=== PATIENT | female | born 1930 | race Caucasian/White ===

== ENCOUNTER 2017-06-07 08:22 | Inpatient (IN) ==
--- NOTE | 2017-06-07 09:09 | XRay Report ---
CLINICAL INFORMATION: Right hip injury TECHNIQUE: AP pelvis. AP and lateral right hip COMPARISON: None. FINDINGS: Comminuted right intertrochanteric hip fracture with foreshortening and varus angulation deformity. Pelvis is negative. No fracture. No lytic lesion. Sacrum is negative. IMPRESSION: Right intertrochanteric hip fracture as above Interpreted and Authenticated by: Hugo Alejandre 06/07/17
--- NOTE | 2017-06-07 09:10 | XRay Report ---
INDICATION: Preoperative evaluation. Hip fracture. TECHNIQUE: AP chest x-ray,supine portable COMPARISON: None FINDINGS:Lungs are negative. No parenchymal infiltrate or mass. Heart size and vascularity are normal. No pulmonary edema. No pulmonary congestion. Flaquita and mediastinum are negative. IMPRESSION: Negative AP portable chest x-ray Interpreted and Authenticated by: Hugo Alejandre 06/07/17
--- NOTE | 2017-06-07 09:16 | Emergency Department Note ---
Fall HPI - General Chief Complaint: Fall Stated Complaint: Fall, hip pain Time Seen by Provider: 06/07/17 09:15 Source: EMS Mode of arrival: EMS - History of Present Illness HPI Narrative: Patient presents, third fall in the last week. Moved to long-term care facility within the last year, previously under the care of Dr. Clay Dimas in [place]. Advancing dementia, generally in good health. Recent falls included closed head injury, lip laceration, and chest contusion. Unobserved fall today , brought in by ambulance due to pain, treated in route due to suspected hip fracture. Patient poor historian. Daughter and POA at the bedside. Discussion of goals of care, has confirmed with family for surgery, DNR status otherwise. - Related Data Allergies Allergy/AdvReac Type Severity Reaction Status Date / Time penicillin V Allergy Intermediate RASH Unverified 10/30/14 23:45 Sulfa (Sulfonamide Allergy Unknown Verified 06/07/17 08:33 Antibiotics) Review of Systems Limitations: ROS unobtainable due to patients medical condition Fall PMH - Past Medical History Attestation: Yes: The following information was validated with the patient. PMFSH Narrative: History Per POA Medical history: Reports: dementia. Denies: COPD, coronary artery disease Surgical history ED: Reports: other (Ankle fusion) Family history: Reports: non-contributory - Social History smoking status: Unknown if ever smoked Physical Exam Limitations: altered mental status General appearance: alert, in distress Head: other (Crusted blood, dry on the occiput) Eye: Present: normal appearance, PERRL ENT: normal exam, mucous membranes dry Neck: Present: tenderness (With range of motion, unable to localize) Chest: Present: normal inspection Respiratory: Present: normal lung sounds bilaterally. Absent: respiratory distress Cardiovascular: Present: regular rate, normal rhythm. Absent: systolic murmur Abdominal: Present: soft. Absent: tenderness Extremities: Present: other (Shortened right leg; intact cap refill bilateral) Neurological: Present: alert. Absent: oriented X3 Skin: Present: warm, dry Course - Reevaluation(s) Reevaluation #1: Dr Korey elias, hospitalist to consult Time: 11:19 Vital Signs Temperature 97.7 F 06/07/17 08:24 Pulse Rate 86 06/07/17 08:24 Respiratory Rate 18 01/10/18 08:24 Blood Pressure 157/73 01/10/18 08:24 Pulse Oximetry (%) 97 06/07/17 08:24 Temperature 97.7 F 06/07/17 08:24 Pulse Rate 89 06/07/17 10:12 Respiratory Rate 18 06/07/17 08:24 Blood Pressure 162/74 06/07/17 10:12 Pulse Oximetry (%) 100 06/07/17 10:12 Fall - Lab Data Lab results reviewed: Yes I reviewed the patient's lab results. Result diagrams: 06/07/17 09:10 06/07/17 09:10 Lab Results 06/07/17 06/07/17 06/07/17 Range/Units 09:10 09:10 09:10 WBC 9.3 (4.5-11.0) K/mcL RBC 3.92 L (4.00-5.20) M/mcL Hgb 12.7 (12.0-15.0) g/dL Hct 37.5 (36.0-48.0) % MCV 95.7 (80.0-100.0) fL MCH 32.4 (26.0-34.0) pg MCHC 33.9 (31.0-36.0) g/dL RDW 12.7 (11.5-14.5) % Plt Count 212 (140-440) K/mcL MPV 6.8 L (7.4-10.4) fL Gran % 85.3 H (38.0-78.0) % Lymph % (Auto) 9.2 L (15.5-49.0) % Darke % (Auto) 4.6 (1.0-12.0) % Eos % (Auto) 0.7 (0.0-7.0) % Baso % (Auto) 0.2 (0.0-2.0) % Gran # 8.0 (1.8-8.0) K/mcL Lymph # (Auto) 0.9 L (1.5-4.8) K/mcL Darke # (Auto) 0.4 (0.1-0.9) K/mcL Eos # (Auto) 0.1 (0.0-0.7) K/mcL Baso # (Auto) 0 (0.0-0.3) K/mcL PT 13.8 (11.9-14.5) sec INR 1.0 (0.9-1.1) Sodium 140 (133-145) mmol/L Potassium 3.9 (3.3-5.1) mmol/L Chloride 104 (96-108) mmol/L Carbon Dioxide 22 (22-30) mmol/L Anion Gap 14.0 (8-16) BUN 20 (8-23) mg/dl Creatinine 0.9 (0.6-1.1) mg/dl GFR Calculation 57 Glucose 130 H (70-105) mg/dL Calcium 8.3 L (8.6-10.4) mg/dl Total Bilirubin 1.0 (0.0-1.0) mg/dL AST 18 (0-37) U/l ALT 12 (0-40) U/l Alkaline Phosphatase 68 (39-117) U/L Total Protein 6.2 (5.9-8.4) gm/dL Albumin 3.5 (3.2-5.2) gm/dL Globulin 2.7 (2.2-3.7) gm/dL Albumin/Globulin Ratio 1.3 (1.0-2.3) - Radiology Data Radiology results reviewed: Yes I reviewed the patient's radiology results. Right intertrochanteric fracture Chest x-ray No acute findings on head and neck CT Disposition Pt seen by [facility]DER/PA only: No Clinical Impression: Dementia Intertrochanteric fracture of right hip Qualifiers: Encounter type: initial encounter Fracture type: closed Fracture alignment: displaced Qualified Code(s): S72.141A - Displaced intertrochanteric fracture of right femur, initial encounter for closed fracture Summary: Discussed with family, previously ambulatory, family wanting to pursue surgery Disposition: Xfer As Inpt ([facility]) Condition: Fair Referrals: Vic Dimas MD [Primary Care Provider] -
[2017-06-07] MEDS ORDERED: HYDROmorphone 2 MG/ML SYRINGE IV PRN ×3 (09:42→18:25)
[2017-06-07 09:46] LABS: Basophils # (Auto) 0 K/mcL (0.0-0.3); Basophils % (Auto) 0.2 % (0.0-2.0); Eosinophils # (Auto) 0.1 K/mcL (0.0-0.7); Eosinophils % (Auto) 0.7 % (0.0-7.0); Granulocytes % (Auto) 85.3 % (38.0-78.0); Lymphocytes # (Auto) 0.9 K/mcL (1.5-4.8); Lymphocytes % (Auto) 9.2 % (15.5-49.0); Mean Cell Volume 95.7 fL (80.0-100.0); Mean Corpuscular HGB Conc 33.9 g/dL (31.0-36.0); Mean Corpuscular Hemoglobin 32.4 pg (26.0-34.0); Monocytes # (Auto) 0.4 K/mcL (0.1-0.9); Monocytes % (Auto) 4.6 % (1.0-12.0); Platelet Count 212 K/mcL (140-440); RBC 3.92 M/mcL (4.00-5.20); Red Cell Distribution Width 12.7 % (11.5-14.5)
[2017-06-07 10:09] LABS: ALT/SGPT 12 U/l (0-40); Albumin 3.5 gm/dL (3.2-5.2); Albumin/Globulin Ratio 1.3 (1.0-2.3); Alkaline Phosphatase 68 U/L (39-117); Blood Urea Nitrogen 20 mg/dl (8-23)
--- NOTE | 2017-06-07 10:16 | Cat Scan Report ---
CLINICAL INFORMATION: Fall. Head injury. COMPARISON: None. TECHNIQUE: Axial noncontrast-enhanced images through the brain. FINDINGS: No acute intracranial hemorrhage. No subdural hematoma. No subarachnoid hemorrhage. No intra-axial hematoma. No focal attenuation abnormality or localized mass effect. No midline shift. Cerebral atrophy with enlarged ventricles and prominent superficial subarachnoid spaces. There is white matter abnormality with low density in a predominantly periventricular distribution. Brainstem and cerebellum are negative. Basilar cisterns are negative. No calvarial fracture. Temporal bones are negative. IMPRESSION: 1. No posttraumatic abnormality 2. No acute intracranial hemorrhage. 3. Cerebral atrophy and white matter abnormality Interpreted and Authenticated by: Hugo Alejandre 06/07/17
--- NOTE | 2017-06-07 10:19 | Cat Scan Report ---
CLINICAL INFORMATION: Fall TECHNIQUE: Thin section axial images through the cervical spine. Sagittally and coronally reformatted images COMPARISON: None. FINDINGS: No cervical spine fracture. Cervical vertebral bodies and spinous processes are negative. Facet joints are normally aligned. No perched or locked facet. Odontoid process is negative. No lateral axial subluxation. C1 and necks of both condyles are negative. Multilevel degenerative disc disease and facet arthropathy. Severe degenerative disc disease C4-C5, C5-C6, C6-C7. No prevertebral soft tissue swelling. Lung apices are negative. No pneumothorax. IMPRESSION: 1. Multilevel degenerative disc disease and facet arthropathy 2. No cervical spine fracture. Interpreted and Authenticated by: Hugo Alejandre 06/07/17
[2017-06-07] MEDS ORDERED: HALOPERIDOL LACTATE 5 MG/ML VIAL IV ONE (13:36)
[2017-06-07] MEDS ORDERED: oxyCODONE/APAP 5/325MG TABLET PO PRN (13:50)
[2017-06-07 14:34] LABS: Appearance,Urine CLEAR; Bacteria,Urine 0 /hpf (0); Bilirubin,Urine NEG (NEG); Color,Urine YELLOW; Glucose,Urine (UA) NEGATIVE (NEG); Leukocyte Esterase,Urine NEG /uL (NEG); Mucus,Urine FEW /hpf (0); Nitrate,Urine NEG (NEG); Protein,Urine NEG (NEG); Specific Gravity,Urine 1.013 (1.000-1.035); Urine Blood 0.03 mg/dL (<0.03); Urine RBC < 1 /hpf (0-1); Urine Squamous Epithelial Cell 0 /hpf (0-4); Urine WBC < 1 /hpf (0-4); Urobilinogen,Urine NEG (NEG)
[2017-06-07] MEDS: 0.9 % SODIUM CHLORIDE 10 ML SYRINGE IV SCH ×2 (15:35→21:53)
[2017-06-07] MEDS ORDERED: ceFAZolin 1 GM VIAL IV ONE (16:37)
[2017-06-07] MEDS ORDERED: DEXAMETHASONE 10 MG/ML VIAL IV ONE (17:10)
[2017-06-07] MEDS ORDERED: PROPOFOL 200 MG/20 ML VIAL IV ONE (17:10)
[2017-06-07] MEDS ORDERED: ONDANSETRON 4 MG/2 ML VIAL IV ONE (17:10)
[2017-06-07] MEDS ORDERED: LIDOCAINE HCL/PF 100 MG/5 ML SYRINGE IV ONE (17:10)
[2017-06-07] MEDS ORDERED: ATROPINE SULFATE 0.4 MG/ML VIAL IV PRN (18:14)
[2017-06-07] MEDS ORDERED: fentaNYL 100 MCG/2 ML VIAL IV PRN (18:14)
[2017-06-07] MEDS ORDERED: diphenhydrAMINE 50 MG/ML VIAL IV PRN (18:14)
[2017-06-07] MEDS ORDERED: FLUMAZENIL 0.1 MG/ML ML IV PRN (18:14)
[2017-06-07] MEDS ORDERED: ePHEDrine 50 MG/ML AMPUL IV PRN (18:14)
[2017-06-07] MEDS ORDERED: ONDANSETRON 4 MG/2 ML VIAL IV PRN (18:14)
[2017-06-07] MEDS ORDERED: PROMETHAZINE 25 MG/ML VIAL IV PRN (18:14)
[2017-06-07] MEDS ORDERED: NALOXONE HCL 0.4 MG/ML VIAL IV PRN (18:14)
[2017-06-07] MEDS ORDERED: IPRATROPIUM/ALBUTEROL 3 ML AMPUL.NEB NEB PRN (18:14)
[2017-06-07] MEDS ORDERED: BENZOCAINE/MENTHOL 1 LOZENGE PO PRN ×2 (18:14→18:25)
[2017-06-07] MEDS ORDERED: MEPERIDINE 25 MG/ML SYRINGE IV PRN (18:14)
[2017-06-07] MEDS ORDERED: LACTATED RINGERS 1,000 ML IV SCH (18:15)
[2017-06-07] MEDS ORDERED: MAGNESIUM HYDROXIDE 30 ML ORAL.SUSP PO PRN (18:25)
[2017-06-07] MEDS ORDERED: TEMAZEPAM 15 MG CAPSULE PO PRN (18:25)
[2017-06-07] MEDS ORDERED: TRANEXAMIC ACID 1,000 MG/10 ML VIAL IV ONE (18:25)
[2017-06-07] MEDS ORDERED: KETOROLAC 15 MG/ML VIAL IV PRN (18:25)
[2017-06-07] MEDS ORDERED: ACETAMINOPHEN 325 MG TABLET PO PRN (18:25)
[2017-06-07] MEDS ORDERED: POLYETHYLENE GLYCOL 3350 17 GM PACKET PO PRN (18:25)
[2017-06-07] MEDS ORDERED: BISACODYL 10 MG SUPP.RECT PR PRN (18:25)
[2017-06-07] MEDS ORDERED: FLEETS ADULT ENEMA PR PRN (18:25)
--- NOTE | 2017-06-07 18:25 | Brief Operative Note ---
Date of procedure: 06/07/17 Pre-op diagnosis: right hip intertroch hip fx Post-op diagnosis: same Procedure: right intertroch hip fx orif with gamma nail Grafts/Implants: Yes Anesthesia: GETA Complications: none Complications Description: 06/07/17 18:25 none Surgeon: Keith Clinton Electrical Controls Assembler: Rafa Garcia Estimated blood loss (cc): 100 Specimens Removed/Pathology: none sent Condition: stable Disposition: PACU
[2017-06-07] MEDS ORDERED: LORazepam 1 MG TABLET PO PRN (18:30)
--- NOTE | 2017-06-07 19:01 | XRay Report ---
CLINICAL INFORMATION: Postsurgical follow-up TECHNIQUE: Portable AP and crosstable lateral right hip COMPARISON: Preoperative evaluation dated 06/07/2019 FINDINGS: Status post open reduction and internal fixation of a comminuted right intertrochanteric hip fracture. Gamma nail configuration. There is a long length intramedullary now within the femoral diaphysis. Alignment is essentially anatomic. There is displacement of the left lesser trochanter. IMPRESSION: Status post open reduction and internal fixation of a comminuted right intertrochanteric hip fracture Interpreted and Authenticated by: Hugo Alejandre 06/07/17
--- NOTE | 2017-06-07 19:07 | History and Physical Report ---
DATE OF ADMISSION: 06/07/2017 HISTORY OF PRESENT ILLNESS: Juanis is a consultation for an intertrochanteric hip fracture of the right side, was seen in the emergency room and appropriately diagnosed. She had a same level fall, had immediate pain, swelling. She is very confused and has been apparently. She has been in assisted living situation. PAST MEDICAL HISTORY: Fairly healthy. She has no chest pain, shortness of breath. She did not hit her head by account. REVIEW OF SYSTEMS: Unobtainable. The patient does not give a good review of systems. PHYSICAL EXAMINATION: GENERAL: Very pleasant elderly female who is 86 years of age, presents in quite a bit of pain. The right leg is shortened and externally rotated. EXTREMITIES: The foot is pink and warm with a large bruise on the lateral aspect of the hip. No open wounds, lacerations or abrasions. LUNGS: Clear to auscultation. CARDIOVASCULAR: Regular rate and rhythm, no murmurs, rubs, or gallops. LABS: Her labs do show a hematocrit of 37.5. She does have a glucose of 130, but other than that, the labs appear to be fairly in good condition. IMPRESSION: Intertrochanteric fracture, three-part. PLAN: This will need to be reduced open and place an intramedullary ariella. She is a limited ambulator, limited function and confused. The family has expressed the desire for her to be DO NOT RESUSCITATE at all times and they would like the hip fixed, understanding these risks and benefits. They agree to proceed. RBH:db Job ID: [id number] Doc ID: [id number] Keith Clinton MD
[2017-06-07] MEDS: 0.45 % SODIUM CHLORIDE 1,000 ML IV SCH (19:53)
[2017-06-07] MEDS ORDERED: TIMOLOL 0.5% OPHTH DROPS BOTTLE 5ML OU SCH (21:00)
[2017-06-07] MEDS ORDERED: SENNOSIDES 1 TABLET PO SCH (21:00)
--- NOTE | 2017-06-07 21:23 | Internal Med History&Physical ---
Medical - H&P: [facility] Patient information: Note initiated : 06/07/17 at 9:13 pm Service Date, if different from initiated Date: [] Patient: Juanis Berry 86 y/o F admitted on 06/07/17 with R hip fracture after a fall Chief Complaint: [pain R hip after fall] Chief complaint: Pain R hip after fall History of present illness: Ms. Berry is a 86 year old F, resident of an assisted living facility, who presented for evaluation of R hip pain after a fall. Patient has been at the [facility] for one month for progressive dementia. She has been ambulating fairly well , but has had three unwitnessed falls within one week. No fever, cough, SOB noted. Patient is a poor historian, unable to express specific symptoms. As per daughter she had earlier injured her small toe and had been slightly limping, but no other changes were noted before her fall this am. In ED two attempts were made 2 insert a ovalle catheter. Patient appeared uncomfortable and I requested a bladder scan which revealed 780 ml. This may be the cause of patient's fall: bladder retention ROS unobtainable: due to mental status (underlying dementia. was somnolent due to narcotics given for pain) Medical - H&P: Meds Home Medications Medication Instructions Recorded Confirmed Type LORazepam [Ativan] 1 mg PO Q6HP PRN 06/07/17 06/07/17 History Levothyroxine Sodium [Synthroid] 88 mcg PO ACB 06/07/17 06/07/17 History Timolol 0.5% Ophth Drops [Timoptic 1 gtt OU BID 06/07/17 06/07/17 History 0.5% Ophth Drops] Allergies Allergy/AdvReac Type Severity Reaction Status Date / Time penicillin V Allergy Intermediate RASH Verified 06/07/17 14:45 Sulfa (Sulfonamide Allergy Unknown Verified 06/07/17 08:33 Antibiotics) Medical - H&P: Exam - Constitutional Vitals: Temp Pulse Resp BP Pulse Ox 98.2 F 96 H 18 147/69 95 06/07/17 18:50 06/07/17 18:50 06/07/17 18:50 06/07/17 18:50 06/07/17 19:37 General appearance: average body habitus, no acute distress - Head Head exam: Present: normocephalic - Expanded Head Exam Head exam: Present: abrasion, laceration - Expanded ENT Exam Nose & sinuses exam: Present: other (abrasions on nose bridge due to falls) - Neck Neck exam: Present: normal inspection - Respiratory Respiratory exam: Present: normal respiratory exam - Cardiovascular Cardiovascular exam: Present: normal rate and rhythm - GI/Abdominal GI/Abdominal exam: Present: normal bowel sounds, soft - Rectal Rectal exam: Present: deferred - Expanded Exam Bladder Distention Description: Severe - Extremities Exam Extremities exam: Absent: calf tenderness, pedal edema, tenderness - Neurological Exam Additional comments: Somnolent - Expanded Neurological Exam Patient oriented to: Present: person - Skin Skin exam: Present: abrasion Additional comments: Facial abrasions Medical - H&P: Reslt - Labs CBC & Chem 7: 06/07/17 09:10 06/07/17 09:10 Labs: Short CBC 06/07/17 Range/Units 09:10 WBC 9.3 (4.5-11.0) K/mcL Hgb 12.7 (12.0-15.0) g/dL Hct 37.5 (36.0-48.0) % Plt Count 212 (140-440) K/mcL BMP 06/07/17 09:10 Sodium 140 Potassium 3.9 Chloride 104 Carbon Dioxide 22 BUN 20 Creatinine 0.9 Glucose 130 H Calcium 8.3 L Liver Function 06/07/17 Range/Units 09:10 Total Bilirubin 1.0 (0.0-1.0) mg/dL AST 18 (0-37) U/l ALT 12 (0-40) U/l Alkaline Phosphatase 68 (39-117) U/L Albumin 3.5 (3.2-5.2) gm/dL Urine 06/07/17 Range/Units 12:57 Urine Color Yellow Urine Appearance Clear Urine pH 5.0 (5.0-9.0) Ur Specific [place] 1.013 (1.000-1.035) Urine Protein Neg (NEG) mg/dL Urine Glucose (UA) Negative (NEG) mg/dL Medical - H&P: A/P (1) Bladder retention of urine Current visit: Yes Status: Acute (2) Intertrochanteric fracture of right hip Current visit: Yes Status: Acute (3) Dementia Current visit: Yes Status: Acute - Narrative A/P Narrative: 86-year-old female, resident of an [facility], presented 06/07 with: + R HIP FRACTURE AFTER FALL AT HOME xRAY: R intertrochanteric fracture. Surgery done by dr Keith Clinton: ORIF with gamma nail + BLADDER RETENTION 0F > 700 ML + FALLS (UNWITNESSED) May be caused by bladder retention, inability to void. Most likely due to bladder neck obstruction as the nursing staff had difficulty to insert ovalle cath. DVT prophylaxis: SCD. Anticoagulation as per orthopedics Code status: DNR
[2017-06-07] MEDS: ASPIRIN 325 MG ENTERIC COATED TABLET PO SCH (21:53)
[2017-06-07] MEDS: TIMOLOL 0.5% OPHTH DROPS BOTTLE 5ML OU SCH (21:53)
[2017-06-07] MEDS: SENNOSIDES 1 TABLET PO SCH (21:54)
[2017-06-07] MEDS: DOCUSATE SODIUM 100 MG CAPSULE PO SCH (21:54)
[2017-06-08] MEDS: ceFAZolin 1 GM VIAL IV SCH ×2 (01:02→12:18)
[2017-06-08] MEDS: HYDROcodone/APAP 5/325MG TABLET PO PRN (03:33)
[2017-06-08] MEDS: 0.9 % SODIUM CHLORIDE 10 ML SYRINGE IV SCH ×3 (05:09→20:32)
[2017-06-08] MEDS: 0.45 % SODIUM CHLORIDE 1,000 ML IV SCH (05:13)
--- NOTE | 2017-06-08 07:10 | Operative Note ---
DATE OF OPERATION: 06/07/2017 PREOPERATIVE DIAGNOSIS: Right intertrochanteric fracture, three-part. POSTOPERATIVE DIAGNOSIS: Right intertrochanteric fracture, three-part. PROCEDURE: Right, three-part intertrochanteric fracture open reduction and IM nailing with a gamma nail. SURGEON: Keith Clinton MD DIGITAL ASSISTANT: Rafa Garcia PA-C ANESTHESIA: General LMA anesthesia. COMPLICATIONS: None. ESTIMATED BLOOD LOSS: About 100 mL DESCRIPTION OF PROCEDURE: The patient was brought to the operating room and put to sleep with general LMA anesthesia. Once asleep, the patient had the right hip sterilely prepped and draped in the usual sterile fashion. She was placed in the fracture table and the fracture was reduced under image. Once done, we made an incision in line with the superior iliac spine and the posterior greater trochanter. Once done, we dissected through the soft tissue with about a 2 inch incision, identified the greater trochanter, placed a pin centrally and then reamed proximally, placed a guidewire and then reamed up to the size 12. We implanted a 10.5 34 cm nail, then placed an intertrochanteric compression screw and then compressed the fracture once in place, confirming the position to be middle to posterior and inferior position of the head for the maximum quality of bone. The lesser trochanter was off and was irreducible. We obtained a good reduction and irrigated thoroughly and then placed a locking screw. We then placed the distal screw in the dynamic screw hole proximally to bear weight. This was a 37.5 screw. Patient tolerated this well. There was no complication. We irrigated thoroughly, saved images and then closed the wound with 3-0 Monocryl and lola. Sterile bandage was applied. RBH:adam Job ID: [id number] Doc ID: [id number] Keith Clinton MD
[2017-06-08] MEDS ORDERED: LEVOTHYROXINE 88 MCG TABLET PO SCH (07:30)
--- NOTE | 2017-06-08 08:02 | Orthopedic Progress Note ---
Subjective Patient information: Note initiated : 06/08/17 at 8:01 am Service Date, if different from initiated Date: [] Patient: Juanis Berry 86 y/o F admitted on 06/07/17 for Right gamma Nail. Chief Complaint: [post op day one she is alert and talking with out much hip pain and no sob and no cp] Objective Vital signs: Vital Signs Temp Pulse Pulse Resp BP BP Pulse Ox 06/08/17 07:24 97.3 F 20 153/75 95 06/08/17 06:57 96 H 06/08/17 06:00 94 06/08/17 03:40 98.1 F 91 H 20 129/75 94 06/08/17 02:00 96 06/07/17 23:43 97.8 F 83 20 91/56 96 06/07/17 22:00 96 06/07/17 21:50 98.5 F 102 H 18 148/74 97 06/07/17 20:50 93 H 106/62 97 06/07/17 20:20 106 H 134/69 91 06/07/17 19:50 102 H 135/74 96 06/07/17 19:37 95 06/07/17 19:35 105 H 122/54 91 06/07/17 19:20 105 H 104/50 97 06/07/17 19:05 98.8 F 104 H 20 134/81 92 06/07/17 18:50 98.2 F 96 H 18 147/69 98 06/07/17 18:35 98.2 F 101 H 18 145/73 06/07/17 18:26 97 06/07/17 18:20 98.2 F 101 H 18 162/102 100 06/07/17 13:59 20 06/07/17 13:31 110 H 164/95 96 06/07/17 13:01 151/88 06/07/17 12:30 147/95 06/07/17 12:01 93 H 155/70 97 06/07/17 11:30 96 H 164/71 98 06/07/17 11:01 151/96 06/07/17 10:32 169/93 06/07/17 10:12 89 162/74 100 06/07/17 09:46 143/64 06/07/17 09:31 137/62 01/10/18 09:17 119/68 06/07/17 09:01 148/91 06/07/17 08:51 153/69 06/07/17 08:24 97.7 F 86 18 157/73 97 Intake and Output 06/07/17 06/08/17 06/08/17 21:59 05:59 13:59 Intake Total 900 / 900 933 / 933 Output Total 150 / 150 175 / 175 Balance 750 / 750 758 / 758 Intake: IV 933 / 933 Sodium Chloride 0.45% 1,000 ml 933 / 933 @ 100 mls/hr IV .Q10H NICHOLAS Rx#: [id number] IV - Manual Only 900 / 900 Output: Urine Catheter Amount 150 / 150 175 / 175 Other: Weight 139 lb 8 oz Intake & Output: Intake & Output 06/07/17 06/08/17 06/08/17 21:59 05:59 13:59 Intake Total 900 / 900 933 / 933 Output Total 150 / 150 175 / 175 Balance 750 / 750 758 / 758 Weight 139 lb 8 oz Intake: IV 933 / 933 Sodium Chloride 0.45% 1,000 ml 933 / 933 @ 100 mls/hr IV .Q10H NICHOLAS Rx#: [id number] IV - Manual Only 900 / 900 Output: Urine Catheter Amount 150 / 150 175 / 175 Incision: Yes healing Incision clean and dry: Yes Dressing: Yes clean Weight bearing status: full Neurological exam IM: Yes alert, Yes oriented X3, Yes neurovascular intact Extremities exam IM: Yes Foot pink and warm (will dc [facility]), Yes neurovascular intact - Labs CBC & BMP: 06/08/17 03:51 06/07/17 09:10 Labs: Orthopedic Labs 06/07/17 09:10 PT 13.8 INR 1.0 06/08/17 06/07/17 03:51 09:10 Hgb 12.7 Hct 33.6 L 37.5
[2017-06-08] MEDS: ASPIRIN 325 MG ENTERIC COATED TABLET PO SCH ×2 (08:43→20:31)
[2017-06-08] MEDS: DOCUSATE SODIUM 100 MG CAPSULE PO SCH ×2 (08:43→20:31)
[2017-06-08] MEDS: LEVOTHYROXINE 88 MCG TABLET PO SCH (08:53)
[2017-06-08] MEDS ORDERED: ceFAZolin 1 GM VIAL IV ONE (12:15)
[2017-06-08] MEDS: TIMOLOL 0.5% OPHTH DROPS BOTTLE 5ML OU SCH ×2 (12:21→20:32)
[2017-06-08] MEDS: ACETAMINOPHEN 325 MG TABLET PO PRN ×2 (14:38→20:34)
[2017-06-08] MEDS: SENNOSIDES 1 TABLET PO SCH (20:31)
[2017-06-08] MEDS: LORazepam 0.5 MG TABLET PO PRN (20:35)
--- NOTE | 2017-06-08 21:52 | Internal Med Progress Note ---
Medical - PN: Subj Patient information: Note initiated : 06/08/17 at 9:50 pm Service Date, if different from initiated Date: [] Patient: Juanis Berry 86 y/o F admitted on 06/07/17 for Right Gamma Nail/Rt Hip Fracture,Bladder Retention. Interval history: 06/07: + R HIP FRACTURE AFTER FALL AT HOME xRAY: R intertrochanteric fracture. Surgery done by dr Keith Clinton: ORIF with gamma nail + BLADDER RETENTION 0F > 700 ML 06/08: Ambulating well with PT. Confusion more apparent when alone in room. - Constitutional Vitals: Vital Signs Temp Pulse Resp BP Pulse Ox 98.1 F 96 H 18 120/58 94 06/08/17 20:34 06/08/17 06:57 06/08/17 20:00 06/08/17 20:00 06/08/17 20:00 Period Temp Pulse Resp BP Sys/Patrick Pulse Ox Last 24 Hr 97.3 F-98.6 F 83-96 18-20 91-153/56-75 94-96 Intake and Output 06/08/17 06/08/17 06/08/17 05:59 13:59 21:59 Intake Total 933 / 933 200 / 200 240 / 240 Output Total 175 / 175 1000 / 1000 Balance 758 / 758 -800 / -800 240 / 240 Weight 139 lb 8 oz 139 lb 8 oz Patient Weight 06/09/17 05:59 Weight 139 lb 8 oz Intake & Output: Intake & Output 06/08/17 06/08/17 06/08/17 05:59 13:59 21:59 Intake Total 933 / 933 200 / 200 240 / 240 Output Total 175 / 175 1000 / 1000 Balance 758 / 758 -800 / -800 240 / 240 Weight 139 lb 8 oz 139 lb 8 oz Intake: IV 933 / 933 Sodium Chloride 0.45% 1,000 ml 933 / 933 @ 100 mls/hr IV .Q10H NICHOLAS Rx#: [id number] Oral 200 / 200 240 / 240 Output: Urine Catheter Amount 175 / 175 1000 / 1000 Other: Meal Lunch Dinner Percent of Meal Consumed 100% 75% Feeding Ability Independent Assist with Tray Set Up General appearance: no acute distress, thin - Respiratory Respiratory exam: Present: normal respiratory exam - Cardiovascular Cardiovascular exam: Present: normal rate and rhythm - GI/Abdominal GI/Abdominal exam: Present: normal bowel sounds - Extremities Exam Extremities exam: Absent: pedal edema Medical - PN: Obj Da - Labs CBC & Chem 7: 06/08/17 03:51 06/07/17 09:10 Labs: Abnormal Lab Results 06/08/17 06/07/17 06/07/17 03:51 12:57 09:10 RBC Hct 33.6 L MPV Gran % Lymph % (Auto) Lymph # (Auto) Glucose 130 H Calcium 8.3 L Urine Ketones 5/tr A Urine Occult Blood 0.03 A 06/07/17 09:10 RBC 3.92 L Hct MPV 6.8 L Gran % 85.3 H Lymph % (Auto) 9.2 L Lymph # (Auto) 0.9 L Glucose Calcium Urine Ketones Urine Occult Blood Meds: Medications Acetaminophen (Tylenol) 650 mg PO Q6HP PRN PRN Reason: PAIN/FEVER > 101 Last Admin: 06/08/17 20:34 Dose: 650 mg Hydrocodone Bitart/Acetaminophen ([place] 5/325mg) 0 tab PO Q4HP PRN PRN Reason: PAIN LEVEL 3-6 Last Admin: 06/08/17 03:33 Dose: 1 tab Aspirin (Ecotrin) 325 mg PO BID [facility] Last Admin: 06/08/17 20:31 Dose: 325 mg Bisacodyl (Dulcolax) 10 mg UT Q2-3DAYS PRN PRN Reason: Constipation Docusate Sodium (Colace) 100 mg PO BID [facility] Last Admin: 06/08/17 20:31 Dose: 100 mg Hydromorphone HCl (Dilaudid) 0 mg IV Q2HP PRN PRN Reason: PAIN LEVEL > 6 Ketorolac Tromethamine (Toradol) 15 mg IV Q6HP PRN PRN Reason: Pain Stop: 06/09/17 18:26 Last Admin: 06/07/17 21:59 Dose: 15 mg Levothyroxine Sodium (Synthroid) 88 mcg PO QAMAC [facility] Last Admin: 06/08/17 08:53 Dose: 88 mcg Lorazepam (Ativan) 0.5 mg PO Q4HP PRN PRN Reason: ANXIETY/SEDATION Last Admin: 06/08/17 20:35 Dose: 0.5 mg Magnesium Hydroxide (Milk Of Magnesia) 30 ml PO BIDP PRN PRN Reason: Constipation Polyethylene Glycol (Miralax) 17 gm PO DAILYP PRN PRN Reason: Constipation Senna (Senokot) 2 tab PO HS [facility] Last Admin: 06/08/17 20:31 Dose: 2 tab Sodium Biphosphate/Sodium Phosphate (Fleets Adult) 1 dose UT Q3-4DAYS PRN PRN Reason: Constipation Sodium Chloride (Saline Flush) 10 ml IV Q8 [facility] Last Admin: 06/08/17 20:32 Dose: 10 ml Throat Lozenges (Cepacol) 1 lozenge PO PRN PRN PRN Reason: Sore Throat Timolol Maleate (Timoptic 0.5% Ophth Drops) 1 gtt OU BID [facility] Last Admin: 06/08/17 20:32 Dose: Not Given Medical - PN: A/P - Time Spent With Patient Total time spent is greater than 50% in coordination of care (as documented) at patient's floor/unit and/or counseling patient: less than 15 minutes (1) Bladder retention of urine Status: Acute Current Visit: Yes (2) Intertrochanteric fracture of right hip Status: Acute Current Visit: Yes (3) Dementia Status: Acute Current Visit: Yes - Narrative A/P Narrative: 86-year-old female, resident of an [facility], presented 06/07 with: + R HIP FRACTURE AFTER FALL AT HOME xRAY: R intertrochanteric fracture. Surgery done by dr Keith Clinton: ORIF with gamma nail + BLADDER RETENTION 0F > 700 ML Urine c/s: NG + FALLS (UNWITNESSED) May be caused by bladder retention, inability to void. Most likely due to bladder neck obstruction as the nursing staff had difficulty to insert ovalle cath. DVT prophylaxis: per ortho service Dispo: SNF for rehab
[2017-06-09] MEDS: HYDROcodone/APAP 5/325MG TABLET PO PRN ×5 (00:43→20:13)
[2017-06-09] MEDS: 0.9 % SODIUM CHLORIDE 10 ML SYRINGE IV SCH ×3 (06:00→20:15)
[2017-06-09] MEDS: LEVOTHYROXINE 88 MCG TABLET PO SCH (07:43)
[2017-06-09] MEDS: TIMOLOL 0.5% OPHTH DROPS BOTTLE 5ML OU SCH ×2 (08:54→21:18)
[2017-06-09] MEDS: DOCUSATE SODIUM 100 MG CAPSULE PO SCH ×2 (08:55→21:18)
[2017-06-09] MEDS: ASPIRIN 325 MG ENTERIC COATED TABLET PO SCH ×2 (08:55→20:13)
[2017-06-09] MEDS: ACETAMINOPHEN 325 MG TABLET PO PRN (08:55)
--- NOTE | 2017-06-09 18:14 | Internal Med Progress Note ---
Medical - PN: Subj Patient information: Note initiated : 06/09/17 at 5:44 pm Service Date, if different from initiated Date: [] Patient: Juanis Berry 86 y/o F admitted on 06/07/17 for Right Gamma Nail/Rt Hip Fracture,Bladder Retention. Chief Complaint: [] Interval history: 06/07: + R HIP FRACTURE AFTER FALL AT HOME xRAY: R intertrochanteric fracture. Surgery done by dr Keith Clinton: ORIF with gamma nail + BLADDER RETENTION 0F > 700 ML 06/08: Ambulating well with PT. Confusion more apparent when alone in room. 06/09: Doing well. Mildly delirious at night. No fever. pain controlled. - Constitutional Vitals: Vital Signs Temp Pulse Resp BP Pulse Ox 98.2 F 98 H 20 137/72 95 06/09/17 15:57 06/09/17 07:50 06/09/17 15:57 06/09/17 15:57 06/09/17 15:57 Period Temp Pulse Resp BP Sys/Patrick Pulse Ox Last 24 Hr 97.2 F-98.2 F 98 16-20 104-137/58-74 92-97 Intake and Output 06/09/17 06/09/17 06/09/17 05:59 13:59 21:59 Intake Total 500 / 500 480 / 480 900 / 900 Output Total 475 / 475 400 / 400 Balance 25 / 480 / 480 500 / 500 Intake & Output: Intake & Output 06/09/17 06/09/17 06/09/17 05:59 13:59 21:59 Intake Total 500 / 500 480 / 480 900 / 900 Output Total 475 / 475 400 / 400 Balance 25 / 25 480 / 480 500 / 500 Intake: Oral 500 / 500 480 / 480 900 / 900 Output: Urine Catheter Amount 475 / 475 400 / 400 Other: Meal Lunch Percent of Meal Consumed 50% Feeding Ability Assist with Tray Set Up # Bowel Movements 1 0 General appearance: no acute distress - Respiratory Respiratory exam: Present: normal respiratory exam - Cardiovascular Cardiovascular exam: Present: normal rate and rhythm - GI/Abdominal GI/Abdominal exam: Present: normal bowel sounds, soft - Extremities Exam Extremities exam: Absent: calf tenderness Medical - PN: Obj Da - Labs CBC & Chem 7: 06/08/17 03:51 06/07/17 09:10 Labs: Abnormal Lab Results 06/08/17 06/07/17 06/07/17 03:51 12:57 09:10 RBC Hct 33.6 L MPV Gran % Lymph % (Auto) Lymph # (Auto) Glucose 130 H Calcium 8.3 L Urine Ketones 5/tr A Urine Occult Blood 0.03 A 06/07/17 09:10 RBC 3.92 L Hct MPV 6.8 L Gran % 85.3 H Lymph % (Auto) 9.2 L Lymph # (Auto) 0.9 L Glucose Calcium Urine Ketones Urine Occult Blood Meds: Medications Acetaminophen (Tylenol) 650 mg PO Q6HP PRN PRN Reason: PAIN/FEVER > 101 Last Admin: 06/09/17 08:55 Dose: 650 mg Hydrocodone Bitart/Acetaminophen ([place] 5/325mg) 0 tab PO Q4HP PRN PRN Reason: PAIN LEVEL 3-6 Last Admin: 06/09/17 16:56 Dose: 1 tab Aspirin (Ecotrin) 325 mg PO BID [facility] Last Admin: 06/09/17 08:55 Dose: 325 mg Bisacodyl (Dulcolax) 10 mg VA Q2-3DAYS PRN PRN Reason: Constipation Docusate Sodium (Colace) 100 mg PO BID [facility] Last Admin: 06/09/17 08:55 Dose: 100 mg Hydromorphone HCl (Dilaudid) 0 mg IV Q2HP PRN PRN Reason: PAIN LEVEL > 6 Ketorolac Tromethamine (Toradol) 15 mg IV Q6HP PRN PRN Reason: Pain Stop: 06/09/17 18:26 Last Admin: 06/07/17 21:59 Dose: 15 mg Levothyroxine Sodium (Synthroid) 88 mcg PO QAMAC [facility] Last Admin: 06/09/17 07:43 Dose: 88 mcg Lorazepam (Ativan) 0.5 mg PO Q4HP PRN PRN Reason: ANXIETY/SEDATION Last Admin: 06/08/17 20:35 Dose: 0.5 mg Magnesium Hydroxide (Milk Of Magnesia) 30 ml PO BIDP PRN PRN Reason: Constipation Polyethylene Glycol (Miralax) 17 gm PO DAILYP PRN PRN Reason: Constipation Senna (Senokot) 2 tab PO HS [facility] Last Admin: 06/08/17 20:31 Dose: 2 tab Sodium Biphosphate/Sodium Phosphate (Fleets Adult) 1 dose VA Q3-4DAYS PRN PRN Reason: Constipation Sodium Chloride (Saline Flush) 10 ml IV Q8 [facility] Last Admin: 06/09/17 13:03 Dose: 10 ml Throat Lozenges (Cepacol) 1 lozenge PO PRN PRN PRN Reason: Sore Throat Timolol Maleate (Timoptic 0.5% Ophth Drops) 1 gtt OU BID [facility] Last Admin: 06/09/17 08:54 Dose: 1 drop Medical - PN: A/P - Time Spent With Patient Total time spent is greater than 50% in coordination of care (as documented) at patient's floor/unit and/or counseling patient: (1) Bladder retention of urine Status: Acute Current Visit: Yes (2) Intertrochanteric fracture of right hip Status: Acute Current Visit: Yes (3) Dementia Status: Acute Current Visit: Yes - Narrative A/P Narrative: 86-year-old female, resident of an [facility], presented 06/07 with: + R HIP FRACTURE AFTER FALL AT HOME xRAY: R intertrochanteric fracture. Surgery done by dr Keith Clinton: ORIF with gamma nail + BLADDER RETENTION 0F > 700 ML Urine c/s: NG + FALLS (UNWITNESSED) May be caused by bladder retention, inability to void. Most likely due to bladder neck obstruction as the nursing staff had difficulty to insert ovalle cath. DVT prophylaxis: per ortho service Dispo: SNF for rehab
[2017-06-09] MEDS: LORazepam 0.5 MG TABLET PO PRN (20:13)
[2017-06-09] MEDS: SENNOSIDES 1 TABLET PO SCH (21:18)
[2017-06-10] MEDS: HYDROcodone/APAP 5/325MG TABLET PO PRN ×2 (03:08→07:00)
[2017-06-10] MEDS: 0.9 % SODIUM CHLORIDE 10 ML SYRINGE IV SCH (05:57)
[2017-06-10] MEDS: LEVOTHYROXINE 88 MCG TABLET PO SCH (07:00)
[2017-06-10] MEDS: ASPIRIN 325 MG ENTERIC COATED TABLET PO SCH (08:40)
[2017-06-10] MEDS: DOCUSATE SODIUM 100 MG CAPSULE PO SCH (08:40)
[2017-06-10] MEDS: TIMOLOL 0.5% OPHTH DROPS BOTTLE 5ML OU SCH ×2 (08:40→08:47)
--- NOTE | 2017-06-10 09:05 | Discharge Summary ---
Medical - DS: Prov Patient information: Note initiated : 06/10/17 at 8:56 am Service Date, if different from initiated Date: [] Patient: Juanis Berry 86 y/o F admitted on 06/07/17 for Right Gamma Nail/Rt Hip Fracture,Bladder Retention. Chief Complaint: [] Date of admission: 06/07/17 13:59 Discharge date: 06/10/17 Primary care physician: Vic Dimas Consults: 06/07/17 11:15 Consult to Physician [CONS] Stat Comment: Consulting Provider: Bhupinder Pierce Reason For Exam: Physician to Consult 06/07/17 11:16 Consult to Physician [CONS] Stat Comment: Consulting Provider: Keith Clinton Reason For Exam: Physician to Consult Medical - DS: Meds - Discharge Medications Prescriptions: Acetaminophen [Tylenol] 650 mg PO Q6HP PRN #30 tablet PRN Reason: Pain/Fever > 101 Active and Home Medications: Home Medications LORazepam [Ativan] 1 mg PO Q6HP PRN 06/07/17 [History Confirmed 06/07/17 Last Taken 06/06/17 08:42] Levothyroxine Sodium [Synthroid] 88 mcg PO ACB 06/07/17 [History Confirmed 06/07 Last Taken 06/06/17 07:00] Timolol 0.5% Ophth Drops [Timoptic 0.5% Ophth Drops] 1 gtt OU BID 06/07/17 [ History Confirmed 06/07/17 Last Taken 06/06/17 18:00] Medical - DS: Hosp Hospital course: History of present illness: Ms. Berry is a 86 year old F, resident of an assisted living facility, who presented for evaluation of R hip pain after a fall. Patient has been at the [facility] for one month for progressive dementia. She has been ambulating fairly well , but has had three unwitnessed falls within one week. No fever, cough, SOB noted. Patient is a poor historian, unable to express specific symptoms. As per daughter she had earlier injured her small toe and had been slightly limping, but no other changes were noted before her fall this am. In ED two attempts were made 2 insert a ovalle catheter. Patient appeared uncomfortable and I requested a bladder scan which revealed 780 ml. This may be the cause of patient's fall: bladder retention HOSPITAL COURSE Patient was admitted with the following problems: + R HIP FRACTURE AFTER FALL AT HOME xRAY: R intertrochanteric fracture. Surgery done by dr Keith Clinton on 06/07: ORIF with gamma nail Patient tolerated the procedure well and has been ambulating with PT. She has minimal pain and the incisions look fine. + BLADDER RETENTION 0F > 700 ML Insertion of ovalle cath met with resistance and required several attempts. Urine c/s: NG Indwelling ovalle catheter in place. Suggest leaving the ovalle catheter in place till patient is able to ambulate independently and safely. Referral to urology is advised for evaluation of urethral obstruction/narrowing. + FALLS (UNWITNESSED) May be caused by bladder retention, inability to void. Most likely due to bladder neck obstruction as the nursing staff had difficulty to insert ovalle cath. + DEMENTIA Is cooperative and conversant, but has episodes of worsening confusion especially at night. Patient will be discharged to SNF this am for ongoing rehab. Medication reconciliation was done with her daughter. Discharge diagnosis: R hip fracture, urinary retention. Secondary discharge diagnosis: DEMENTIA Reason for admission: R hip fracture after a fall. Pertinent studies/significant findings: 06/07: Right intertrochanteric hip fractur 06/07: Status post open reduction and internal fixation of a comminuted right intertrochanteric hip fracture 06/07: CT-head: IMPRESSION: 1. No posttraumatic abnormality 2. No acute intracranial hemorrhage. 3. Cerebral atrophy and white matter abnormality Complications: NONE - Time Spent with Patient Total time spent providing and/or coordinating discharge services: Less than 30 minutes Medical - DS: Exam - Constitutional Vitals: Vital Signs Temp Pulse Pulse Resp BP Pulse Ox 06/10/17 04:00 98.2 F 92 H 97 H 18 111/68 97 06/09/17 20:00 97.4 F 97 H 18 144/70 95 06/09/17 15:57 98.2 F 20 137/72 95 06/09/17 13:06 97 06/09/17 12:00 97.8 F 16 104/68 97 06/09/17 10:00 96 Intake and Output 06/09/17 06/10/17 06/10/17 21:59 05:59 13:59 Intake Total 950 / 950 500 / 500 Output Total 400 / 400 750 / 750 Balance 550 / 550 -250 / -250 Intake: Oral 950 / 950 500 / 500 Output: Urine Catheter Amount 400 / 400 750 / 750 Other: Meal Dinner Breakfast Percent of Meal Consumed 75% 100% Feeding Ability Assist with Tray Set Up Independent # Bowel Movements 0 1 Weight 138 lb 8 oz Medical - DS: A/P - Patient/Caregiver Discharge Instructions Activity: as per physical therapy Diet: Regular Diet Additional Instructions: Discharge Instructions: Do the exercises that physical therapy gave you throughout the day. Wear comfortable clothing for your physical therapy. Weight bearing as tolerated. You have the Aquacel Ag dressing, leave in place for 7 days then remove. If dressing becomes soiled (turns black), remove and use gauze 4x4 dressing and silvasorb ointment and change daily. Keep incision clean and dry. You may start showering on post op day #2. To avoid constipation while taking any narcotic pain medication, take an over the counter stool softener/laxative. Use ice packs as directed, on for 20 minutes at a time throughout the day. This and elevation will help with pain and swelling. Call your physician for fevers above 100.5 or pain not controlled by medication. Your prescriptions are with your discharge information. Some medications were electronically transmitted to your pharmacy of choice. - Problem Maintenance (1) Bladder retention of urine Status: Acute (2) Intertrochanteric fracture of right hip Status: Acute Qualifiers: Encounter type: initial encounter Fracture type: closed Fracture alignment: displaced Qualified Code(s): S72.141A - Displaced intertrochanteric fracture of right femur, initial encounter for closed fracture (3) Dementia Status: Chronic - Follow up Plan Disposition: Xfer SNF Prognosis: Good Rehab Potential: Good I certify that the patient requires SNF services: Yes Overall status at discharge: patient is progressing back to baseline
== END 2017-06-10 10:19 | DRG 482 ==
LOC: ED 08:22 → ICU 13:57 → MEDSUR 06-09 17:08
PROVIDERS: ADMIT Specialist; ATTEND Specialist

== ENCOUNTER 2017-06-27 14:09 | Inpatient (IN) ==
[~2017-06-27 14:09] MED LIST: DEXAMETHASONE 10 MG/ML VIAL IV ONE; HETASTARCH 6% 500 ML BAG IV ONE; KETAMINE 100 MG/ML ML IV ONE; LIDOCAINE HCL/PF 100 MG/5 ML SYRINGE IV ONE; MIDAZOLAM 2 MG/2 ML VIAL IV ONE; ONDANSETRON 4 MG/2 ML VIAL IV ONE; PHENYLEPHRINE 10 MG/ML VIAL IV ONE; PROPOFOL 200 MG/20 ML VIAL IV ONE; TRANEXAMIC ACID 1,000 MG/10 ML VIAL IV ONE; fentaNYL 100 MCG/2 ML VIAL IV ONE
--- NOTE | 2017-06-27 14:37 | Emergency Department Note ---
Lower Extremity Injury HPI - General Chief Complaint: Extremity Injury, Lower Stated Complaint: r hip pain, fall Time Seen by Provider: 06/27/17 14:22 Source: family, EMS Mode of arrival: EMS Limitations: no limitations - History of Present Illness HPI Narrative: 86-year-old female presents with right hip and right knee pain. Onset about an hour prior to arrival. She lives in an intermediate. She tripped and fell. She is not supposed to get up without help and she got up without calling for help. Did not hit her head. No loss of consciousness. No head, neck, or back pain. She is complaining of significant hip pain radiating down her right leg including the right knee and right tib-fib. She did recently have a ariella placed in her femur after falling and breaking her femur about 3 weeks ago. Patient does have mild confusion which daughter is here and states that her baseline. No nausea, vomiting, or diarrhea. Is acting like her normal self according to daughter other than moaning in pain and complaining of pain in daughter states she is very tough and rarely complains of any pain. - Related Data Home Medications Medication Instructions Recorded Confirmed Levothyroxine Sodium [Synthroid] 88 mcg PO ACB 06/07/17 06/07/17 Timolol 0.5% Ophth Drops [Timoptic 1 gtt OU BID 06/07/17 06/07/17 0.5% Ophth Drops] Previous Rx's Medication Instructions Recorded Acetaminophen [Acetaminophen ER] 650 mg PO Q6HP PRN #60 tab 06/10/17 Acetaminophen [Tylenol] 650 mg PO Q6HP PRN #30 tablet 06/10/17 Aspirin [Ecotrin] 325 mg PO BID tab.ec 06/10/17 Docusate Sodium [Colace] 100 mg PO BID capsule 06/10/17 HYDROcodone/ACETAMINOPHEN 1 each PO Q4HP PRN #20 tab 06/10/17 [Hydrocodon-Acetaminophen 5-325] HYDROcodone/APAP 5/325MG [[place] 1 tab PO Q4HP PRN #30 tablet 06/10/17 5/325Mg] LORazepam [Ativan] 0.5 mg PO Q4HP PRN tablet 06/10/17 LORazepam [Ativan] 0.5 mg PO Q4HP PRN #60 tab 06/10/17 Allergies Allergy/AdvReac Type Severity Reaction Status Date / Time penicillin V Allergy Intermediate RASH Verified 06/07/17 14:45 Sulfa (Sulfonamide Allergy Unknown Verified 06/07/17 08:33 Antibiotics) Review of Systems All systems ED: reviewed and negative except as stated. Past Medical History - Past Medical History Medical history: Reports: dementia. Denies: COPD, coronary artery disease Surgical history ED: Reports: other (Ankle fusion, recent fall and fracture of the right femur with ariella placement May 2017) - Social History smoking status: Never smoker Alcohol use: Reports: None Drug use: Reports: none Physical Exam Limitations: no limitations General appearance: alert, in no apparent distress Head: atraumatic, normocephalic, normal inspection Eye: Present: normal appearance. Absent: conjunctival injection ENT: mucous membranes moist Neck: Present: normal inspection, full ROM, trachea midline. Absent: tenderness , lymphadenopathy Chest: Present: normal inspection, symmetric chest wall rise Respiratory: Present: normal lung sounds bilaterally. Absent: respiratory distress, wheezes, accessory muscle use Cardiovascular: Present: regular rate, normal heart sounds Abdominal: Present: soft, normal bowel sounds. Absent: distention, tenderness, guarding, mass Extremities: Present: normal capillary refill. Absent: normal inspection (The right leg from the hip down to the ankle has significant edema and ecchymosis in various states of healing. Tenderness throughout the entire leg. Hard to assess because she is so tender all over. The skin is intact. There is no obvious deformity.) Back: Present: normal inspection. Absent: tenderness, vertebral tenderness Neurological: Present: alert (She is awake, alert, and responding to questions but does get confused at times. She is a extremely poor historian with short- term memory loss. This is her baseline due to dementia.). Absent: motor sensory deficit Psychiatric: Present: normal affect, normal mood Skin: Present: warm, dry, intact, normal color Course Course Narrative: At 1520, consult wound with Dr. Denney, with orthopedics, and he is here to see the patient. Vital Signs Pulse Rate 98 H 06/27/17 14:13 Respiratory Rate 20 06/27/17 14:13 Blood Pressure 176/71 06/27/17 14:13 Pulse Oximetry (%) 100 06/27/17 14:13 Pulse Rate 102 H 06/27/17 14:16 Respiratory Rate 21 06/27/17 14:31 Blood Pressure 176/71 06/27/17 14:16 Pulse Oximetry (%) 96 06/27/17 14:16 Disposition Pt seen by INTERACTIVE MEDIA MARKETING SPECIALIST/PA only: Yes Clinical Impression: Fracture, femur, distal, Fall Condition: Fair Referrals: Vic Dimas MD [Primary Care Provider] -
[2017-06-27] MEDS ORDERED: fentaNYL 100 MCG/2 ML VIAL IV ONE ×3 (15:01→17:03)
--- NOTE | 2017-06-27 15:21 | XRay Report ---
HISTORY: Reason for Exam:right hip pain FINDINGS: There is a subacute comminuted intertrochanteric fracture of the right proximal femur. There are metal rods in the femoral shaft and extending through the femoral neck into the head. Lesser trochanter remains displaced medially and superiorly. The alignment is unchanged from the postoperative x-ray done on 06/07/17. There is no reabsorption of bone around the hardware. No new fracture has developed. The hip joint space is normal. Callus has not yet formed. IMPRESSION: Stable ununited fracture of the proximal right femur Interpreted and Authenticated by: Joo Ma 06/27/17
--- NOTE | 2017-06-27 15:26 | XRay Report ---
HISTORY: Reason for Exam:right femur pain from fall FINDINGS: Patient has a new comminuted fracture in the distal shaft of the femur. The boundary of the diaphyseal metaphyseal regions. This is at the level where the distal end of the mid intramedullary ariella is located. The distal portion of the femur is displaced posteriorly two centimeter. This Fracture was not present at the time of the surgery done on 06/07/17. The comminuted intertrochanteric fracture in the proximal femur remain stable in alignment. IMPRESSION: New comminuted fracture in the distal shaft of the femur Interpreted and Authenticated by: Joo Ma 06/27/17
--- NOTE | 2017-06-27 15:28 | XRay Report ---
HISTORY: Reason for Exam:right leg pain FINDINGS: Fracture in the distal shaft of the femur is present and was described in full detail of the femur x-ray report.. There is also a well aligned old fracture of the lateral malleolus with a metal plate secured to the lateral border of the distal fibula. There is soft tissue swelling anterior to the ankle. No new fracture has developed in the tibia or fibula. IMPRESSION: No acute fracture in the tibia or fibula Interpreted and Authenticated by: Joo Ma 06/27/17
--- NOTE | 2017-06-27 15:30 | XRay Report ---
HISTORY: Reason for Exam: Fell and preop for repair of fractured femur FINDINGS: The lungs are clear. The heart size and pulmonary vasculature are normal. There are couple old healed left lateral rib fractures. No pleural effusion is present and there is no evidence of adenopathy. There is a moderate old wedge compression fracture at T6. This is remain stable from prior exam. IMPRESSION: Old fractures of the thoracic spine and left lateral ribs Interpreted and Authenticated by: Joo Ma 06/27/17
[2017-06-27 16:03] LABS: Basophils # (Auto) 0 K/mcL (0.0-0.3); Basophils % (Auto) 0.3 % (0.0-2.0); Eosinophils # (Auto) 0.5 K/mcL (0.0-0.7); Eosinophils % (Auto) 4.2 % (0.0-7.0); Lymphocytes # (Auto) 0.7 K/mcL (1.5-4.8); Lymphocytes % (Auto) 6.9 % (15.5-49.0); Mean Cell Volume 97.4 fL (80.0-100.0); Mean Corpuscular HGB Conc 33.3 g/dL (31.0-36.0); Mean Corpuscular Hemoglobin 32.4 pg (26.0-34.0); Monocytes # (Auto) 0.5 K/mcL (0.1-0.9); Monocytes % (Auto) 4.6 % (1.0-12.0); Platelet Count 334 K/mcL (140-440); RBC 3.38 M/mcL (4.00-5.20); Red Cell Distribution Width 15.4 % (11.5-14.5)
[2017-06-27 16:23] LABS: ALT/SGPT 10 U/l (0-40); Albumin 3.5 gm/dL (3.2-5.2); Albumin/Globulin Ratio 1.3 (1.0-2.3); Alkaline Phosphatase 267 U/L (39-117); Blood Urea Nitrogen 12 mg/dl (8-23)
[2017-06-27] MEDS ORDERED: fentaNYL 100 MCG/2 ML VIAL IV PRN (17:40)
[2017-06-27] MEDS ORDERED: fentaNYL 100 MCG/2 ML VIAL IV SCH (17:45)
[2017-06-27] MEDS ORDERED: MAGNESIUM SULFATE 2 GM/50 ML BAG IV PRN (19:07)
[2017-06-27] MEDS ORDERED: ONDANSETRON 4 MG/2 ML VIAL IV PRN (19:07)
[2017-06-27] MEDS ORDERED: ACETAMINOPHEN 325 MG TABLET PO PRN (19:07)
[2017-06-27] MEDS: HYDROmorphone 2 MG/ML VIAL IV PRN (19:51)
[2017-06-27] MEDS: 0.9 % SODIUM CHLORIDE 1,000 ML IV SCH (19:52)
--- NOTE | 2017-06-27 20:00 | History and Physical Report ---
DATE OF ADMISSION: 06/27/2017 IDENTIFICATION: Ms. Berry is an elderly lady in her 80s. CHIEF COMPLAINT: Right supracondylar femur fracture which is adjacent to an intramedullary implant. HISTORY: This elderly lady has quite severe dementia. She sustained a fall 3 weeks ago and had an intertrochanteric hip fracture which was successfully treated with an intramedullary implant by Dr. Clinton. She has been residing at [facility] and apparently has had some severe challenges with her dementia. She is very agitated and anxious in the afternoons, wanting to be up and ambulatory and moving about. She sustained a fall and was transported to the hospital where she has radiographs demonstrating a fracture which is in the supracondylar region of the right femur. It is adjacent to the intramedullary implant. She does have pain, but generally pain is controlled when she is immobile. PAST MEDICAL HISTORY: She is fairly healthy. She has a history of hypothyroidism and macular degeneration. PAST SURGICAL HISTORY: Previous distal radius fracture. She has had this hip fracture treated surgically. She is generally healthy except for her dementia. MEDICATIONS: Thyroid supplement. ALLERGIES: NONE. REVIEW OF SYSTEMS: Again, she has generally been healthy except for her dementia which has been quite severe. Balance of 10-point review of systems is negative. She is a difficult historian, however. FAMILY HISTORY: Noncontributory at this point. EXAMINATION: GENERAL: She is awake and alert. She does answer questions, but clearly it was confused. She is resting comfortably, positioned in the bed but any motion of the right lower extremity reproduces pain. EXTREMITIES: She does have some shortening and malrotation and again pain with any motion of this right lower extremity. She is neurovascularly intact bilateral lower extremities. She does have modest lymphedema and some ecchymosis throughout the lower extremity. IMAGING: Radiographs again demonstrate a markedly displaced supracondylar femur fracture. IMPRESSION: Fracture as above. PLAN: I have spent an extensive amount of time discussing with the family the pros and cons of surgical treatment versus nonoperative management. They have been inclined to likely leave this fracture managed nonoperatively, but they certainly can take a period of time to consider how they would like to proceed. I did return to the emergency room and talk additionally when the son presented at the bedside. They will continue their discussion over the night. If we were planning to address this surgically, it would require removal of intramedullary device, placing a shortened device, and then a lateral supracondylar plate. This has been discussed with the family along with the risks, complications and the limitations of any kind of surgical intervention. I will speak with them further in the morning. GDD:td Job ID: [id number] Doc ID: [id number] Gabriel Denney MD
[2017-06-27] MEDS: ACETAMINOPHEN 1,000 MG/100 ML BOTTLE IV PRN (20:02)
[2017-06-27] MEDS: DOCUSATE SODIUM 100 MG CAPSULE PO SCH (20:48)
[2017-06-27] MEDS ORDERED: SENNOSIDES/DOCUSATE SODIUM 1 TAB TABLET PO SCH (21:00)
[2017-06-27] MEDS: 0.9 % SODIUM CHLORIDE 10 ML SYRINGE IV SCH (21:40)
--- NOTE | 2017-06-27 23:08 | Consultation ---
DATE OF CONSULTATION: 06/27/2017 REQUESTING PHYSICIAN: Gabriel Denney MD DATE OF CONSULTATION: 06/27/2017 REASON FOR CONSULTATION: Management of medical issues in this severely demented 86-year-old lady who sustained a fall, resulting in the distal shaft femur fracture. HISTORE OF CHIEF COMPLAINT: Ms. Berry is an 86-year-old elderly lady with profound dementia who is currently at [facility] [place] recovering from recent right hip surgery following a fracture and was discharged on 06/10 to [facility] [place] for postoperative recovery. However, unfortunately the patient sustained another fall today and was brought into [facility] Emergency Room where initial workup was significant for a comminuted fracture in distal shaft of the femur. Subsequently, Orthopedics was consulted and Dr. Denney admitted the patient. However, family at that time were unable to decide whether they would want operative intervention or to keep the patient comfortable. Dr. Denney requested hospitalist service for evaluation of preoperative risk evaluation of the patient, along with management of medical issues until family can arrive at a decision. At the time of evaluation, the patient is in moderate pain; however, appears anxious, without significant agitation. She would open her eyes to commands, but no reasonable conversation could be undertaken. No family members were present. In light of profound dementia, the patient moved to watch bed. Case was discussed with case management and __ while they were communicating with family, including daughter Keena, who will return back after discussions with rest of the family on a decision whether to pursue with surgery or not. PAST MEDICAL HISTORY: On reviewing the patient's past medical history, except for profound dementia and recurrent falls and hypothyroidism, the patient has been fairly healthy. She is currently on aspirin for DVT prophylaxis, post recent hip surgery along with hydrocodone/acetaminophen and Synthroid. She also carries a history of glaucoma. REVIEW OF SYSTEMS: Other than that, a 10-point review of system was performed and negative except the ones discussed above. PAST MEDICAL HISTORY: 1. Glaucoma. 2. Hypothyroidism. 3. Anxiety disorder. 4. Recent right hip fracture, status post repair, currently ongoing therapy at [facility] [place]. CURRENT MEDICATIONS: 1. Timolol both eyes twice daily. 2. Lorazepam 0.5 every 4 hours as needed. 3. Levothyroxine 100 mcg daily. 4. Hydrocodone/acetaminophen 1 tablet every 4 hours as needed. 5. Docusate 100 mg twice daily. 6. Aspirin 325 mg twice daily. 7. Acetaminophen 650 every 6 hours as needed. ALLERGIES: Known to: 1. PENICILLIN. 2. SULFA. FAMILY HISTORY: Not relevant given advanced age. SOCIAL HISTORY: Resides at [facility] [place]. No history of smoking or alcoholism. PHYSICAL EXAMINATION: GENERAL EXAM: The patient is resting comfortably. Nondistressed. BMI 21. Height 5 feet 7 inches. VITAL SIGNS: Blood pressure 157/59, respiratory rate 18, temperature 98.9, pulse 94, saturation 96 percent on room air. HEENT: Oral cavity dry. No ear or nose discharge. Head is normocephalic and atraumatic. NECK: No lymphadenopathy. HEART: S1, S2. ESM grade 1. It is occasionally irregular. CHEST: Clear to auscultation with diminished breath sounds at bases. ABDOMEN: Soft and nontender. LOWER EXTREMITY EXAMINATION: Right lower extremity, currently immobilized. Left lower extremity: No cyanosis or clubbing. No joint swelling. SKIN: No suspicious lesions. PSYCHIATRIC: Resting comfortably, underlying profound dementia. NEUROLOGIC: Higher functions could not be checked. LABS AND IMAGING: UA pending. White count 10.8, hemoglobin 11, sodium 137, potassium 3.8, creatinine 0.9, BUN 12. EKG: Sinus tachycardia. X-ray chest: Old fracture of thoracic spine and left lateral ribs. No acute process. X-ray of tibia-fibula: No acute fracture of tibia or fibula. Femur x-ray: New comminuted fracture of the distal shaft of femur, right side. X-ray pelvis: Stable ununited fracture of proximal right femur. ASSESSMENT AND PLAN: An 86-year-old with profound dementia and a recent right hip surgery, admitted with distal comminuted fracture of the femur. 1. Right femur fracture will be managed by orthopedics. After discussion with family, they agreed to proceed with surgery. Dr. Denney was notified. The patient will be kept nothing by mouth. The rest of the management including postop management/deep vein thrombosis prophylaxis and pain management as per orthopedics, Dr. Denney. 2. Preoperative risk evaluation based on Revised Cardiac Risk Index, [place] [employer] risk stratification. Given advanced age, patient would fall under high risk for intraoperative and immediate postoperative acute coronary event or cerebrovascular accident. At this time, there are no modifiable risk factors and recommend maintaining intraoperative mean arterial pressure (MAP) over 65 to maintain adequate cerebral and coronary perfusion. Surgery-specific and anesthesia-specific risks will be discussed by individual care providers with family prior to surgery. 3. History of glaucoma. Continue Timolol eye drops. 4. History of anxiety disorder. We will continue lorazepam as needed. 5. Hypothyroidism. We will restart her thyroxine after surgery. 6. Pain management will be on IV Dilaudid until patient can be safely transitioned to oral analgesics. 7. CODE STATUS: DO NOT RESUSCITATE. 8. History of profound dementia, currently at baseline. Close monitoring for delirium. PLAN: 1. Restart home medications post-surgery. 2. We will review postop. 3. Keep nothing by mouth after midnight. AA:td Job ID: [id number] Doc ID: [id number] Helio Huerta MD
[2017-06-27 23:46] LABS: Appearance,Urine HAZY; Bacteria,Urine FEW /hpf (0); Bilirubin,Urine NEG (NEG); Color,Urine YELLOW; Glucose,Urine (UA) NEGATIVE (NEG); Leukocyte Esterase,Urine 25 /uL (NEG); Mucus,Urine MANY /hpf (0); Protein,Urine NEG (NEG); Specific Gravity,Urine 1.029 (1.000-1.035); Urine Blood 0.03 mg/dL (<0.03); Urine Hyaline Cast 9 /lpf (0-2); Urine RBC 7 /hpf (0-1); Urine Squamous Epithelial Cell < 1 /hpf (0-4); Urine WBC 104 /hpf (0-4); Urobilinogen,Urine NEG (NEG)
[2017-06-27] MEDS ORDERED: cefTRIAXone 1 GM VIAL IV ONE (23:47)
[2017-06-28] MEDS ORDERED: cefTRIAXone 1 GM VIAL ONE
[2017-06-28] MEDS: ACETAMINOPHEN 1,000 MG/100 ML BOTTLE IV PRN ×2 (05:43→16:50)
[2017-06-28] MEDS: 0.9 % SODIUM CHLORIDE 10 ML SYRINGE IV SCH ×3 (05:47→21:40)
[2017-06-28] MEDS: DOCUSATE SODIUM 100 MG CAPSULE PO SCH ×2 (07:07→20:55)
[2017-06-28 07:11] LABS: Mean Corpuscular HGB Conc 33.2 g/dL (31.0-36.0); Mean Corpuscular Hemoglobin 32.5 pg (26.0-34.0); Platelet Count 277 K/mcL (140-440); RBC 3.02 M/mcL (4.00-5.20); Red Cell Distribution Width 15.4 % (11.5-14.5)
[2017-06-28 08:07] LABS: ALT/SGPT 10 U/l (0-40); Albumin 2.9 gm/dL (3.2-5.2); Albumin/Globulin Ratio 1.1 (1.0-2.3); Alkaline Phosphatase 223 U/L (39-117); Bilirubin,Direct < 0.2 mg/dL (0.0-0.3); Blood Urea Nitrogen 12 mg/dl (8-23); Gamma Glutamyl Transpeptidase 36 U/L (5-36); Uric Acid 5.5 mg/dL (2.5-8.0)
[2017-06-28 08:37] LABS: Eosinophils % (Manual) 2 % (0-7); Lymphocytes % 20 % (15-49); Monocytes % (Manual) 10 % (1-12); Platelet Estimate NORMAL (NORMAL); RBC Morphology NORMAL (NORMAL); Segmented Neutrophils % 68 % (38-78)
[2017-06-28] MEDS ORDERED: MULTIVIT,THER IRON,CA,FA & MIN 1 TABLET PO SCH (09:00)
--- NOTE | 2017-06-28 09:31 | Internal Med Progress Note ---
Medical - PN: Subj Patient information: Note initiated : 06/28/17 at 9:27 am Service Date, if different from initiated Date: [] Patient: Juanis Berry 86 y/o F admitted on 06/27/17 for r hip pain, fall. Chief Complaint: [] Interval history: [id number]-[id number]-old with profound dementia and recent left knee surgery presented while Chelle sustained left femur fracture after traumatic fall. Admitted by surgery. Hospitalist consult for management of medical issues. Patient due for surgery in a.m. No significant underlying past history except for hypothyroidism/glaucoma and dementia. Restart in our CR I [place] [employer] patient would fall under high risk category given advanced age and extremely poor functional status at baseline. 06/28-surgery later today. Patient alert oriented currently nothing by mouth. Multiple family members at bedside. Family aware of risk of surgery. Pain in good control. No overnight events. Pleasantly confused. Mentation at baseline. - Constitutional Vitals: Vital Signs Temp Pulse Resp BP Pulse Ox 98.1 F 99 H 18 151/60 99 06/28/17 04:01 06/28/17 04:01 06/27/17 19:07 06/28/17 04:01 06/28/17 04:01 Period Temp Pulse Resp BP Sys/Patrick Pulse Ox Last 24 Hr 98.1 F-98.9 F 68-116 13-25 88-188/42-117 95-100 Intake and Output 06/27/17 06/28/17 06/28/17 21:59 05:59 13:59 Intake Total 100 / 100 100 / 100 Output Total 350 / 350 Balance 100 / 100 -350 / -350 100 / 100 Weight 135 lb 11.2 oz Intake & Output: Intake & Output 06/27/17 06/28/17 06/28/17 21:59 05:59 13:59 Intake Total 100 / 100 100 / 100 Output Total 350 / 350 Balance 100 / 100 -350 / -350 100 / 100 Weight 135 lb 11.2 oz Intake: IV 100 / 100 100 / 100 Output: Urine Catheter Amount 350 / 350 General appearance: no acute distress Exam: alert but confused No anxiety Nonlabored breathing Medical - PN: Obj Da - Labs CBC & Chem 7: 06/28/17 03:45 06/28/17 03:45 Labs: Abnormal Lab Results 06/28/17 06/28/17 06/27/17 03:45 03:45 22:30 RBC 3.02 L Hgb 9.8 L Hct 29.6 L RDW 15.4 H MPV 6.8 L Gran % Lymph % (Auto) Gran # Lymph # (Auto) Carbon Dioxide 20 L Glucose Calcium 7.9 L Alkaline Phosphatase 223 H Lactate Dehydrogenase 306 H Total Protein 5.6 L Albumin 2.9 L Urine Ketones 5/tr A Urine Occult Blood 0.03 A Ur Leukocyte Esterase 25 A Urine RBC 7 H Urine WBC 104 H Urine Bacteria Few A Hyaline Casts 9 H Urine Mucus Many A 06/27/17 06/27/17 15:26 15:11 RBC 3.38 L Hgb 11.0 L Hct 33.0 L RDW 15.4 H MPV 6.2 L Gran % 84.0 H Lymph % (Auto) 6.9 L Gran # 9.1 H Lymph # (Auto) 0.7 L Carbon Dioxide Glucose 116 H Calcium 8.4 L Alkaline Phosphatase 267 H Lactate Dehydrogenase Total Protein Albumin Urine Ketones Urine Occult Blood Ur Leukocyte Esterase Urine RBC Urine WBC Urine Bacteria Hyaline Casts Urine Mucus Meds: Medications Acetaminophen (Tylenol) 650 mg PO Q4-6HP PRN PRN Reason: PAIN/FEVER > 101 Docusate Sodium (Colace) 100 mg PO BID [facility] Last Admin: 06/28/17 07:07 Dose: Not Given Heparin Sodium (Porcine) (Heparin) 5,000 unit SQ Q12 [facility] Hydromorphone HCl (Dilaudid) 0 mg IV Q4HP PRN PRN Reason: PAIN LEVEL > 6 Last Admin: 06/27/17 19:51 Dose: 0.25 mg Magnesium Sulfate (Magnesium Sulfate) 2 gm in 50 mls @ 50 mls/hr IV UD PRN PRN Reason: MG = or < 1.7 Sodium Chloride (Sodium Chloride 0.9%) 1,000 mls @ 50 mls/hr IV .Q20H [facility] Stop: 06/30/17 07:06 Last Admin: 06/27/17 19:52 Dose: 50 mls/hr Acetaminophen (Ofirmev) 1,000 mg in 100 mls @ 200 mls/hr IV Q6HP PRN PRN Reason: PAIN/FEVER > 101 Last Infusion: 06/28/17 07:24 Dose: Infused Iron Carb/Multivit/Photolithographer/Folic Acid (Multivitamin W/Minerals) 1 tab PO DAILY [facility] Last Admin: 06/28/17 07:07 Dose: Not Given Ondansetron HCl (Zofran) 4 mg IV Q4-6HP PRN PRN Reason: Nausea And Vomiting Senna/Docusate Sodium (Senna Plus Tablet) 1 tab PO HS [facility] Last Admin: 06/27/17 20:48 Dose: Not Given Sodium Chloride (Saline Flush) 10 ml IV Q8 [facility] Last Admin: 06/28/17 05:47 Dose: Not Given Medical - PN: A/P - Time Spent With Patient Total time spent is greater than 50% in coordination of care (as documented) at patient's floor/unit and/or counseling patient: 15 - 24 minutes - Narrative A/P Narrative: * right femur fracture- await surgical repair. Patient nothing by mouth. Pain management on IV opioids * Preoperative risk evaluation-based on RCR I [place] [employer] risk stratification patient is a high risk operative candidate. However there are no modifiable risk factors. Surgery and anesthesia specific risks will be addressed by individual care providers. Family aware of risk and willing to proceed with surgery. * History of glaucoma continue timolol eyedrops * anxiety disorder continue as needed lorazepam * Pain management on as needed opioids * hypothyroidism restart thyroxine postoperatively * Advanced dementia at baseline * DVT prophylaxis will be as per orthopedics. At this time aspirin held * DNR plan * review postop * Continue pre-existing medical condition management as above * physical therapy and possible transfer to SNF in 48 hours * Pain management Medical - PN: Qual - VTE Deep Vein Thrombosis/Pulmonary Embolism Present on Admission: Yes
[2017-06-28] MEDS: HYDROmorphone 2 MG/ML VIAL IV PRN ×3 (10:02→21:38)
[2017-06-28] MEDS ORDERED: 0.9 % SODIUM CHLORIDE 250 ML IV SCH (11:15)
[2017-06-28] MEDS ORDERED: ceFAZolin 1 GM VIAL IV SCH ×2 (11:45→20:00)
[2017-06-28] MEDS ORDERED: GENTAMICIN SULFATE IV ONE (12:15)
[2017-06-28] MEDS ORDERED: SODIUM CHLORIDE 0.9% IV ONE (12:15)
[2017-06-28] MEDS ORDERED: METHOCARBAMOL 1,000 MG/10 ML VIAL IV PRN (13:59)
[2017-06-28] MEDS ORDERED: MEPERIDINE 25 MG/ML SYRINGE IV PRN (13:59)
[2017-06-28] MEDS ORDERED: HYDROmorphone 2 MG/ML VIAL IV PRN (13:59)
[2017-06-28] MEDS ORDERED: METOPROLOL TARTRATE 5 MG/5 ML VIAL IV PRN (13:59)
[2017-06-28] MEDS ORDERED: fentaNYL 100 MCG/2 ML VIAL IV PRN (13:59)
[2017-06-28] MEDS ORDERED: NALOXONE HCL 0.4 MG/ML VIAL IV PRN (13:59)
[2017-06-28] MEDS ORDERED: diphenhydrAMINE 50 MG/ML VIAL IV PRN (13:59)
[2017-06-28] MEDS ORDERED: IPRATROPIUM/ALBUTEROL 3 ML AMPUL.NEB NEB PRN (13:59)
[2017-06-28] MEDS ORDERED: ATROPINE SULFATE 0.4 MG/ML VIAL IV PRN (13:59)
[2017-06-28] MEDS ORDERED: PROMETHAZINE 25 MG/ML VIAL IV PRN (13:59)
[2017-06-28] MEDS ORDERED: ONDANSETRON 4 MG/2 ML VIAL IV PRN ×2 (13:59→17:05)
[2017-06-28] MEDS ORDERED: FLUMAZENIL 0.1 MG/ML ML IV PRN (13:59)
[2017-06-28] MEDS ORDERED: ePHEDrine 50 MG/ML AMPUL IV PRN (13:59)
[2017-06-28] MEDS ORDERED: LACTATED RINGERS 1,000 ML IV SCH (14:00)
[2017-06-28] MEDS ORDERED: TRANEXAMIC ACID 1,000 MG/10 ML VIAL IV ONE (14:21)
[2017-06-28] MEDS ORDERED: FLEETS ADULT ENEMA PR PRN ×2 (14:21→17:05)
[2017-06-28] MEDS ORDERED: MAGNESIUM HYDROXIDE 30 ML ORAL.SUSP PO PRN ×2 (14:21→17:05)
[2017-06-28] MEDS ORDERED: BENZOCAINE/MENTHOL 1 LOZENGE PO PRN ×2 (14:21→17:05)
[2017-06-28] MEDS ORDERED: POLYETHYLENE GLYCOL 3350 17 GM PACKET PO PRN ×2 (14:21→17:05)
[2017-06-28] MEDS ORDERED: BISACODYL 10 MG SUPP.RECT PR PRN ×2 (14:21→17:05)
[2017-06-28] MEDS ORDERED: oxyCODONE/APAP 5/325MG TABLET PO PRN (14:21)
[2017-06-28] MEDS ORDERED: METHOCARBAMOL 750 MG TABLET PO PRN (14:21)
[2017-06-28] MEDS ORDERED: GENTAMICIN SULFATE 800 MG/20 ML VIAL IR ONE (15:19)
[2017-06-28] MEDS: 0.9 % SODIUM CHLORIDE 1,000 ML IV SCH ×4 (16:48→18:01)
--- NOTE | 2017-06-28 17:04 | XRay Report ---
HISTORY: Reason for Exam:2 view of right femur status post repair fractured distal femur FINDINGS: There is a comminuted fracture in the distal shaft of the femur. There is now good alignment following open reduction internal fixation. The displacement and angulation seen preoperatively has been corrected. There is a metal plate secured to the lateral border of the distal femur using cerclage wires proximally and transversely oriented screws extending into the femoral condyles. The long femoral ariella which was seen on the prior exam done on 06/27/17 has been replaced with a shorter ariella. The new ariella does not extend across the fracture line. The intertrochanteric fracture of the right hip remains stable and has not yet healed. IMPRESSION: Good alignment following reduction of the fractured distal femur Interpreted and Authenticated by: Joo Ma 06/28/17
[2017-06-28] MEDS ORDERED: ACETAMINOPHEN 1,000 MG/100 ML BOTTLE IV PRN (17:05)
[2017-06-28] MEDS ORDERED: MAGNESIUM SULFATE 2 GM/50 ML BAG IV PRN (17:05)
[2017-06-28] MEDS ORDERED: ACETAMINOPHEN 325 MG TABLET PO PRN (17:05)
[2017-06-28] MEDS: oxyCODONE/APAP 5/325MG TABLET PO PRN (17:59)
[2017-06-28] MEDS: METHOCARBAMOL 750 MG TABLET PO PRN (20:55)
[2017-06-28] MEDS: SENNOSIDES/DOCUSATE SODIUM 1 TAB TABLET PO SCH (20:55)
[2017-06-28] MEDS: HEPARIN 5,000 UNIT/ML VIAL SQ SCH (20:58)
[2017-06-28] MEDS ORDERED: HEPARIN 5,000 UNIT/ML VIAL SQ SCH (21:00)
[2017-06-28] MEDS ORDERED: SENNOSIDES 1 TABLET PO SCH ×2 (21:00)
[2017-06-28] MEDS ORDERED: DOCUSATE SODIUM 100 MG CAPSULE PO SCH (21:00)
[2017-06-28] MEDS: ceFAZolin 1 GM VIAL IV SCH (21:01)
[2017-06-29 05:56] LABS: Mean Cell Volume 97.7 fL (80.0-100.0); Mean Corpuscular HGB Conc 33.1 g/dL (31.0-36.0); Mean Corpuscular Hemoglobin 32.3 pg (26.0-34.0); Platelet Count 226 K/mcL (140-440); Red Cell Distribution Width 15.3 % (11.5-14.5)
[2017-06-29] MEDS: 0.9 % SODIUM CHLORIDE 10 ML SYRINGE IV SCH ×3 (06:13→21:23)
[2017-06-29] MEDS: ceFAZolin 1 GM VIAL IV SCH (06:13)
[2017-06-29 06:29] LABS: ALT/SGPT 8 U/l (0-40); Albumin 2.4 gm/dL (3.2-5.2); Albumin/Globulin Ratio 1.1 (1.0-2.3); Alkaline Phosphatase 167 U/L (39-117); Bilirubin,Direct < 0.2 mg/dL (0.0-0.3); Blood Urea Nitrogen 11 mg/dl (8-23); Gamma Glutamyl Transpeptidase 34 U/L (5-36); Uric Acid 5.5 mg/dL (2.5-8.0)
--- NOTE | 2017-06-29 07:16 | Operative Note ---
DATE OF OPERATION: 06/28/2017 PREOPERATIVE DIAGNOSIS: Distal tibia supracondylar femur fracture with also proximal intertrochanteric hip fracture. It should be noted that she does have instrumentation in the right hip. POSTOPERATIVE DIAGNOSIS: Distal tibia supracondylar femur fracture with also proximal intertrochanteric hip fracture. It should be noted that she does have instrumentation in the right hip. OPERATION PROPOSED: Removal of the intramedullary device, revision rodding of the intertrochanteric hip fracture and open reduction and internal fixation of distal supracondylar femur fracture. OPERATION PERFORMED: Right hip hemiarthroplasty. OPERATING SURGEON: Gabriel Denney MD SAFETY DEPOSIT CLERK: Jeb May PA-C INDICATIONS: This is a lady who had a hip fracture about 3 weeks ago, was treated with an intramedullary ariella. She has fallen and broken the distal femur in the supracondylar region just distal to the ariella. We have elected to remove the ariella, place a shorter intramedullary device and do a revision rodding with a shorter device and open reduction and internal fixation of the supracondylar femur. OPERATION IN DETAIL: Informed consent was obtained. The patient was taken to the operating room where she was provided with appropriate anesthetic and prophylactic antibiotics. She was carefully positioned. I opened her previous surgical incisions. I removed the interlocking screw distally. I removed the hip bolt laterally. I then removed the intramedullary device. I advanced a reamer down the femur and then selected a 240 intramedullary ariella, 125 degrees. This was advanced into position. I then advanced a hip screw into the femoral head and neck. This was 5 mm longer than the previous screw. I did compress slightly and locked the hip bolt to the ariella. I then turned my attention distally. A lateral incision was made. I exposed the distal femur. I performed the best possible reduction and placed provisional fixation pins in a lateral plate. I then advanced a locking screw across the femur through the distal interlocking hole of the intramedullary device. This locked the plate to the distal femur and gave an excellent fixation point for our plate. I placed several other unicortical screws and placed three cerclage wires around the plate proximally. The distal cluster of this plate was filled with multiple locking screws, stabilizing the fracture. The wounds were irrigated extensively and closed with a resorbable suture in the iliotibial band, 2-0 inverted deep dermal, and lola in the skin. The procedure was tolerated well. No complications. Estimated blood loss was 200 to 300 mL. GDD:adam Job ID: [id number] Doc ID: [id number] Gabriel Denney MD
[2017-06-29 08:17] LABS: Band Neutrophils % 5 % (0-10); Lymphocytes % 7 % (15-49); Monocytes % (Manual) 4 % (1-12); Platelet Estimate NORMAL (NORMAL); RBC Morphology NORMAL (NORMAL); Segmented Neutrophils % 84 % (38-78)
[2017-06-29] MEDS: DOCUSATE SODIUM 100 MG CAPSULE PO SCH ×2 (08:26→21:22)
[2017-06-29] MEDS: HEPARIN 5,000 UNIT/ML VIAL SQ SCH ×2 (08:26→21:23)
[2017-06-29] MEDS: MULTIVIT,THER IRON,CA,FA & MIN 1 TABLET PO SCH (08:26)
[2017-06-29] MEDS: HYDROmorphone 2 MG/ML VIAL IV PRN (09:45)
[2017-06-29] MEDS: cefTRIAXone 1 GM VIAL IV SCH (10:12)
[2017-06-29] MEDS: LORazepam 0.5 MG TABLET PO PRN (11:27)
[2017-06-29] MEDS: 0.9 % SODIUM CHLORIDE 1,000 ML IV SCH (13:36)
[2017-06-29] MEDS: DIVALPROEX 125 MG CAP.SPRINK PO SCH (13:41)
--- NOTE | 2017-06-29 15:58 | Orthopedic Progress Note ---
Subjective Patient information: Note initiated : 06/29/17 at 3:55 pm Service Date, if different from initiated Date: [] Patient: Juanis Berry 86 y/o F admitted on 06/27/17 for Right Hip Pain, Fall/ Right Femur Fracture. Chief Complaint: [S/P ORIF of right proximal and distal femur fx's] Patient has no complaints though she is slightly confused. Levar any SOA, calf tenderness, or lower ext weakness. Objective Vital signs: Vital Signs Temp Pulse Pulse Resp BP BP Pulse Ox 06/29/17 12:00 97.3 F 114 H 16 116/52 96 06/29/17 08:10 105 H 95 06/29/17 08:02 97.1 F 105 H 16 121/51 95 06/29/17 04:00 98.3 F 104 H 22 150/71 95 06/29/17 02:15 110 H 18 136/61 94 06/28/17 23:00 115 H 91 06/28/17 20:00 122 H 90 06/28/17 19:15 97.7 F 119 H 24 H 114/53 91 06/28/17 18:15 119 H 139/60 96 06/28/17 17:47 99.4 F H 120 H 14 136/84 96 06/28/17 17:40 16 140/66 94 06/28/17 17:25 119 H 157/75 97 06/28/17 17:05 119 H 16 155/69 94 06/28/17 17:00 96 06/28/17 16:50 119 H 16 142/58 95 06/28/17 16:35 115 H 16 146/66 92 06/28/17 16:02 98.4 F 109 H 17 149/68 100 Intake and Output 06/29/17 06/29/17 06/29/17 05:59 13:59 21:59 Intake Total 500 / 500 Output Total 1100 / 1100 650 / 650 Balance -600 / -600 -650 / -650 Intake: IV 100 / 100 Oral 400 / 400 Output: Urine Catheter Amount 1100 / 1100 650 / 650 Intake & Output: Intake & Output 06/29/17 06/29/17 06/29/17 05:59 13:59 21:59 Intake Total 500 / 500 Output Total 1100 / 1100 650 / 650 Balance -600 / -600 -650 / -650 Intake: IV 100 / 100 Oral 400 / 400 Output: Urine Catheter Amount 1100 / 1100 650 / 650 Incision: Yes healing, Yes clean and dry Incision clean and dry: Yes Dressing: Yes dry, Yes intact Weight bearing status: non Neurological exam IM: Yes alert, Yes motor sensory intact, Yes neurovascular intact Extremities exam IM: Yes calf tenderness (Negative), Yes Anthony's sign (Negative) - Labs CBC & BMP: 06/29/17 04:13 06/29/17 04:13 Labs: Orthopedic Labs 06/28/17 07:09 PT 14.2 INR 1.1 06/29/17 06/28/17 06/27/17 04:13 03:45 15:26 Hgb 8.1 L 9.8 L 11.0 L Hct 24.4 L 29.6 L 33.0 L Assessment and Plan (1) Fracture, femur, distal Patient is to remain NWB on RLE. Dressing changes as needed. Aqucel prior to discharge. May be discharged per hospitalist. Status: Acute
--- NOTE | 2017-06-29 18:43 | Internal Med Progress Note ---
Medical - PN: Subj Patient information: Note initiated : 06/29/17 at 6:41 pm Service Date, if different from initiated Date: [] Patient: Juanis Berry 86 y/o F admitted on 06/27/17 for Right Hip Pain, Fall/ Right Femur Fracture. Chief Complaint: f/u femur fx Interval history: 06/2777-86-ahyr-old with profound dementia and recent left knee surgery presented while Chelle sustained left femur fracture after traumatic fall. Admitted by surgery. Hospitalist consult for management of medical issues. Patient due for surgery in a.m. No significant underlying past history except for hypothyroidism/glaucoma and dementia. Restart in our CR I [place] [employer] patient would fall under high risk category given advanced age and extremely poor functional status at baseline. 06/28-surgery later today. Patient alert oriented currently nothing by mouth. Multiple family members at bedside. Family aware of risk of surgery. Pain in good control. No overnight events. Pleasantly confused. Mentation at baseline. 06/29-did well during surgery and postoperatively. Today quite agitated, pulling a Bourne catheter. Bourne discontinued, subsequently fluid saline locked, patient became more calm. When I see her she is complaining of some pain in the leg, but otherwise disoriented and calm. - Constitutional Vitals: Vital Signs Temp Pulse Resp BP Pulse Ox 98.9 F 114 H 16 115/69 94 06/29/17 16:00 06/29/17 16:00 06/29/17 16:00 06/29/17 16:00 06/29/17 16:00 Period Temp Pulse Resp BP Sys/Patrick Pulse Ox Last 24 Hr 97.1 F-98.9 F 104-122 16-24 114-150/51-71 90-96 Intake and Output 06/29/17 06/29/17 06/29/17 05:59 13:59 21:59 Intake Total 500 / 500 120 / 120 Output Total 1100 / 1100 650 / 650 Balance -600 / -600 -650 / -650 120 / 120 Intake & Output: Intake & Output 06/29/17 06/29/17 06/29/17 05:59 13:59 21:59 Intake Total 500 / 500 120 / 120 Output Total 1100 / 1100 650 / 650 Balance -600 / -600 -650 / -650 120 / 120 Intake: IV 100 / 100 Oral 400 / 400 120 / 120 Output: Urine Catheter Amount 1100 / 1100 650 / 650 General appearance: no acute distress - Respiratory Respiratory exam: Present: normal respiratory exam. Absent: accessory muscle use - Cardiovascular Cardiovascular exam: Present: normal rate and rhythm. Absent: gallop - GI/Abdominal GI/Abdominal exam: Present: normal bowel sounds, soft. Absent: tenderness - Extremities Exam Extremities exam: Present: neurovascular intact (right leg in knee immobilizer, neurovascularly intact) - Neurological Exam Neurological exam: Present: alert Additional comments: oriented to self Medical - PN: Obj Da - Labs CBC & Chem 7: 06/29/17 04:13 06/29/17 04:13 Labs: Abnormal Lab Results 06/29/17 06/29/17 06/28/17 04:13 04:13 03:45 RBC 2.50 L Hgb 8.1 L Hct 24.4 L RDW 15.3 H MPV 6.9 L Gran % Lymph % (Auto) Gran # Lymph # (Auto) Seg Neutrophils % 84 H Lymphocytes % 7 L Carbon Dioxide 21 L 20 L Glucose 118 H Calcium 7.4 L 7.9 L Alkaline Phosphatase 167 H 223 H Lactate Dehydrogenase 306 H Total Protein 4.5 L 5.6 L Albumin 2.4 L 2.9 L Globulin 2.1 L Urine Ketones Urine Occult Blood Ur Leukocyte Esterase Urine RBC Urine WBC Urine Bacteria Hyaline Casts Urine Mucus 06/28/17 06/27/17 06/27/17 03:45 22:30 15:26 RBC 3.02 L 3.38 L Hgb 9.8 L 11.0 L Hct 29.6 L 33.0 L RDW 15.4 H 15.4 H MPV 6.8 L 6.2 L Gran % 84.0 H Lymph % (Auto) 6.9 L Gran # 9.1 H Lymph # (Auto) 0.7 L Seg Neutrophils % Lymphocytes % Carbon Dioxide Glucose Calcium Alkaline Phosphatase Lactate Dehydrogenase Total Protein Albumin Globulin Urine Ketones 5/tr A Urine Occult Blood 0.03 A Ur Leukocyte Esterase 25 A Urine RBC 7 H Urine WBC 104 H Urine Bacteria Few A Hyaline Casts 9 H Urine Mucus Many A 06/27/17 15:11 RBC Hgb Hct RDW MPV Gran % Lymph % (Auto) Gran # Lymph # (Auto) Seg Neutrophils % Lymphocytes % Carbon Dioxide Glucose 116 H Calcium 8.4 L Alkaline Phosphatase 267 H Lactate Dehydrogenase Total Protein Albumin Globulin Urine Ketones Urine Occult Blood Ur Leukocyte Esterase Urine RBC Urine WBC Urine Bacteria Hyaline Casts Urine Mucus Meds: Medications Acetaminophen (Tylenol) 650 mg PO Q4-6HP PRN PRN Reason: PAIN/FEVER > 101 Bisacodyl (Dulcolax) 10 mg HI Q2-3DAYS PRN PRN Reason: Constipation Ceftriaxone Sodium (Rocephin) 1 gm IV Q24H [facility] Last Admin: 06/29/17 10:12 Dose: 1 gm Divalproex Sodium (Depakote Sprinkles) 125 mg PO BID [facility] Last Admin: 06/29/17 13:41 Dose: 125 mg Docusate Sodium (Colace) 100 mg PO BID [facility] Last Admin: 06/29/17 08:26 Dose: 100 mg Heparin Sodium (Porcine) (Heparin) 5,000 unit SQ Q12 [facility] Last Admin: 06/29/17 08:26 Dose: 5,000 unit Hydromorphone HCl (Dilaudid) 0 mg IV Q4HP PRN PRN Reason: PAIN LEVEL > 6 Last Admin: 06/29/17 09:45 Dose: 0.5 mg Magnesium Sulfate (Magnesium Sulfate) 2 gm in 50 mls @ 50 mls/hr IV UD PRN PRN Reason: MG = or < 1.7 Acetaminophen (Ofirmev) 1,000 mg in 100 mls @ 200 mls/hr IV Q6HP PRN PRN Reason: PAIN/FEVER > 101 Last Infusion: 06/29/17 04:49 Dose: Infused Iron Carb/Multivit/[place]/Folic Acid (Multivitamin W/Minerals) 1 tab PO DAILY [facility] Last Admin: 06/29/17 08:26 Dose: 1 tab Levothyroxine Sodium (Synthroid) 100 mcg PO QAMAC [facility] Lorazepam (Ativan) 0.5 mg PO Q4HP PRN PRN Reason: ANXIETY/SEDATION Last Admin: 06/29/17 11:27 Dose: 0.5 mg Magnesium Hydroxide (Milk Of Magnesia) 30 ml PO BIDP PRN PRN Reason: Constipation Methocarbamol (Robaxin) 750 mg PO Q6HP PRN PRN Reason: Muscle Spasm Last Admin: 06/28/17 20:55 Dose: 750 mg Ondansetron HCl (Zofran) 4 mg IV Q4-6HP PRN PRN Reason: Nausea And Vomiting Oxycodone/Acetaminophen (Percocet 5-325 Mg) 0 tab PO Q4HP PRN PRN Reason: PAIN LEVEL 3-6 Last Admin: 06/28/17 17:59 Dose: 2 tab Polyethylene Glycol (Miralax) 17 gm PO DAILYP PRN PRN Reason: Constipation Senna/Docusate Sodium (Senna Plus Tablet) 1 tab PO HS [facility] Last Admin: 06/28/17 20:55 Dose: 1 tab Sodium Biphosphate/Sodium Phosphate (Fleets Adult) 1 dose HI Q3-4DAYS PRN PRN Reason: Constipation Sodium Chloride (Saline Flush) 10 ml IV Q8 [facility] Last Admin: 06/29/17 13:35 Dose: Not Given Throat Lozenges (Cepacol) 1 lozenge PO PRN PRN PRN Reason: Sore Throat Timolol Maleate (Timoptic 0.5% Ophth Drops) 1 gtt OU BID [facility] Medical - PN: A/P - Time Spent With Patient Total time spent is greater than 50% in coordination of care (as documented) at patient's floor/unit and/or counseling patient: 25 - 35 minutes - Narrative A/P Narrative: 86-year-old female with right supracondylar femur fracture, Underlying dementia. Femur fracture. Postop day #1 status post ORIF. Plan: Nonweightbearing, pain control, discharge planning likely stable for skilled facility when available. Dementia. Was disoriented and agitated earlier, improved after Bourne and IV fluids were discontinued. Did not seem to respond to her home Ativan dose. Plan: Continue supportive care, trial of Depakote for mood control. Hypothyroidism. Plan: Continue levothyroxine Glaucoma. Plan: Resume atenolol eyedrops. Medical - PN: Qual - VTE Deep Vein Thrombosis/Pulmonary Embolism Present on Admission: Yes
[2017-06-29] MEDS: SENNOSIDES/DOCUSATE SODIUM 1 TAB TABLET PO SCH (21:22)
[2017-06-29] MEDS: oxyCODONE/APAP 5/325MG TABLET PO PRN (21:22)
[2017-06-29] MEDS: TIMOLOL 0.5% OPHTH DROPS BOTTLE 5ML OU SCH (22:40)
[2017-06-30] MEDS: DIVALPROEX 125 MG CAP.SPRINK PO SCH (00:47)
[2017-06-30] MEDS: oxyCODONE/APAP 5/325MG TABLET PO PRN ×3 (01:29→18:43)
[2017-06-30] MEDS: 0.9 % SODIUM CHLORIDE 10 ML SYRINGE IV SCH ×3 (04:24→20:44)
--- NOTE | 2017-06-30 07:06 | Orthopedic Progress Note ---
Subjective Patient information: Note initiated : 06/30/17 at 7:03 am Service Date, if different from initiated Date: [] Patient: Juanis Berry 86 y/o F admitted on 06/27/17 for Right Hip Pain, Fall/ Right Femur Fracture. Chief Complaint: [] no new ortho issues Objective Vital signs: Vital Signs Temp Pulse Pulse Pulse Resp BP BP 06/30/17 06:45 99 F 16 102/62 06/30/17 04:47 110/52 06/30/17 04:00 98.8 F 91 H 26 H 95/41 06/29/17 23:29 97.7 F 109 H 18 152/52 06/29/17 20:00 97.4 F 118 H 118 H 18 108/41 06/29/17 16:00 98.9 F 114 H 16 115/69 06/29/17 12:00 97.3 F 114 H 16 116/52 06/29/17 08:10 105 H 06/29/17 08:02 97.1 F 105 H 16 121/51 Pulse Ox 06/30/17 06:45 93 06/30/17 04:47 06/30/17 04:00 90 06/29/17 23:29 90 06/29/17 20:00 93 06/29/17 16:00 94 06/29/17 12:00 96 06/29/17 08:10 95 06/29/17 08:02 95 Intake and Output 06/29/17 06/30/17 06/30/17 21:59 05:59 13:59 Intake Total 120 / 120 600 / 600 Balance 120 / 120 600 / 600 Intake: Oral 120 / 120 600 / 600 Other: Weight 137 lb 8 oz Intake & Output: Intake & Output 06/29/17 06/30/17 06/30/17 21:59 05:59 13:59 Intake Total 120 / 120 600 / 600 Balance 120 / 120 600 / 600 Weight 137 lb 8 oz Intake: Oral 120 / 120 600 / 600 Dressing: Yes clean, Yes dry Weight bearing status: non Neurological exam IM: Yes neurovascular intact - Labs CBC & BMP: 06/29/17 04:13 06/29/17 04:13 Labs: Orthopedic Labs 06/28/17 07:09 PT 14.2 INR 1.1 06/30/17 06/29/17 06/28/17 05:13 04:13 03:45 Hgb Pending 8.1 L 9.8 L Hct Pending 24.4 L 29.6 L 06/27/17 15:26 Hgb 11.0 L Hct 33.0 L Assessment and Plan (1) Supracondylar fracture of femur Status: Acute Qualifiers: Encounter type: subsequent encounter Fracture type: closed (2) Supracondylar fracture of femur Status: Acute Comment: mobilize, dc planning
[2017-06-30 07:15] LABS: Mean Cell Volume 98.2 fL (80.0-100.0); Mean Corpuscular Hemoglobin 32.4 pg (26.0-34.0); Platelet Count 231 K/mcL (140-440); RBC 2.32 M/mcL (4.00-5.20); Red Cell Distribution Width 16.4 % (11.5-14.5)
[2017-06-30] MEDS: LEVOTHYROXINE 100 MCG TABLET PO SCH (07:23)
[2017-06-30 08:04] LABS: ALT/SGPT 7 U/l (0-40); Albumin 2.3 gm/dL (3.2-5.2); Alkaline Phosphatase 152 U/L (39-117); Bilirubin,Direct < 0.2 mg/dL (0.0-0.3); Blood Urea Nitrogen 14 mg/dl (8-23); Gamma Glutamyl Transpeptidase 40 U/L (5-36); Uric Acid 5.5 mg/dL (2.5-8.0)
[2017-06-30] MEDS: cefTRIAXone 1 GM VIAL IV SCH (08:12)
[2017-06-30] MEDS: TIMOLOL 0.5% OPHTH DROPS BOTTLE 5ML OU SCH ×2 (08:37→20:44)
[2017-06-30] MEDS: HEPARIN 5,000 UNIT/ML VIAL SQ SCH ×2 (08:38→20:43)
[2017-06-30] MEDS: MULTIVIT,THER IRON,CA,FA & MIN 1 TABLET PO SCH (08:39)
[2017-06-30] MEDS: DOCUSATE SODIUM 100 MG CAPSULE PO SCH ×2 (08:39→20:43)
[2017-06-30 08:47] LABS: Anisocytosis 1+ (NONE SEEN); Band Neutrophils % 1 % (0-10); Lymphocytes % 12 % (15-49); Monocytes % (Manual) 4 % (1-12); Platelet Estimate NORMAL (NORMAL); RBC Morphology ABNORM (NORMAL); Segmented Neutrophils % 83 % (38-78)
[2017-06-30] MEDS ORDERED: 0.9 % SODIUM CHLORIDE 250 ML IV SCH (09:00)
--- NOTE | 2017-06-30 13:42 | Discharge Summary ---
Medical - DS: Prov Patient information: Note initiated : 06/30/17 at 1:39 pm Service Date, if different from initiated Date: [] Patient: Juanis Berry 86 y/o F admitted on 06/27/17 for Right Hip Pain, Fall/ Right Femur Fracture. Date of admission: 06/27/17 19:06 Discharge date: 06/30/17 Primary care physician: Vic Dimas Admitting clinician: Helio Huerta Consults: 06/27/17 17:29 Consult to Physician [CONS] Stat Comment: Consulting Provider: Helio Huerta Reason For Exam: Physician to Consult 06/27/17 17:30 Consult to Physician [CONS] Stat Comment: Consulting Provider: Gabriel Denney Reason For Exam: Physician to Consult 06/28/17 09:21 Consult to Physician [CONS] Routine Comment: Consulting Provider: [facility] Reason For Exam: Physician to Consult Discharging clinician: Kaci Paz Medical - DS: Meds - Discharge Medications Prescriptions: Hydrocodone/APAP 7.5/325Mg [[place] 7.5/325Mg] 1 - 2 tab PO Q4HP PRN #50 tab PRN Reason: Pain Active and Home Medications: Home Medications Timolol 0.5% Ophth Drops [Timoptic 0.5% Ophth Drops] 1 gtt OU BID 06/07/17 [ History Confirmed 06/27/17 Last Taken 06/27/17 08:00] Acetaminophen [Tylenol] 650 mg PO Q6HP PRN #30 tablet 06/10/17 [Rx Confirmed Last Taken 06/27/17 06:00] Aspirin [Ecotrin] 325 mg PO BID tab.ec 06/10/17 [Rx Confirmed 06/27/17 Last Taken 06/27/17 08:00] Docusate Sodium [Colace] 100 mg PO BID capsule 06/10/17 [Rx Confirmed 06/27/17 Last Taken 06/27/17 08:00] LORazepam [Ativan] 0.5 mg PO Q4HP PRN tablet 06/10/17 [Rx Confirmed 06/27/17 Last Taken 06/27/17 12:00] HYDROcodone/ACETAMINOPHEN [Hydrocodon-Acetaminophen 5-325] 1 each PO Q4HP PRN [History Confirmed 06/27/17 Last Taken 06/25/17 06:00] Levothyroxine [Synthroid] 100 mcg PO DAILY 06/27/17 [History Confirmed 06/27/17 Last Taken 06/27/17 06:00] Hydrocodone/APAP 7.5/325Mg [[place] 7.5/325Mg] 1 - 2 tab PO Q4HP PRN #50 tab 06/29 [Rx Last Taken Unknown] Medical - DS: Hosp Hospital course: Mr. Berry is a 86 year old F - Time Spent with Patient Total time spent providing and/or coordinating discharge services: Medical - DS: Exam - Constitutional Vitals: Vital Signs Temp Pulse Pulse Pulse Resp BP BP 06/30/17 12:48 98.8 F 93 H 20 129/69 06/30/17 11:28 98.0 F 95 H 24 H 131/65 06/30/17 10:34 97.8 F 92 H 20 122/61 06/30/17 10:26 98.2 F 106 H 20 108/69 06/30/17 06:45 99 F 16 102/62 06/30/17 04:47 110/52 06/30/17 04:00 98.8 F 91 H 26 H 95/41 06/29/17 23:29 97.7 F 109 H 18 152/52 06/29/17 20:00 97.4 F 118 H 118 H 18 108/41 06/29/17 16:00 98.9 F 114 H 16 115/69 Pulse Ox 06/30/17 12:48 95 06/30/17 11:28 94 06/30/17 10:34 95 06/30/17 10:26 94 06/30/17 06:45 93 06/30/17 04:47 06/30/17 04:00 90 06/29/17 23:29 90 06/29/17 20:00 93 06/29/17 16:00 94 Intake and Output 06/29/17 06/30/17 06/30/17 21:59 05:59 13:59 Intake Total 120 / 120 600 / 600 Output Total 600 / 600 Balance 120 / 120 600 / 600 -600 / -600 Intake: Oral 120 / 120 600 / 600 Output: Void Amount 600 / 600 Uretheral (Bourne) 600 / 600 Other: Weight 137 lb 8 oz Medical - DS: Data Labs on day of discharge: Labs from last 24 hours 06/30/17 06/30/17 05:13 05:13 WBC 8.6 RBC 2.32 L Hgb 7.5 L Hct 22.8 L MCV 98.2 MCH 32.4 MCHC 33.0 RDW 16.4 H Plt Count 231 MPV 7.1 L Total Counted 100 Seg Neutrophils % 83 H Band Neutrophils % 1 Lymphocytes % 12 L Monocytes % (Manual) 4 Platelet Estimate Normal RBC Morphology Abnorm A Anisocytosis 1+ A Sodium 138 Potassium 4.1 Chloride 105 Carbon Dioxide 26 Anion Gap 7.0 L BUN 14 Creatinine 1.0 GFR Calculation 50 Glucose 106 H Uric Acid 5.5 Calcium 7.5 L Phosphorus 2.7 Magnesium 2.3 Total Bilirubin 0.4 Direct Bilirubin < 0.2 GGT 40 H AST 22 ALT 7 Alkaline Phosphatase 152 H Lactate Dehydrogenase 242 Total Protein 4.6 L Albumin 2.3 L Globulin 2.3 Albumin/Globulin Ratio 1.0 Triglycerides 105 Preliminary micro results at discharge 06/28/17 13:00 Anaerobic Culture - Preliminary Hip - Right Wound Culture - Preliminary Staphylococcus aureus Medical - DS: A/P - Patient/Caregiver Discharge Instructions Prescriptions: Hydrocodone/APAP 7.5/325Mg [[place] 7.5/325Mg] 1 - 2 tab PO Q4HP PRN #50 tab PRN Reason: Pain - Follow up Plan Follow up with: Vic Dimas MD [Primary Care Provider] - Prognosis: Fair Medical - DS: Qual - VTE Deep Vein Thrombosis/Pulmonary Embolism Present on Admission: Yes
[2017-06-30] MEDS: SENNOSIDES/DOCUSATE SODIUM 1 TAB TABLET PO SCH (20:43)
--- NOTE | 2017-06-30 20:56 | Internal Med Progress Note ---
Medical - PN: Subj Patient information: Note initiated : 06/30/17 at 8:54 pm Service Date, if different from initiated Date: [] Patient: Juanis Berry 86 y/o F admitted on 06/27/17 for Right Hip Pain, Fall/ Right Femur Fracture. Chief Complaint: follow-up femur fracture Interval history: 06/[id number]-old with profound dementia and recent left knee surgery presented while [place] sustained left femur fracture after traumatic fall. Admitted by surgery. Hospitalist consult for management of medical issues. Patient due for surgery in a.m. No significant underlying past history except for hypothyroidism/glaucoma and dementia. Restart in our CR I [employer] patient would fall under high risk category given advanced age and extremely poor functional status at baseline. 06/28-surgery later today. Patient alert oriented currently nothing by mouth. Multiple family members at bedside. Family aware of risk of surgery. Pain in good control. No overnight events. Pleasantly confused. Mentation at baseline. 06/29-did well during surgery and postoperatively. Today quite agitated, pulling a Bourne catheter. Bourne discontinued, subsequently fluid saline locked, patient became more calm. When I see her she is complaining of some pain in the leg, but otherwise disoriented and calm. 06/30-Patient seen in early afternoon. Patient remains confused but directable. Wants to be up in the chair most of the time. Has not voided after Bourne catheter was taken out, required in and out catheterization for significant retention. Given her agitation with Bourne catheter yesterday, will not resume catheter but follow and use straight catheter as needed. Patient was to go to skilled facility today, however final check of cultures obtained intraoperatively reveals staph aureus growing from a seroma that was overlying hardware. The hardware had been removed. I discussed with Dr. Denney, given staph aureus is the pathogen, this likely represents infection and the patient will need to have final sensitivities and appropriate antibiotics prior to discharge. Her discharge was canceled. - Constitutional Vitals: Vital Signs Temp Pulse Resp BP Pulse Ox 97.6 F 97 H 15 109/67 92 06/30/17 19:37 06/30/17 19:37 06/30/17 19:37 06/30/17 19:37 06/30/17 19:37 Period Temp Pulse Resp BP Sys/Patrick Pulse Ox Last 24 Hr 97.6 F-99 F 91-109 15-26 95-152/41-72 90-96 Intake and Output 06/30/17 06/30/17 06/30/17 05:59 13:59 21:59 Intake Total 600 / 600 500 / 500 Output Total 600 / 600 Balance 600 / 600 -600 / -600 500 / 500 Intake & Output: Intake & Output 06/30/17 06/30/17 06/30/17 05:59 13:59 21:59 Intake Total 600 / 600 500 / 500 Output Total 600 / 600 Balance 600 / 600 -600 / -600 500 / 500 Intake: Oral 600 / 600 500 / 500 Output: Void Amount 600 / 600 Uretheral (Bourne) 600 / 600 Other: # Voids 0 Exam: General: Sitting in chair in no distress Chest: Clear, no rales Cardiovascular: Regular rate and rhythm, no edema Abdomen: Soft, active bowel sounds Musculoskeletal: Right leg and knee immobilizer, neurovascularly intact Neuro: Alert, oriented to self only. Medical - PN: Obj Da - Labs CBC & Chem 7: 06/30/17 05:13 06/30/17 05:13 Labs: Abnormal Lab Results 06/30/17 06/30/17 06/29/17 05:13 05:13 04:13 RBC 2.32 L Hgb 7.5 L Hct 22.8 L RDW 16.4 H MPV 7.1 L Seg Neutrophils % 83 H Lymphocytes % 12 L RBC Morphology Abnorm A Anisocytosis 1+ A Carbon Dioxide 21 L Anion Gap 7.0 L Glucose 106 H 118 H Calcium 7.5 L 7.4 L GGT 40 H Alkaline Phosphatase 152 H 167 H Lactate Dehydrogenase Total Protein 4.6 L 4.5 L Albumin 2.3 L 2.4 L Globulin 2.1 L Urine Ketones Urine Occult Blood Ur Leukocyte Esterase Urine RBC Urine WBC Urine Bacteria Hyaline Casts Urine Mucus 06/29/17 06/28/17 06/28/17 04:13 03:45 03:45 RBC 2.50 L 3.02 L Hgb 8.1 L 9.8 L Hct 24.4 L 29.6 L RDW 15.3 H 15.4 H MPV 6.9 L 6.8 L Seg Neutrophils % 84 H Lymphocytes % 7 L RBC Morphology Anisocytosis Carbon Dioxide 20 L Anion Gap Glucose Calcium 7.9 L GGT Alkaline Phosphatase 223 H Lactate Dehydrogenase 306 H Total Protein 5.6 L Albumin 2.9 L Globulin Urine Ketones Urine Occult Blood Ur Leukocyte Esterase Urine RBC Urine WBC Urine Bacteria Hyaline Casts Urine Mucus 06/27/17 22:30 RBC Hgb Hct RDW MPV Seg Neutrophils % Lymphocytes % RBC Morphology Anisocytosis Carbon Dioxide Anion Gap Glucose Calcium GGT Alkaline Phosphatase Lactate Dehydrogenase Total Protein Albumin Globulin Urine Ketones 5/tr A Urine Occult Blood 0.03 A Ur Leukocyte Esterase 25 A Urine RBC 7 H Urine WBC 104 H Urine Bacteria Few A Hyaline Casts 9 H Urine Mucus Many A Microbiology 06/28/17 13:00 Gram Stain - Final Hip - Right Anaerobic Culture - Preliminary Gram Stain - Final Wound Culture - Preliminary Staphylococcus aureus Meds: Medications Acetaminophen (Tylenol) 650 mg PO Q4-6HP PRN PRN Reason: PAIN/FEVER > 101 Bisacodyl (Dulcolax) 10 mg NE Q2-3DAYS PRN PRN Reason: Constipation Ceftriaxone Sodium (Rocephin) 1 gm IV Q24H [facility] Last Admin: 06/30/17 08:12 Dose: 1 gm Docusate Sodium (Colace) 100 mg PO BID [facility] Last Admin: 06/30/17 20:43 Dose: 100 mg Heparin Sodium (Porcine) (Heparin) 5,000 unit SQ Q12 [facility] Last Admin: 06/30/17 20:43 Dose: 5,000 unit Hydromorphone HCl (Dilaudid) 0 mg IV Q4HP PRN PRN Reason: PAIN LEVEL > 6 Last Admin: 06/29/17 09:45 Dose: 0.5 mg Magnesium Sulfate (Magnesium Sulfate) 2 gm in 50 mls @ 50 mls/hr IV UD PRN PRN Reason: MG = or < 1.7 Acetaminophen (Ofirmev) 1,000 mg in 100 mls @ 200 mls/hr IV Q6HP PRN PRN Reason: PAIN/FEVER > 101 Last Infusion: 06/29/17 04:49 Dose: Infused Sodium Chloride (Sodium Chloride 0.9%) 250 mls @ 20 mls/hr IV .[id number] [facility] Stop: 06/30/17 21:29 Last Admin: 06/30/17 10:57 Dose: 20 mls/hr Iron Carb/Multivit/[place]/Folic Acid (Multivitamin W/Minerals) 1 tab PO DAILY [facility] Last Admin: 06/30/17 08:39 Dose: 1 tab Levothyroxine Sodium (Synthroid) 100 mcg PO QAMAC [facility] Last Admin: 06/30/17 07:23 Dose: 100 mcg Lorazepam (Ativan) 0.5 mg PO Q4HP PRN PRN Reason: ANXIETY/SEDATION Last Admin: 06/29/17 11:27 Dose: 0.5 mg Magnesium Hydroxide (Milk Of Magnesia) 30 ml PO BIDP PRN PRN Reason: Constipation Methocarbamol (Robaxin) 750 mg PO Q6HP PRN PRN Reason: Muscle Spasm Last Admin: 06/28/17 20:55 Dose: 750 mg Ondansetron HCl (Zofran) 4 mg IV Q4-6HP PRN PRN Reason: Nausea And Vomiting Oxycodone/Acetaminophen (Percocet 5-325 Mg) 0 tab PO Q4HP PRN PRN Reason: PAIN LEVEL 3-6 Last Admin: 06/30/17 18:43 Dose: 2 tab Polyethylene Glycol (Miralax) 17 gm PO DAILYP PRN PRN Reason: Constipation Senna/Docusate Sodium (Senna Plus Tablet) 1 tab PO HS [facility] Last Admin: 06/30/17 20:43 Dose: 1 tab Sodium Biphosphate/Sodium Phosphate (Fleets Adult) 1 dose NE Q3-4DAYS PRN PRN Reason: Constipation Sodium Chloride (Saline Flush) 10 ml IV Q8 [facility] Last Admin: 06/30/17 20:44 Dose: 10 ml Throat Lozenges (Cepacol) 1 lozenge PO PRN PRN PRN Reason: Sore Throat Timolol Maleate (Timoptic 0.5% Ophth Drops) 1 gtt OU BID [facility] Last Admin: 06/30/17 20:44 Dose: 1 drop Medical - PN: A/P - Time Spent With Patient Total time spent is greater than 50% in coordination of care (as documented) at patient's floor/unit and/or counseling patient: Greater than 35 minutes - Narrative A/P Narrative: 86-year-old female with right supracondylar femur fracture, Underlying dementia. Femur fracture. Postop day #2 status post ORIF. Intraoperative culture of seroma now positive for staph aureus Plan: Nonweightbearing, pain control. Follow-up final sensitivities and will plan for 2 weeks of IV antibiotics. Urinary tract infection. Escherichia coli sensitive to cephalosporins and culture. Plan: Continue ceftriaxone, switched to orals upon discharge. Dementia. Was disoriented and agitated earlier, improved after Bourne and IV fluids were discontinued. Did not seem to respond to her home Ativan dose. Plan: Continue supportive care, trial of Depakote for mood control. Hypothyroidism. Plan: Continue levothyroxine Glaucoma. Plan: Resume timolol eyedrops. Medical - PN: Qual - VTE Deep Vein Thrombosis/Pulmonary Embolism Present on Admission: Yes
[2017-07-01] MEDS: oxyCODONE/APAP 5/325MG TABLET PO PRN ×3 (01:26→17:44)
[2017-07-01] MEDS: LORazepam 0.5 MG TABLET PO PRN ×2 (01:27→19:50)
[2017-07-01 05:48] LABS: Mean Cell Volume 95.3 fL (80.0-100.0); Mean Corpuscular HGB Conc 33.4 g/dL (31.0-36.0); Mean Corpuscular Hemoglobin 31.8 pg (26.0-34.0); Platelet Count 220 K/mcL (140-440); RBC 2.89 M/mcL (4.00-5.20)
[2017-07-01 06:00] LABS: ALT/SGPT 8 U/l (0-40); Albumin 2.3 gm/dL (3.2-5.2); Alkaline Phosphatase 159 U/L (39-117); Bilirubin,Direct < 0.2 mg/dL (0.0-0.3); Blood Urea Nitrogen 18 mg/dl (8-23); Gamma Glutamyl Transpeptidase 47 U/L (5-36); Uric Acid 5.1 mg/dL (2.5-8.0)
[2017-07-01] MEDS: 0.9 % SODIUM CHLORIDE 10 ML SYRINGE IV SCH ×3 (06:45→21:41)
[2017-07-01 07:38] LABS: Anisocytosis 1+ (NONE SEEN); Eosinophils % (Manual) 4 % (0-7); Lymphocytes % 19 % (15-49); Monocytes % (Manual) 2 % (1-12); Platelet Estimate NORMAL (NORMAL); RBC Morphology ABNORM (NORMAL); Segmented Neutrophils % 75 % (38-78)
[2017-07-01] MEDS: HEPARIN 5,000 UNIT/ML VIAL SQ SCH ×2 (08:11→19:51)
[2017-07-01] MEDS: DOCUSATE SODIUM 100 MG CAPSULE PO SCH ×2 (08:11→19:50)
[2017-07-01] MEDS: LEVOTHYROXINE 100 MCG TABLET PO SCH (08:12)
[2017-07-01] MEDS: MULTIVIT,THER IRON,CA,FA & MIN 1 TABLET PO SCH (08:12)
--- NOTE | 2017-07-01 09:27 | Orthopedic Progress Note ---
Subjective Patient information: Note initiated : 07/01/17 at 9:25 am Service Date, if different from initiated Date: [] Patient: Juanis Berry 86 y/o F admitted on 06/27/17 for Right Hip Pain, Fall/ Right Femur Fracture. Chief Complaint: [] no complaints Objective Vital signs: Vital Signs Temp Pulse Pulse Resp BP BP Pulse Ox 07/01/17 07:12 99 F 22 108/63 95 07/01/17 04:10 99.2 F H 97 H 17 94/55 90 07/01/17 01:10 101 H 06/30/17 23:33 97.4 F 142 H 21 100/50 91 06/30/17 19:37 97.6 F 97 H 15 109/67 92 06/30/17 16:00 98.3 F 16 116/72 96 06/30/17 12:48 98.8 F 93 H 20 129/69 95 06/30/17 11:28 98.0 F 95 H 24 H 131/65 94 06/30/17 10:34 97.8 F 92 H 20 122/61 95 06/30/17 10:26 98.2 F 106 H 20 108/69 94 Intake and Output 06/30/17 07/01/17 07/01/17 21:59 05:59 13:59 Intake Total 750 / 750 450 / 450 Output Total 650 / 650 Balance 750 / 750 450 / 450 -650 / -650 Intake: IV 250 / 250 Sodium Chloride 0.9% 250 ml @ 250 / 250 20 mls/hr IV .[id number] [facility] Rx#: [id number] Oral 500 / 500 450 / 450 Output: Urine Catheter Amount 650 / 650 Other: # Voids 0 0 Weight 138 lb 8 oz Intake & Output: Intake & Output 06/30/17 07/01/17 07/01/17 21:59 05:59 13:59 Intake Total 750 / 750 450 / 450 Output Total 650 / 650 Balance 750 / 750 450 / 450 -650 / -650 Weight 138 lb 8 oz Intake: IV 250 / 250 Sodium Chloride 0.9% 250 ml @ 250 / 250 20 mls/hr IV .[id number] [facility] Rx#: [id number] Oral 500 / 500 450 / 450 Output: Urine Catheter Amount 650 / 650 Other: # Voids 0 0 Dressing: Yes clean, Yes dry, Yes intact Weight bearing status: non Neurological exam IM: Yes neurovascular intact - Labs CBC & BMP: 07/01/17 04:07 07/01/17 04:07 Labs: Orthopedic Labs 06/28/17 07:09 PT 14.2 INR 1.1 07/01/17 06/30/17 06/29/17 04:07 05:13 04:13 Hgb 9.2 L 7.5 L 8.1 L Hct 27.6 L 22.8 L 24.4 L 06/28/17 06/27/17 03:45 15:26 Hgb 9.8 L 11.0 L Hct 29.6 L 33.0 L Assessment and Plan (1) Supracondylar fracture of femur Status: Acute Qualifiers: Encounter type: subsequent encounter Fracture type: closed (2) Supracondylar fracture of femur Status: Acute Comment: mobilize, dc planning
[2017-07-01] MEDS: TIMOLOL 0.5% OPHTH DROPS BOTTLE 5ML OU SCH ×2 (09:57→19:51)
[2017-07-01] MEDS: cefTRIAXone 1 GM VIAL IV SCH (09:57)
--- NOTE | 2017-07-01 17:16 | Internal Med Progress Note ---
Medical - PN: Subj Patient information: Note initiated : 07/01/17 at 5:13 pm Service Date, if different from initiated Date: [] Patient: Juanis Berry 86 y/o F admitted on 06/27/17 for Right Hip Pain, Fall/ Right Femur Fracture. Chief Complaint: follow-up femur fracture Interval history: [id number]/[id number]-tbrb-old with profound dementia and recent left knee surgery presented while [place] sustained left femur fracture after traumatic fall. Admitted by surgery. Hospitalist consult for management of medical issues. Patient due for surgery in a.m. No significant underlying past history except for hypothyroidism/glaucoma and dementia. Restart in our CR I [employer] [place] [employer] patient would fall under high risk category given advanced age and extremely poor functional status at baseline. 06/28-surgery later today. Patient alert oriented currently nothing by mouth. Multiple family members at bedside. Family aware of risk of surgery. Pain in good control. No overnight events. Pleasantly confused. Mentation at baseline. 06/29-did well during surgery and postoperatively. Today quite agitated, pulling a Bourne catheter. Bourne discontinued, subsequently fluid saline locked, patient became more calm. When I see her she is complaining of some pain in the leg, but otherwise disoriented and calm. 06/30-Patient seen in early afternoon. Patient remains confused but directable. Wants to be up in the chair most of the time. Has not voided after Bourne catheter was taken out, required in and out catheterization for significant retention. Given her agitation with Bourne catheter yesterday, will not resume catheter but follow and use straight catheter as needed. Patient was to go to skilled facility today, however final check of cultures obtained intraoperatively reveals staph aureus growing from a seroma that was overlying hardware. The hardware had been removed. I discussed with Dr. Denney, given staph aureus is the pathogen, this likely represents infection and the patient will need to have final sensitivities and appropriate antibiotics prior to discharge. Her discharge was canceled. 07/01 Mental status about the same. Final culture of intraoperative noted fluid collection is with MSSA. Patient will require 2 weeks of IV antibiotics. Daily ceftriaxone will suffice, every 8 hours cefazolin would also be a choice. Discussed with the patient's daughter. - Constitutional Vitals: Vital Signs Temp Pulse Resp BP Pulse Ox 98.5 F 97 H 20 108/63 95 07/01/17 15:25 07/01/17 04:10 07/01/17 15:25 07/01/17 15:25 07/01/17 15:25 Period Temp Pulse Resp BP Sys/Patrick Pulse Ox Last 24 Hr 97.4 F-99.2 F 97-142 15-22 94-109/50-67 90-95 Intake and Output 07/01/17 07/01/17 07/01/17 05:59 13:59 21:59 Intake Total 450 / 450 120 / 120 Output Total 650 / 650 Balance 450 / 450 -650 / -650 120 / 120 Weight 138 lb 8 oz Patient Weight 07/02/17 05:59 Weight 138 lb 8 oz Intake & Output: Intake & Output 07/01/17 07/01/17 07/01/17 05:59 13:59 21:59 Intake Total 450 / 450 120 / 120 Output Total 650 / 650 Balance 450 / 450 -650 / -650 120 / 120 Weight 138 lb 8 oz Intake: Oral 450 / 450 120 / 120 Output: Urine Catheter Amount 650 / 650 Other: # Voids 0 Medical - PN: Obj Da - Labs CBC & Chem 7: 07/01/17 04:07 07/01/17 04:07 Labs: Abnormal Lab Results 07/01/17 07/01/17 06/30/17 04:07 04:07 05:13 RBC 2.89 L Hgb 9.2 L Hct 27.6 L RDW 17.0 H MPV 7.0 L Seg Neutrophils % Lymphocytes % RBC Morphology Abnorm A Anisocytosis 1+ A Carbon Dioxide Anion Gap 7.0 L Glucose 106 H Calcium 7.5 L 7.5 L GGT 47 H 40 H Alkaline Phosphatase 159 H 152 H Lactate Dehydrogenase 259 H Total Protein 4.7 L 4.6 L Albumin 2.3 L 2.3 L Globulin 06/30/17 06/29/17 06/29/17 05:13 04:13 04:13 RBC 2.32 L 2.50 L Hgb 7.5 L 8.1 L Hct 22.8 L 24.4 L RDW 16.4 H 15.3 H MPV 7.1 L 6.9 L Seg Neutrophils % 83 H 84 H Lymphocytes % 12 L 7 L RBC Morphology Abnorm A Anisocytosis 1+ A Carbon Dioxide 21 L Anion Gap Glucose 118 H Calcium 7.4 L GGT Alkaline Phosphatase 167 H Lactate Dehydrogenase Total Protein 4.5 L Albumin 2.4 L Globulin 2.1 L Microbiology 06/28/17 13:00 Gram Stain - Final Hip - Right Anaerobic Culture - Preliminary Gram Stain - Final Wound Culture - Final Staphylococcus aureus Meds: Medications Acetaminophen (Tylenol) 650 mg PO Q4-6HP PRN PRN Reason: PAIN/FEVER > 101 Bisacodyl (Dulcolax) 10 mg [place] Q2-3DAYS PRN PRN Reason: Constipation Ceftriaxone Sodium (Rocephin) 1 gm IV Q24H [facility] Last Admin: 07/01/17 09:57 Dose: 1 gm Docusate Sodium (Colace) 100 mg PO BID [facility] Last Admin: 07/01/17 08:11 Dose: 100 mg Heparin Sodium (Porcine) (Heparin) 5,000 unit SQ Q12 [facility] Last Admin: 07/01/17 08:11 Dose: 5,000 unit Hydromorphone HCl (Dilaudid) 0 mg IV Q4HP PRN PRN Reason: PAIN LEVEL > 6 Last Admin: 06/29/17 09:45 Dose: 0.5 mg Magnesium Sulfate (Magnesium Sulfate) 2 gm in 50 mls @ 50 mls/hr IV UD PRN PRN Reason: MG = or < 1.7 Acetaminophen (Ofirmev) 1,000 mg in 100 mls @ 200 mls/hr IV Q6HP PRN PRN Reason: PAIN/FEVER > 101 Last Infusion: 06/29/17 04:49 Dose: Infused Iron Carb/Multivit/Instrumental Music Teacher/Folic Acid (Multivitamin W/Minerals) 1 tab PO DAILY [facility] Last Admin: 07/01/17 08:12 Dose: 1 tab Levothyroxine Sodium (Synthroid) 100 mcg PO QAMAC [facility] Last Admin: 07/01/17 08:12 Dose: 100 mcg Lorazepam (Ativan) 0.5 mg PO Q4HP PRN PRN Reason: ANXIETY/SEDATION Last Admin: 07/01/17 01:27 Dose: 0.5 mg Magnesium Hydroxide (Milk Of Magnesia) 30 ml PO BIDP PRN PRN Reason: Constipation Methocarbamol (Robaxin) 750 mg PO Q6HP PRN PRN Reason: Muscle Spasm Last Admin: 06/28/17 20:55 Dose: 750 mg Ondansetron HCl (Zofran) 4 mg IV Q4-6HP PRN PRN Reason: Nausea And Vomiting Oxycodone/Acetaminophen (Percocet 5-325 Mg) 0 tab PO Q4HP PRN PRN Reason: PAIN LEVEL 3-6 Last Admin: 07/01/17 09:39 Dose: 2 tab Polyethylene Glycol (Miralax) 17 gm PO DAILYP PRN PRN Reason: Constipation Senna/Docusate Sodium (Senna Plus Tablet) 1 tab PO HS [facility] Last Admin: 06/30/17 20:43 Dose: 1 tab Sodium Biphosphate/Sodium Phosphate (Fleets Adult) 1 dose [place] Q3-4DAYS PRN PRN Reason: Constipation Sodium Chloride (Saline Flush) 10 ml IV Q8 [facility] Last Admin: 07/01/17 06:45 Dose: Not Given Throat Lozenges (Cepacol) 1 lozenge PO PRN PRN PRN Reason: Sore Throat Timolol Maleate (Timoptic 0.5% Ophth Drops) 1 gtt OU BID [facility] Last Admin: 07/01/17 09:57 Dose: 1 drop Medical - PN: A/P - Time Spent With Patient Total time spent is greater than 50% in coordination of care (as documented) at patient's floor/unit and/or counseling patient: 25 - 35 minutes - Narrative A/P Narrative: 86-year-old female with right supracondylar femur fracture, Underlying dementia. Femur fracture. Postop day #3 status post ORIF. Intraoperative culture of seroma growing MSSA Plan: Nonweightbearing, pain control. Treat with 2 weeks IV antibiotics for infected seroma. Urinary tract infection. Escherichia coli sensitive to cephalosporins and culture. Plan: Continue ceftriaxone, will be fully treated after Rx of MSSA above. Dementia. Was disoriented and agitated earlier in week, improved after Bourne and IV fluids were discontinued. Did not seem to respond to her home Ativan dose. Plan: Continue supportive care, trial of Depakote for mood control. Hypothyroidism. Plan: Continue levothyroxine Glaucoma. Plan: Resume timolol eyedrops. Medical - PN: Qual - VTE Deep Vein Thrombosis/Pulmonary Embolism Present on Admission: Yes
[2017-07-01] MEDS: SENNOSIDES/DOCUSATE SODIUM 1 TAB TABLET PO SCH (19:50)
[2017-07-02] MEDS: oxyCODONE/APAP 5/325MG TABLET PO PRN ×3 (01:54→16:50)
[2017-07-02] MEDS: 0.9 % SODIUM CHLORIDE 10 ML SYRINGE IV SCH ×3 (05:18→22:17)
[2017-07-02 06:51] LABS: Mean Cell Volume 95.8 fL (80.0-100.0); Mean Corpuscular HGB Conc 33.1 g/dL (31.0-36.0); Mean Corpuscular Hemoglobin 31.7 pg (26.0-34.0); Platelet Count 242 K/mcL (140-440); RBC 2.85 M/mcL (4.00-5.20); Red Cell Distribution Width 16.6 % (11.5-14.5)
[2017-07-02 07:13] LABS: Blood Urea Nitrogen 16 mg/dl (8-23)
[2017-07-02] MEDS: LEVOTHYROXINE 100 MCG TABLET PO SCH (07:36)
[2017-07-02] MEDS: DOCUSATE SODIUM 100 MG CAPSULE PO SCH ×2 (08:56→19:39)
[2017-07-02] MEDS: MULTIVIT,THER IRON,CA,FA & MIN 1 TABLET PO SCH (08:56)
[2017-07-02] MEDS: TIMOLOL 0.5% OPHTH DROPS BOTTLE 5ML OU SCH ×2 (08:56→19:39)
[2017-07-02] MEDS: HEPARIN 5,000 UNIT/ML VIAL SQ SCH ×2 (08:56→19:39)
--- NOTE | 2017-07-02 08:56 | Orthopedic Progress Note ---
Subjective Patient information: Note initiated : 07/02/17 at 8:56 am Service Date, if different from initiated Date: [] Patient: Juanis Berry 86 y/o F admitted on 06/27/17 for Right Hip Pain, Fall/ Right Femur Fracture. Chief Complaint: [POD #5 s/p right femur fracture fixation Patient doing well this morning, resting comfortably in bed. Reports mild to moderate discomfort in the right lower extremity but tolerating it ok. Has been working with PT some and is doing well with it. She denies numbness or tingling throughout the extremity as well as calf pain, SOB or chest pain. She has questions or concerns.] Objective Vital signs: Vital Signs Temp Pulse Resp BP BP Pulse Ox 07/02/17 07:06 98.4 F 18 126/74 92 07/02/17 03:15 99.3 F H 81 18 96/47 92 07/01/17 23:34 98.6 F 86 19 126/61 95 07/01/17 20:00 99.6 F H 94 H 18 142/60 93 07/01/17 15:25 98.5 F 20 108/63 95 07/01/17 11:35 98.8 F 20 102/64 95 Intake and Output 07/01/17 07/02/17 07/02/17 21:59 05:59 13:59 Intake Total 120 / 120 650 / 650 Output Total 500 / 500 500 / 500 Balance -380 / -380 150 / 150 Intake: Oral 120 / 120 650 / 650 Output: Void Amount 500 / 500 500 / 500 Straight Cath #2 500 / 500 Straight Cath #3 500 / 500 Other: Weight 140 lb Intake & Output: Intake & Output 07/01/17 07/02/17 07/02/17 21:59 05:59 13:59 Intake Total 120 / 120 650 / 650 Output Total 500 / 500 500 / 500 Balance -380 / -380 150 / 150 Weight 140 lb Intake: Oral 120 / 120 650 / 650 Output: Void Amount 500 / 500 500 / 500 Straight Cath #2 500 / 500 Straight Cath #3 500 / 500 Incision: Yes healing, Yes clean and dry Incision clean and dry: Yes Dressing: Yes clean, Yes dry, Yes intact Weight bearing status: non Neurological exam IM: Yes alert, Yes oriented X3, Yes motor sensory intact, Yes neurovascular intact Extremities exam IM: No calf tenderness, Yes normal capillary refill, No Anthony' s sign, Yes Foot pink and warm, Yes neurovascular intact - Periperhal Pulses Peripheral pulses: 2+: dorsalis pedis (L), dorsalis pedis (R), posterior tibialis (L), posterior tibialis (R) - Labs CBC & BMP: 07/02/17 04:12 07/02/17 04:12 Labs: Orthopedic Labs 06/28/17 07:09 PT 14.2 INR 1.1 07/02/17 07/01/17 06/30/17 04:12 04:07 05:13 Hgb 9.0 L 9.2 L 7.5 L Hct 27.3 L 27.6 L 22.8 L 06/29/17 06/28/17 06/27/17 04:13 03:45 15:26 Hgb 8.1 L 9.8 L 11.0 L Hct 24.4 L 29.6 L 33.0 L Assessment and Plan (1) Fracture, femur, distal Assessment: right distal femur fracture with ORIF on 06/27/17 Plan: -pain control -medical management per hospitalist -antibiotics per hospitalist -d/c to SNF per hospitalist this week -Continue with knee ranger -Keep dressing CDI -NWB Status: Acute
[2017-07-02] MEDS: cefTRIAXone 1 GM VIAL IV SCH (09:29)
[2017-07-02] MEDS: LORazepam 0.5 MG TABLET PO PRN ×2 (14:24→19:39)
--- NOTE | 2017-07-02 17:13 | Internal Med Progress Note ---
Medical - PN: Subj Patient information: Note initiated : 07/02/17 at 5:09 pm Service Date, if different from initiated Date: [] Patient: Juanis Berry 86 y/o F admitted on 06/27/17 for Right Hip Pain, Fall/ Right Femur Fracture. Chief Complaint: f/u femur fracture Interval history: 06/2728-47-mmdu-old with profound dementia and recent left knee surgery presented while [place] sustained left femur fracture after traumatic fall. Admitted by surgery. Hospitalist consult for management of medical issues. Patient due for surgery in a.m. No significant underlying past history except for hypothyroidism/glaucoma and dementia. Restart in our CR I [place] [employer] patient would fall under high risk category given advanced age and extremely poor functional status at baseline. 06/28-surgery later today. Patient alert oriented currently nothing by mouth. Multiple family members at bedside. Family aware of risk of surgery. Pain in good control. No overnight events. Pleasantly confused. Mentation at baseline. 06/29-did well during surgery and postoperatively. Today quite agitated, pulling a Bourne catheter. Bourne discontinued, subsequently fluid saline locked, patient became more calm. When I see her she is complaining of some pain in the leg, but otherwise disoriented and calm. 2-Patient seen in early afternoon. Patient remains confused but directable. Wants to be up in the chair most of the time. Has not voided after Bourne catheter was taken out, required in and out catheterization for significant retention. Given her agitation with Bourne catheter yesterday, will not resume catheter but follow and use straight catheter as needed. Patient was to go to skilled facility today, however final check of cultures obtained intraoperatively reveals staph aureus growing from a seroma that was overlying hardware. The hardware had been removed. I discussed with Dr. Denney, given staph aureus is the pathogen, this likely represents infection and the patient will need to have final sensitivities and appropriate antibiotics prior to discharge. Her discharge was canceled. 2/3 Mental status about the same. Final culture of intraoperative noted fluid collection is with MSSA. Patient will require 2 weeks of IV antibiotics. Daily ceftriaxone will suffice, every 8 hours cefazolin would also be a choice. Discussed with the patient's daughter. 2/4 Mental status about the same. Intermittently complaining of knee pain. Pulling at IV access. In spite of being wrapped with Kerlix, has pulled out another IV this afternoon. Discussed with nursing, being high risk to pull out her PICC line if it was placed for IV antibiotics given her staph aureus infection in the wound bed. A reasonable alternative would be to use IM ceftriaxone to complete a two-week course. Today is day #4 of ceftriaxone. - Constitutional Vitals: Vital Signs Temp Pulse Resp BP Pulse Ox 97.6 F 81 18 127/63 91 07/02/17 15:02 07/02/17 03:15 07/02/17 15:02 07/02/17 15:02 07/02/17 15:02 Period Temp Pulse Resp BP Sys/Patrick Pulse Ox Last 24 Hr 97.6 F-99.6 F 81-94 18-20 96-142/47-74 91-95 Intake and Output 07/02/17 07/02/17 07/02/17 05:59 13:59 21:59 Intake Total 650 / 650 570 / 570 Output Total 500 / 500 640 / 640 Balance 150 / 150 -70 / -70 Intake & Output: Intake & Output 07/02/17 07/02/17 07/02/17 05:59 13:59 21:59 Intake Total 650 / 650 570 / 570 Output Total 500 / 500 640 / 640 Balance 150 / 150 -70 / -70 Intake: Oral 650 / 650 570 / 570 Output: Void Amount 500 / 500 640 / 640 Straight 640 / 640 Straight Cath #3 500 / 500 Other: Meal Breakfast Percent of Meal Consumed 50% Feeding Ability Needs Supervision Exam: General: Lying in bed, no acute distress Chest: Clear, no rales, unlabored respirations Cardiovascular: Regular, trace right lower extremity edema Abdomen: Soft, nontender, active bowel sounds Musculoskeletal: Right lower extremity in brace. Surgical dressing appears intact. 2+ dorsalis pedis pulse Neuro: Awake, alert, oriented to self. Strength appears equal in upper extremities and left lower extremity. Medical - PN: Obj Da - Labs CBC & Chem 7: 07/02/17 04:12 07/02/17 04:12 Labs: Abnormal Lab Results 07/02/17 07/02/17 07/01/17 04:12 04:12 04:07 RBC 2.85 L Hgb 9.0 L Hct 27.3 L RDW 16.6 H MPV 7.1 L Seg Neutrophils % Lymphocytes % RBC Morphology Anisocytosis Anion Gap Glucose Calcium 7.8 L 7.5 L GGT 47 H Alkaline Phosphatase 159 H Lactate Dehydrogenase 259 H Total Protein 4.7 L Albumin 2.3 L 07/01/17 06/30/17 06/30/17 04:07 05:13 05:13 RBC 2.89 L 2.32 L Hgb 9.2 L 7.5 L Hct 27.6 L 22.8 L RDW 17.0 H 16.4 H MPV 7.0 L 7.1 L Seg Neutrophils % 83 H Lymphocytes % 12 L RBC Morphology Abnorm A Abnorm A Anisocytosis 1+ A 1+ A Anion Gap 7.0 L Glucose 106 H Calcium 7.5 L GGT 40 H Alkaline Phosphatase 152 H Lactate Dehydrogenase Total Protein 4.6 L Albumin 2.3 L Microbiology 06/28/17 13:00 Gram Stain - Final Hip - Right Anaerobic Culture - Preliminary Gram Stain - Final Wound Culture - Final Staphylococcus aureus Meds: Medications Acetaminophen (Tylenol) 650 mg PO Q4-6HP PRN PRN Reason: PAIN/FEVER > 101 Bisacodyl (Dulcolax) 10 mg [place] Q2-3DAYS PRN PRN Reason: Constipation Ceftriaxone Sodium (Rocephin) 1 gm IV Q24H [facility] Last Admin: 07/02/17 09:29 Dose: 1 gm Docusate Sodium (Colace) 100 mg PO BID [facility] Last Admin: 07/02/17 08:56 Dose: 100 mg Heparin Sodium (Porcine) (Heparin) 5,000 unit SQ Q12 [facility] Last Admin: 07/02/17 08:56 Dose: 5,000 unit Hydromorphone HCl (Dilaudid) 0 mg IV Q4HP PRN PRN Reason: PAIN LEVEL > 6 Last Admin: 06/29/17 09:45 Dose: 0.5 mg Magnesium Sulfate (Magnesium Sulfate) 2 gm in 50 mls @ 50 mls/hr IV UD PRN PRN Reason: MG = or < 1.7 Acetaminophen (Ofirmev) 1,000 mg in 100 mls @ 200 mls/hr IV Q6HP PRN PRN Reason: PAIN/FEVER > 101 Last Infusion: 06/29/17 04:49 Dose: Infused Iron Carb/Multivit/Literacy Coach/Folic Acid (Multivitamin W/Minerals) 1 tab PO DAILY [facility] Last Admin: 07/02/17 08:56 Dose: 1 tab Levothyroxine Sodium (Synthroid) 100 mcg PO QAMAC [facility] Last Admin: 07/02/17 07:36 Dose: 100 mcg Lorazepam (Ativan) 0.5 mg PO Q4HP PRN PRN Reason: ANXIETY/SEDATION Last Admin: 07/02/17 14:24 Dose: 0.5 mg Magnesium Hydroxide (Milk Of Magnesia) 30 ml PO BIDP PRN PRN Reason: Constipation Methocarbamol (Robaxin) 750 mg PO Q6HP PRN PRN Reason: Muscle Spasm Last Admin: 06/28/17 20:55 Dose: 750 mg Ondansetron HCl (Zofran) 4 mg IV Q4-6HP PRN PRN Reason: Nausea And Vomiting Oxycodone/Acetaminophen (Percocet 5-325 Mg) 0 tab PO Q4HP PRN PRN Reason: PAIN LEVEL 3-6 Last Admin: 07/02/17 16:50 Dose: 2 tab Polyethylene Glycol (Miralax) 17 gm PO DAILYP PRN PRN Reason: Constipation Senna/Docusate Sodium (Senna Plus Tablet) 1 tab PO HS [facility] Last Admin: 07/01/17 19:50 Dose: 1 tab Sodium Biphosphate/Sodium Phosphate (Fleets Adult) 1 dose [place] Q3-4DAYS PRN PRN Reason: Constipation Sodium Chloride (Saline Flush) 10 ml IV Q8 [facility] Last Admin: 07/02/17 13:43 Dose: Not Given Throat Lozenges (Cepacol) 1 lozenge PO PRN PRN PRN Reason: Sore Throat Timolol Maleate (Timoptic 0.5% Ophth Drops) 1 gtt OU BID [facility] Last Admin: 07/02/17 08:56 Dose: 1 drop Medical - PN: A/P - Time Spent With Patient Total time spent is greater than 50% in coordination of care (as documented) at patient's floor/unit and/or counseling patient: Greater than 35 minutes - Narrative A/P Narrative: 86-year-old female with right supracondylar femur fracture, Underlying dementia. Femur fracture. Postop day #4 status post ORIF. Intraoperative culture of seroma grew MSSA Plan: Nonweightbearing, pain control. Treat with 2 weeks antibiotics for infected seroma, given that it was close to implanted hardware from prior ORIF of hip fracture earlier in May. As IV access difficult given her propensity to pulled catheters, will use IM ceftriaxone. Today is day 4 of antibiotics. Urinary tract infection. Escherichia coli sensitive to cephalosporins and culture. Plan: Continue ceftriaxone, will be fully treated after Rx of MSSA above. Dementia. Was disoriented and agitated earlier in week, improved after Bourne and IV fluids were discontinued. Did not seem to respond to her home Ativan dose. Plan: Continue supportive care, trial of Depakote for mood control-->stopped Hypothyroidism. Plan: Continue levothyroxine Glaucoma. Plan: Resume timolol eyedrops. Medical - PN: Qual - VTE Deep Vein Thrombosis/Pulmonary Embolism Present on Admission: Yes
[2017-07-02] MEDS: SENNOSIDES/DOCUSATE SODIUM 1 TAB TABLET PO SCH (19:39)
[2017-07-03] MEDS: oxyCODONE/APAP 5/325MG TABLET PO PRN ×2 (03:48→12:05)
[2017-07-03] MEDS: 0.9 % SODIUM CHLORIDE 10 ML SYRINGE IV SCH ×2 (05:58→12:37)
[2017-07-03] MEDS ORDERED: cefTRIAXone 1 GM VIAL IM SCH (09:00)
[2017-07-03] MEDS: LEVOTHYROXINE 100 MCG TABLET PO SCH (10:10)
[2017-07-03] MEDS: HEPARIN 5,000 UNIT/ML VIAL SQ SCH (10:10)
[2017-07-03] MEDS: MULTIVIT,THER IRON,CA,FA & MIN 1 TABLET PO SCH (10:10)
[2017-07-03] MEDS: DOCUSATE SODIUM 100 MG CAPSULE PO SCH (10:10)
[2017-07-03] MEDS: TIMOLOL 0.5% OPHTH DROPS BOTTLE 5ML OU SCH (10:11)
--- NOTE | 2017-07-03 10:50 | Discharge Summary ---
Medical - DS: Prov Patient information: Note initiated : 07/03/17 at 10:48 am Service Date, if different from initiated Date: [] Patient: Juanis Berry 86 y/o F admitted on 06/27/17 for Right Hip Pain, Fall/ Right Femur Fracture. Date of admission: 06/27/17 19:06 Discharge date: 07/03/17 Primary care physician: Vic Dimas Admitting clinician: Helio Huerta Consults: 06/27/17 17:29 Consult to Physician [CONS] Stat Comment: Consulting Provider: Helio Huerta Reason For Exam: Physician to Consult 06/27/17 17:30 Consult to Physician [CONS] Stat Comment: Consulting Provider: Gabriel Denney Reason For Exam: Physician to Consult 06/28/17 09:21 Consult to Physician [CONS] Routine Comment: Consulting Provider: [facility] Reason For Exam: Physician to Consult Discharging clinician: Kaci Paz Medical - DS: Meds - Discharge Medications Prescriptions: cefTRIAXone [Rocephin] 1 gm IM Q24H #9 vial Hydrocodone/APAP 7.5/325Mg [[place] 7.5/325Mg] 1 - 2 tab PO Q4HP PRN #50 tab PRN Reason: Pain Active and Home Medications: Home Medications Timolol 0.5% Ophth Drops [Timoptic 0.5% Ophth Drops] 1 gtt OU BID 06/07/17 [ History Confirmed 06/27/17 Last Taken 06/27/17 08:00] Acetaminophen [Tylenol] 650 mg PO Q6HP PRN #30 tablet 06/10/17 [Rx Confirmed Last Taken 06/27/17 06:00] Aspirin [Ecotrin] 325 mg PO BID tab.ec 06/10/17 [Rx Confirmed 06/27/17 Last Taken 06/27/17 08:00] Docusate Sodium [Colace] 100 mg PO BID capsule 06/10/17 [Rx Confirmed 06/27/17 Last Taken 06/27/17 08:00] LORazepam [Ativan] 0.5 mg PO Q4HP PRN tablet 06/10/17 [Rx Confirmed 06/27/17 Last Taken 06/27/17 12:00] Levothyroxine [Synthroid] 100 mcg PO DAILY 06/27/17 [History Confirmed 06/27/17 Last Taken 06/27/17 06:00] Hydrocodone/APAP 7.5/325Mg [[place] 7.5/325Mg] 1 - 2 tab PO Q4HP PRN #50 tab 06/29 [Rx Last Taken Unknown] Methocarbamol [Robaxin] 750 mg PO Q6HP PRN tablet 06/30/17 [Rx Last Taken Unknown] Multivit,Ther Iron,Ca,FA & Min [Multivitamin W/Minerals] 1 tab PO DAILY tablet 06/30/17 [Rx Last Taken Unknown] Sennosides/Docusate Sodium [Senna Plus Tablet] 1 tab PO HS tablet 06/30/17 [Rx Last Taken Unknown] cefTRIAXone [Rocephin] 1 gm IM Q24H #9 vial 07/02/17 [Rx Last Taken Unknown] Medical - DS: Hosp Hospital course: [id number]-old with profound dementia and recent fall with ORIF of right intertrochanteric hip fracture, presented after fall as SNF with right supracondylar femur fracture. Admitted by surgery. Hospitalist consult for management of medical issues. Patient due for surgery in a.m. No significant underlying past history except for hypothyroidism/glaucoma and dementia. Restart in our CR I [employer] patient would fall under high risk category given advanced age and extremely poor functional status at baseline. 06/28-surgery later today. Patient alert oriented currently nothing by mouth. Multiple family members at bedside. Family aware of risk of surgery. Pain in good control. No overnight events. Pleasantly confused. Mentation at baseline. 06/29-did well during surgery and postoperatively. Today quite agitated, pulling a Bourne catheter. Bourne discontinued, subsequently fluid saline locked, patient became more calm. When I see her she is complaining of some pain in the leg, but otherwise disoriented and calm. 2/-Patient seen in early afternoon. Patient remains confused but directable. Wants to be up in the chair most of the time. Has not voided after Bourne catheter was taken out, required in and out catheterization for significant retention. Given her agitation with Bourne catheter yesterday, will not resume catheter but follow and use straight catheter as needed. Patient was to go to skilled facility today, however final check of cultures obtained intraoperatively reveals staph aureus growing from a seroma that was overlying hardware. The hardware had been removed. I discussed with Dr. Denney, given staph aureus is the pathogen, this likely represents infection and the patient will need to have final sensitivities and appropriate antibiotics prior to discharge. Her discharge was canceled. 2 Mental status about the same. Final culture of intraoperative noted fluid collection is with MSSA. Patient will require 2 weeks of IV antibiotics. Daily ceftriaxone will suffice, every 8 hours cefazolin would also be a choice. Discussed with the patient's daughter. 07/02 Mental status about the same. Intermittently complaining of knee pain. Pulling at IV access. In spite of being wrapped with Kerlix, has pulled out another IV this afternoon. Discussed with nursing, being high risk to pull out her PICC line if it was placed for IV antibiotics given her staph aureus infection in the wound bed. A reasonable alternative would be to use IM ceftriaxone to complete a two-week course. Today is day #4 of ceftriaxone. 2/5-Stable overnight. Getting IM ceftriaxone here as she pulled out IV access. Will also require TID straight cath to assure bladder emptying, and does not tolerate Bourne catheter due to agitation from dementia Discharge diagnosis: Right supracondylar femur fracture Secondary discharge diagnosis: Seroma from prior ORIF of right hip with staph aureus on culture. Urinary tract infection Severe dementia - Time Spent with Patient Total time spent providing and/or coordinating discharge services: Greater than 30 minutes Medical - DS: Exam - Constitutional Vitals: Vital Signs Temp Pulse Pulse Resp BP BP BP 07/03/17 08:00 98.4 F 87 16 136/58 07/03/17 07:20 89 07/03/17 04:00 98.6 F 93 H 18 135/48 07/02/17 23:27 98.4 F 80 18 115/49 07/02/17 19:47 98.9 F 98 H 18 110/51 07/02/17 15:02 97.6 F 18 127/63 07/02/17 11:53 98.7 F 20 133/62 Pulse Ox 07/03/17 08:00 93 07/03/17 07:20 94 07/03/17 04:00 98 07/02/17 23:27 93 07/02/17 19:47 95 07/02/17 15:02 91 07/02/17 11:53 92 Intake and Output 07/02/17 07/03/17 07/03/17 21:59 05:59 13:59 Intake Total 150 / 150 Balance 150 / 150 Intake: Oral 150 / 150 Other: Percent of Meal Consumed 25% Feeding Ability Needs Supervision # Bowel Movements 1 Weight 141 lb Additional comments: General: Laying in bed in no acute distress Chest: Clear, unlabored Cardiovascular: Regular Abdomen: Soft, nontender, active bowel sounds Musculoskeletal: Right lower extremity in immobilizer, neurovascularly intact Neuro: Alert, oriented only to self, moves all other extremities equally. Medical - DS: Data Procedures and tests throughout hospitalization: 06/28/2017 OPERATION PROPOSED: Removal of the intramedullary device, revision rodding of the intertrochanteric hip fracture and open reduction and internal fixation of distal supracondylar femur fracture. OPERATION PERFORMED: Right hip hemiarthroplasty. OPERATING SURGEON: Gabriel Denney MD DATA PROCESSING CONTROL CLERK: Jeb May PA-C INDICATIONS: This is a lady who had a hip fracture about 3 weeks ago, was treated with an intramedullary ariella. She has fallen and broken the distal femur in the supracondylar region just distal to the ariella. We have elected to remove the ariella, place a shorter intramedullary device and do a revision rodding with a shorter device and open reduction and internal fixation of the supracondylar femur. Labs on day of discharge: Microbiology 06/28/17 13:00 Gram Stain - Final Hip - Right Anaerobic Culture - Preliminary Gram Stain - Final Wound Culture - Final Staphylococcus aureus - Impressions HISTORY: Reason for Exam: 2 view of right femur status post repair fractured distal femur FINDINGS: There is a comminuted fracture in the distal shaft of the femur. There is now good alignment following open reduction internal fixation. The displacement and angulation seen preoperatively has been corrected. There is a metal plate secured to the lateral border of the distal femur using cerclage wires proximally and transversely oriented screws extending into the femoral condyles. The long femoral ariella which was seen on the prior exam done on 06/27/17 has been replaced with a shorter ariella. The new ariella does not extend across the fracture line. The intertrochanteric fracture of the right hip remains stable and has not yet healed. IMPRESSION: Good alignment following reduction of the fractured distal femur Medical - DS: A/P - Patient/Caregiver Discharge Instructions Activity: as instructed Diet: Regular Diet Additional Instructions: Non weight bearing right lower extremity, keep leg in brace. Prescriptions: cefTRIAXone [Rocephin] 1 gm IM Q24H #9 vial Hydrocodone/APAP 7.5/325Mg [[place] 7.5/325Mg] 1 - 2 tab PO Q4HP PRN #50 tab PRN Reason: Pain - Follow up Plan Follow up with: Vic Dimas MD [Primary Care Provider] - Disposition: [facility] Prognosis: Serious Rehab Potential: Serious I certify that the patient requires SNF services: Yes Overall status at discharge: patient is not back to baseline Medical - DS: Qual - VTE Deep Vein Thrombosis/Pulmonary Embolism Present on Admission: Yes
[2017-07-03] MEDS: METHOCARBAMOL 750 MG TABLET PO PRN (12:05)
== END 2017-07-03 13:40 | DRG 481 ==
LOC: ED 14:09 → ICU 19:06 → MEDSUR 06-28 16:25
PROVIDERS: ADMIT Internal Medicine; ATTEND Internal Medicine

== ENCOUNTER 2017-08-14 16:21 | Inpatient (IN) ==
[2017-08-14] MEDS ORDERED: PANTOPRAZOLE 40 MG VIAL IV ONE (16:59)
[2017-08-14] MEDS ORDERED: PANTOPRAZOLE 80 MG in 0.9 % SODIUM CHLORIDE 100 ML IV SCH (17:00)
--- NOTE | 2017-08-14 17:08 | Emergency Department Note ---
GI Bleed HPI - General Chief complaint: Rectal Bleed Stated complaint: Vomiting and diarrhea of hector red blood Time Seen by Provider: 08/14/17 16:59 Source: patient Mode of arrival: wheelchair Limitations: no limitations - Related Data Home Medications Medication Instructions Recorded Confirmed Timolol 0.5% Ophth Drops [Timoptic 1 gtt OU BID 06/07/17 06/27/17 0.5% Ophth Drops] Levothyroxine [Synthroid] 100 mcg PO DAILY 06/27/17 06/27/17 Previous Rx's Medication Instructions Recorded Acetaminophen [Tylenol] 650 mg PO Q6HP PRN #30 tablet 06/10/17 Aspirin [Ecotrin] 325 mg PO BID tab.ec 06/10/17 Docusate Sodium [Colace] 100 mg PO BID capsule 06/10/17 LORazepam [Ativan] 0.5 mg PO Q4HP PRN tablet 06/10/17 Hydrocodone/APAP 7.5/325Mg [[place] 1 - 2 tab PO Q4HP PRN #50 tab 06/29/17 7.5/325Mg] Methocarbamol [Robaxin] 750 mg PO Q6HP PRN tablet 06/30/17 Multivit,Ther Iron,Ca,FA & Min 1 tab PO DAILY tablet 06/30/17 [Multivitamin W/Minerals] Sennosides/Docusate Sodium [Senna 1 tab PO HS tablet 06/30/17 Plus Tablet] cefTRIAXone [Rocephin] 1 gm IM Q24H #9 vial 07/02/17 LORazepam [Ativan] 0.5 mg PO Q4HP PRN #60 tab 07/03/17 Allergies Allergy/AdvReac Type Severity Reaction Status Date / Time penicillin V Allergy Mild RASH Verified 08/14/17 16:27 Sulfa (Sulfonamide Allergy Mild Rash Verified 08/14/17 16:27 Antibiotics) Review of Systems All systems ED: reviewed and negative except as stated. Constitutional: Denies: fever, chills Eyes: Denies: eye pain ENT ED: Denies: ear pain Cardiovascular: Denies: chest pain Respiratory: Denies: shortness of breath Gastrointestinal: Reports: other (vomitted Bright red blood also bright red blood rectally 2). Denies: abdominal pain Genitourinary: Denies: dysuria, urgency Musculoskeletal: Denies: back pain Integumentary: Denies: rash Neurological: Denies: headache Psychiatric: Denies: anxiety Endocrine: Denies: fatigue Hematological/Lymphatic: Denies: easy bleeding Allergic/Immunologic: Denies: facial swelling Past Medical History - Past Medical History Medical history: Reports: dementia, thyroid disease, other ([place] her degeneration). Denies: COPD, coronary artery disease Surgical history ED: Reports: PARK/BSO, other (Ankle fusion, recent fall and fracture of the right femur with ariella placement May 2017) - Social History smoking status: Never smoker Alcohol use: Reports: None Drug use: Reports: none Physical Exam Limitations: no limitations General appearance: alert, anxious Head: atraumatic, normocephalic Eye: Present: normal appearance, PERRL ENT: normal exam, normal oropharynx, mucous membranes moist Neck: Present: normal inspection, full ROM, trachea midline Chest: Present: normal inspection, symmetric chest wall rise, tenderness Respiratory: Present: normal lung sounds bilaterally, respiratory distress, wheezes Cardiovascular: Present: regular rate, normal rhythm, normal heart sounds. Absent: bradycardia, tachycardia, irregular rhythm Abdominal: Present: soft, normal bowel sounds. Absent: distention, tenderness, guarding, rebound, rigidity, organomegaly, Silva's sign Rectal: Present: heme (+) stool, bloody stool Extremities: Present: normal inspection, full ROM Back: Present: normal inspection, full ROM Neurological: Present: other (has dementia) Psychiatric: Present: normal affect Course Vital Signs Pulse Rate 96 H 08/14/17 16:22 Respiratory Rate 18 08/14/17 16:22 Blood Pressure 118/62 08/14/17 16:22 Pulse Oximetry (%) 96 08/14/17 16:22 Pulse Rate 104 H 08/14/17 16:46 Respiratory Rate 21 08/14/17 17:01 Blood Pressure 109/72 08/14/17 17:01 Pulse Oximetry (%) 96 08/14/17 16:46 GI Bleed - [facility] Narrative Medical decision making narrative: Hb 10.7 hct 32,4 na 132, k 4.3 glucose 153 . Her vital signs remained stable with a blood pressure 153 systolically heart rate in the 80s she does have bright red rectal bleeding also bright red blood vomitus times one time. Dr Chavez consulted. Patient to be admitted to the hospitalist and he will consult and consider doing the EGD this evening. Patient states she last ate at noon but unsure how reliable this is as of her Alzheimer's. States she is having no distress at this time appetite has been poor there is been no melena previously. She had 2 hip fractures in May. Melina contacted and patient to be admitted to hospitalist service stabilization. Currently on a Protonix drip for a bolus of 80 mg. - Lab Data Result diagrams: 08/14/17 16:39 08/14/17 16:39 Lab Results 08/14/17 08/14/17 Range/Units 16:39 16:39 WBC 12.4 H (4.5-11.0) K/mcL RBC 3.40 L (4.00-5.20) M/mcL Hgb 10.7 L (12.0-15.0) g/dL Hct 32.4 L (36.0-48.0) % POC Hct 34.0 L (36.0-48.0) % MCV 95.4 (80.0-100.0) fL MCH 31.6 (26.0-34.0) pg MCHC 33.1 (31.0-36.0) g/dL RDW 16.1 H (11.5-14.5) % Plt Count 340 (140-440) K/mcL MPV 6.9 L (7.4-10.4) fL Gran % 48.5 (38.0-78.0) % Lymph % (Auto) 42.2 (15.5-49.0) % [place] % (Auto) 6.9 (1.0-12.0) % Eos % (Auto) 2.2 (0.0-7.0) % Baso % (Auto) 0.2 (0.0-2.0) % Gran # 6.0 (1.8-8.0) K/mcL Lymph # (Auto) 5.2 H (1.5-4.8) K/mcL [place] # (Auto) 0.9 (0.1-0.9) K/mcL Eos # (Auto) 0.3 (0.0-0.7) K/mcL Baso # (Auto) 0 (0.0-0.3) K/mcL POC Sodium 132 L (133-145) mmol/L POC Potassium 4.3 (3.3-5.1) mmol/L POC Chloride 99 (96-108) mmol/L POC Total CO2 21 L (22-30) mmol/L POC BUN 17 (8-23) mg/dl POC Creatinine 1.1 (0.6-1.1) mg/dl POC Glucose 183 H (70-105) mg/dL POC WB Ioniz Calcium 1.10 L (1.16-1.32) mmol/L Disposition Pt seen by CUT FILER/PA only: No Clinical Impression: Upper GI bleed Disposition: Xfer As Inpt ([facility]) Condition: Fair Referrals: Vic Dimas MD [Primary Care Provider] - Time of Disposition: 17:36
[2017-08-14 17:16] LABS: Basophils # (Auto) 0 K/mcL (0.0-0.3); Basophils % (Auto) 0.2 % (0.0-2.0); Eosinophils # (Auto) 0.3 K/mcL (0.0-0.7); Eosinophils % (Auto) 2.2 % (0.0-7.0); Granulocytes % (Auto) 48.5 % (38.0-78.0); Lymphocytes # (Auto) 5.2 K/mcL (1.5-4.8); Lymphocytes % (Auto) 42.2 % (15.5-49.0); Mean Cell Volume 95.4 fL (80.0-100.0); Mean Corpuscular HGB Conc 33.1 g/dL (31.0-36.0); Mean Corpuscular Hemoglobin 31.6 pg (26.0-34.0); Monocytes # (Auto) 0.9 K/mcL (0.1-0.9); Monocytes % (Auto) 6.9 % (1.0-12.0); Platelet Count 340 K/mcL (140-440); Red Cell Distribution Width 16.1 % (11.5-14.5)
[2017-08-14 17:43] LABS: ALT/SGPT 10 U/l (0-40); Albumin 3.4 gm/dL (3.2-5.2); Albumin/Globulin Ratio 1.2 (1.0-2.3); Alkaline Phosphatase 156 U/L (39-117); Blood Urea Nitrogen 17 mg/dl (8-23)
[2017-08-14] MEDS ORDERED: PROPOFOL 20 ML IV ONE (17:52)
[2017-08-14] MEDS ORDERED: MIDAZOLAM 2 MG/2 ML VIAL ONE (17:52)
--- NOTE | 2017-08-14 18:03 | XRay Report ---
INDICATION: Gastrointestinal bleeding TECHNIQUE: AP chest x-ray,portable upright COMPARISON: 06/27/2017, 06/07/2017 FINDINGS:No acute or focal pulmonary parenchymal infiltrate. Heart size and vascularity are normal. No pulmonary edema or pulmonary congestion. No acute abnormality. No interval change IMPRESSION: Negative AP portable chest x-ray Interpreted and Authenticated by: Hugo Alejandre 08/14/17
--- NOTE | 2017-08-14 18:05 | XRay Report ---
CLINICAL INFORMATION: Weakness. Vomiting and diarrhea. TECHNIQUE: Supine and upright abdomen COMPARISON: None. FINDINGS: Gas and fecal material within the colon. No dilated gas-filled small bowel. No air-fluid levels. No pneumoperitoneum. No biliary or portal venous gas. No pneumatosis. Incidental note is made of previous open reduction and internal fixation of intertrochanteric hip fracture IMPRESSION: Negative abdomen Interpreted and Authenticated by: Hugo Alejandre 08/14/17
[2017-08-14] MEDS ORDERED: 0.9 % SODIUM CHLORIDE 1,000 ML IV ONE (18:15)
[2017-08-14] MEDS ORDERED: EPINEPHrine 1 MG/ML AMPUL ONE ×2 (18:23→18:44)
[2017-08-14] MEDS ORDERED: EPINEPHrine 1 MG/ML AMPUL IJ ONE (18:44)
[2017-08-14] MEDS ORDERED: MIDAZOLAM 2 MG/2 ML VIAL IV SCH (18:45)
[2017-08-14] MEDS ORDERED: PROPOFOL 200 MG/20 ML VIAL IV SCH (18:45)
[2017-08-14] MEDS ORDERED: POTASSIUM CHLORIDE 20 MEQ PACKET PO PRN (19:08)
[2017-08-14] MEDS ORDERED: ONDANSETRON 4 MG/2 ML VIAL IV PRN (19:08)
[2017-08-14] MEDS ORDERED: MAGNESIUM SULFATE 2 GM/50 ML BAG IV PRN (19:08)
[2017-08-14] MEDS ORDERED: ACETAMINOPHEN 325 MG TABLET PO PRN (19:08)
[2017-08-14] MEDS ORDERED: traZODone HCL 50 MG TABLET PO PRN (19:08)
[2017-08-14] MEDS ORDERED: 0.9 % SODIUM CHLORIDE 1,000 ML IV SCH (19:08)
[2017-08-14] MEDS: DOCUSATE SODIUM 100 MG CAPSULE PO SCH (20:12)
[2017-08-14] MEDS: 0.9 % SODIUM CHLORIDE 10 ML SYRINGE IV SCH (20:13)
[2017-08-14] MEDS ORDERED: 0.9 % SODIUM CHLORIDE 250 ML IV SCH (20:30)
[2017-08-14] MEDS ORDERED: SENNOSIDES/DOCUSATE SODIUM 1 TAB TABLET PO SCH (21:00)
[2017-08-15 04:33] LABS: Mean Cell Volume 89.9 fL (80.0-100.0); Mean Corpuscular HGB Conc 33.2 g/dL (31.0-36.0); Mean Corpuscular Hemoglobin 29.9 pg (26.0-34.0); Platelet Count 226 K/mcL (140-440); RBC 3.46 M/mcL (4.00-5.20); Red Cell Distribution Width 19.1 % (11.5-14.5)
[2017-08-15 04:49] LABS: ALT/SGPT 9 U/l (0-40); Albumin 2.6 gm/dL (3.2-5.2); Albumin/Globulin Ratio 1.2 (1.0-2.3); Alkaline Phosphatase 114 U/L (39-117); Bilirubin,Direct 0.3 mg/dL (0.0-0.3); Blood Urea Nitrogen 24 mg/dl (8-23); Gamma Glutamyl Transpeptidase 18 U/L (5-36); Uric Acid 4.4 mg/dL (2.5-8.0)
[2017-08-15 05:34] LABS: Anisocytosis 1+ (NONE SEEN); Band Neutrophils % 1 % (0-10); Lymphocytes % 29 % (15-49); Monocytes % (Manual) 7 % (1-12); Platelet Estimate NORMAL (NORMAL); RBC Morphology ABNORMAL (NORMAL); Segmented Neutrophils % 63 % (38-78)
[2017-08-15] MEDS: 0.9 % SODIUM CHLORIDE 10 ML SYRINGE IV SCH ×2 (05:54→12:47)
--- NOTE | 2017-08-15 06:09 | XRay Report ---
CLINICAL INFORMATION: Leg pain. Status post open reduction and internal fixation of right hip and distal femoral fractures TECHNIQUE: AP and crosstable lateral views of the right hip and right femur COMPARISON: Previous examinations dated 06/28/2017, 06/27/2017, 06/07/2017 FINDINGS: Comminuted right intertrochanteric hip fracture. There is a gamma nail configuration. There is bony callus formation but fracture lines remain visible. There has been interval progression of healing since 06/27/2017. Comminuted distal right femoral fracture. There is a dynamic compression plate as well as cerclage wires. There is bony callus formation but fracture lines remain visible. No new fracture. No acute abnormality. Examination was initially interpreted by [facility] IMPRESSION: 1. Status post open reduction and internal fixation of right intertrochanteric hip fracture in distal right femoral fracture 2. Healing fractures with bony callus formation. No solid bony union 3. No acute fracture. Interpreted and Authenticated by: Hugo Alejandre 08/15/17
--- NOTE | 2017-08-15 07:09 | History and Physical Report ---
DATE OF ADMISSION: 08/14/2017 DATE OF ADMISSION: 08/14/2017 REASON FOR ADMISSION: Bloody stool, bloody vomitus. HISTORY OF CHIEF COMPLAINT: Juanis is an 86-year-old with advanced dementia who resides in a care facility, was brought into [facility] Emergency Room with bloody vomitus and bloody stools that started this afternoon. The patient was evaluated in the ER. Subsequently GI was consulted and patient was started on PPI drip. Due to significant dementia no history could be obtained by the ER physician. Most of the history was obtained from review of medical records. The patient was directly sent to OR for upper endoscopy done by Dr. Rosas. Postprocedure the patient was transferred to ICU. At the time of evaluation, the patient is actively having large burgandy/ bloody bowels. She appears confused but non distressed. Again no history could be obtained due to patient's advanced dementia. No family members are present. The patient is currently on crystalloids and every 4 hour hemoglobin checks. REVIEW OF SYSTEMS: A 10-point review of system was attempted, but could not be performed. PAST MEDICAL HISTORY: 1. History of recurrent hip fractures and recent surgery in June. 2. Glaucoma. 3. Hypothyroidism. 4. Anxiety disorder. 5. Advanced dementia. 6. Degenerative joint disease. CURRENT MEDICATIONS: 1. Lorazepam 0.5. 2. Levothyroxine 100. 3. Timolol. 4. Hydrocodone/acetaminophen. 5. Docusate. 6. Aspirin 325. ALLERGIES: 1. PENICILLIN. 2. SULFA. SOCIAL HISTORY: The patient resides at a care facility. No history of significant alcoholism or smoking. FAMILY HISTORY: Noncontributory. PHYSICAL EXAMINATION: GENERAL: The patient is confused, disoriented and very lethargic. VITAL SIGNS: Blood pressure 139/58, respiratory rate 15, temperature 98.5, pulse 101, and saturations 93 percent on room air. HEENT: No conjunctival pallor noted. Pupils symmetric. Head is normocephalic. NECK: No lymphadenopathy. HEART: S1, S2 regular rhythm. ESM grade 1. Occasionally irregular rhythm. CHEST: Diminished breath sounds at bases. ABDOMEN: Soft and nontender. LOWER EXTREMITIES: No cyanosis or clubbing. Right lower extremity shortened and minimally rotated. SKIN: No suspicious lesions. PSYCHIATRIC: Underlying dementia, fatigued, lethargic, minimally responsive. NEURO: Could not be performed. LABS AND IMAGING: White count 12.4, hemoglobin 10.7. INR 1.2. Sodium 132, potassium 4.8, creatinine 1.2, BUN 17. LFTs unremarkable. Calcium 8.5. X-ray of chest: Negative. X-ray abdomen: Negative. ASSESSMENT AND PLAN: An 86-year-old with upper gastrointestinal bleed. 1. Upper gastrointestinal bleed status post endoscopy, duodenal ulcer, status post epinephrine injection. The patient will be continued on proton pump inhibitor IV twice daily after PPI bolus and will start clears as per recommendation of gastroenterology. 2. Blood loss anemia. Continue every 4 hour checks and transfuse if hemoglobin less than 7.5, in other word, 30 percent drop from baseline. 3. Other prior medical issues including degenerative joint disease. Continue pain medications at home dose. 4. History of glaucoma. Continue timolol. 5. Anxiety disorder. Continue Ativan. PLAN FOR TODAY: 1. Admit as observation. 2. Telemonitoring. 3. Every 4 hour hemoglobin and hematocrit and transfusion as indicated. 4. IV PPI. 5. Advance to clears as per GI recommendations. AA:charles Job ID: [id number] Doc ID: [id number] Helio MARQUIS
[2017-08-15] MEDS ORDERED: PANTOPRAZOLE 40 MG VIAL IV SCH ×2 (07:30→17:00)
[2017-08-15] MEDS: DOCUSATE SODIUM 100 MG CAPSULE PO SCH ×2 (07:36→20:52)
--- NOTE | 2017-08-15 07:49 | Operative Note ---
DATE OF OPERATION: 08/14/2017 PREPROCEDURE DIAGNOSIS: Upper GI bleed secondary to ulcer. POSTPROCEDURE DIAGNOSES: 1. Upper gastrointestinal bleed secondary to large duodenal ulcer. 2. Additional smaller ulcers or erosions. PROCEDURE: Esophagogastroduodenoscopy with control of bleeding and biopsy. INSTRUMENT USED: Olympus JESSIE [id number] endoscope. SPECIMENS OBTAINED: Biopsies from antrum for histopathology and CLOtest. CLOtest RESULTS: Negative INDICATIONS: The patient is an 86-year-old lady who was referred to me by the Emergency Room physician, Dr. Ruiz. The patient's primary care provider is Dr. Vic Dimas. I believe the patient has had some orthopedic work done recently. She has been taking aspirin about #2 325 mg units from time to time. Today around no, she did have some blood per rectum. She also vomited some blood. She was fairly hemodynamically stable when she was evaluated in the emergency department late this afternoon or early evening. Blood pressure was about 120 systolic. Pulse was around 80. Hemoglobin was fairly reasonable, I believe in the 10 or 11 gram range. Decision was made to proceed with the EGD promptly. INFORMED CONSENT: The procedure was reviewed with the patient. The patient had no further questions and accepts the risks and benefits thereof. One of the risks that were discussed included . Additional risks that were also discussed included bleeding, reaction to medication, possible perforation and possible need for surgery. IV MEDICATIONS USED: Versed 2 and propofol 120 mg. FINDINGS: ESOPHAGUS: Proximal, mid and distal esophagus appeared fairly normal. EG JUNCTION: This was around 38 cm plus or minus. STOMACH: Cardia, fundus and body and antrum: Visualized mucosa was fairly normal. There was a little bit of blood noted. Biopsies were taken from the antrum for histopathology and CLOtest. PYLORUS: Normal. DUODENUM: In the duodenal bulb, there were a few small ulcers or erosions. I would estimate around two or three from around 5 to 7 or 8 mm in size. Near the junction of the bulb and descending limb of the duodenum, there was an adherent clot presumably over an ulcer. This is estimated to be about 1 to 1-1/2 by about 3 cm in size. This area around the ulcer and in the ulcer crater was injected with a total of 20 mL of hypertonic saline/epinephrine mixture. After this was done, there was some bleeding for a while. Additional hypertonic epinephrine was administered. The clot seemed fairly adherent despite washing with a spray of water. Decision was made to try to place clips rather than using the heater probe. A total of 3 clips were adherent. One stayed in the endoscope upon withdrawal of the deploying device and another did not stay secured. The descending limb of the duodenum appeared normal. RECOMMENDATIONS: The patient may have a few sips of water and some chips of ice tonight. IV PPI medication would be recommended. If she is doing well in the morning a liquid diet can be started. It would be best if she could avoid her nonsteroidal anti-inflammatory drugs and avoid aspirin for a while until the ulcer is significantly improved. I would recommend a follow-up EGD in 3 months to check status of healing. The patient did not have sufficient symptoms from this ulcer to cause her to seek medical care until she started bleeding. Therefore, I do not believe we can rely on her symptoms. Follow-up EGD in about 3 months is important to check for status of healing. SEDATION TIME: 18:10-18:55. Please refer to the preprocedure nurse's notes, procedure flowsheet, procedure record, and post-procedure assessment for details of the sedation including the pre-, intra-and post-service work. CRD:adam Job ID: [id number] Doc ID: [id number] Marquis Dimas MD [facility]ENTERMoraima
[2017-08-15] MEDS ORDERED: MULTIVIT,THER IRON,CA,FA & MIN 1 TABLET PO SCH (09:00)
--- NOTE | 2017-08-15 11:35 | Internal Med Progress Note ---
Medical - PN: Subj Patient information: Note initiated : 08/15/17 at 11:29 am Service Date, if different from initiated Date: [] Patient: Juanis Berry 86 y/o F admitted on 08/14/17 for Upper GI Bleed. Chief Complaint: [] Interval history: patient admitted with bloody emesis and melena. Hemoglobin 11 on admission. History of underlying dementia. history of multiple aspirin intake. Start her on PPI. Emergent endoscopy reveals duodenal ulcer. Keep nothing by mouth. Transfer to ICU. Every 4 H&H. Transfuse 2 units PRBC August 15- hemoglobin down to 7.4 overnight requiring 2 units blood transfusion. Repeat hemoglobin 10.3. Continue every 4 H&H. On IV PPI. Critically Ill, - Constitutional Vitals: Vital Signs Temp Pulse Resp BP Pulse Ox 99.0 F H 86 16 139/88 98 08/15/17 04:01 08/15/17 04:01 08/15/17 04:01 08/15/17 04:01 08/15/17 04:01 Period Temp Pulse Resp BP Sys/Patrick Pulse Ox Last 24 Hr 98.5 F-99.5 F 74-106 14-25 80-152/38-106 91-100 Intake and Output 08/14/17 08/15/17 08/15/17 21:59 05:59 13:59 Intake Total 30 / 30 1150 / 1150 114 / 114 Output Total 800 / 800 100 / 100 Balance 30 / 30 350 / 350 Weight 117 lb 4.16 oz Intake & Output: Intake & Output 08/14/17 08/15/17 08/15/17 21:59 05:59 13:59 Intake Total 30 / 30 1150 / 1150 114 / 114 Output Total 800 / 800 100 / 100 Balance 30 / 30 350 / 350 Weight 117 lb 4.16 oz Intake: IV 30 / 30 500 / 500 114 / 114 Sodium Chloride 0.9% 250 ml @ 114 / 114 20 mls/hr IV .[id number] [facility] Rx#: [id number] Protonix 80 mg In Sodium 30 / 30 Chloride 0.9% 100 ml @ 8 MG/HR 10 mls/hr IV Q10H [facility] Rx#: [id number] Blood Product 650 / 650 Output: Urine Catheter Amount 550 / 550 Stool 250 / 250 100 / 100 Other: Stool Size Moderate Small Small Stool Color Dark Red Blood Dark Red Blood Dark Red Blood Stool Consistency Liquid Liquid Liquid # Bowel Movements 1 1 # of times incontinent of 1 Bowels # Emeses 2 General appearance: no acute distress Exam: underlying dementia no anxiety tachycardia Nonlabored breathing Medical - PN: Obj Da - Labs CBC & Chem 7: 08/15/17 04:00 08/15/17 04:00 Labs: Abnormal Lab Results 08/15/17 08/15/17 08/15/17 04:00 04:00 00:05 WBC RBC 3.46 L Hgb 10.3 L 7.4 L Hct 31.1 L POC Hct RDW 19.1 H MPV 6.8 L Lymph # (Auto) Anisocytosis 1+ A POC PT POC Sodium Sodium Chloride Carbon Dioxide 20 L POC Total CO2 Anion Gap BUN 24 H Creatinine Glucose POC Glucose Calcium 7.8 L POC WB Ioniz Calcium Total Bilirubin 1.4 H Alkaline Phosphatase Total Protein 4.7 L Albumin 2.6 L Globulin 2.1 L 08/14/17 08/14/17 08/14/17 20:40 17:27 16:39 WBC RBC Hgb 8.6 L Hct POC Hct 34.0 L RDW MPV Lymph # (Auto) Anisocytosis POC PT 14.8 H POC Sodium 132 L Sodium 132 L Chloride 95 L Carbon Dioxide 19 L POC Total CO2 21 L Anion Gap 18.0 H BUN Creatinine 1.2 H Glucose 182 H POC Glucose 183 H Calcium 8.5 L POC WB Ioniz Calcium 1.10 L Total Bilirubin Alkaline Phosphatase 156 H Total Protein Albumin Globulin 08/14/17 16:39 WBC 12.4 H RBC 3.40 L Hgb 10.7 L Hct 32.4 L POC Hct RDW 16.1 H MPV 6.9 L Lymph # (Auto) 5.2 H Anisocytosis POC PT POC Sodium Sodium Chloride Carbon Dioxide POC Total CO2 Anion Gap BUN Creatinine Glucose POC Glucose Calcium POC WB Ioniz Calcium Total Bilirubin Alkaline Phosphatase Total Protein Albumin Globulin Meds: Medications Acetaminophen (Tylenol) 650 mg PO Q4-6HP PRN PRN Reason: PAIN/FEVER > 101 Last Admin: 08/14/17 23:19 Dose: 650 mg Docusate Sodium (Colace) 100 mg PO BID [facility]ICHOL[facility] Last Admin: 08/15/17 07:36 Dose: Not Given Magnesium Sulfate (Magnesium Sulfate) 2 gm in 50 mls @ 50 mls/hr IV UD PRN PRN Reason: MG = or < 1.7 Sodium Chloride (Sodium Chloride 0.9%) 1,000 mls @ 50 mls/hr IV .Q20H [facility] Stop: 08/17/17 07:07 Last Admin: 08/15/17 00:58 Dose: 50 mls/hr Iron Carb/Multivit/[place]/Folic Acid (Multivitamin W/Minerals) 1 tab PO DAILY [facility] Last Admin: 08/15/17 08:49 Dose: Not Given Ondansetron HCl (Zofran) 4 mg IV Q4-6HP PRN PRN Reason: Nausea And Vomiting Pantoprazole Sodium (Protonix) 40 mg IV BIDAC [facility] Last Admin: 08/15/17 09:00 Dose: 40 mg Potassium Chloride (Klor-Con) 40 meq PO DAILYP PRN PRN Reason: K+ < 3.5 Senna/Docusate Sodium (Senna Plus Tablet) 1 tab PO HS [facility] Last Admin: 08/14/17 20:12 Dose: Not Given Sodium Chloride (Saline Flush) 10 ml IV Q8 [facility] Last Admin: 08/15/17 05:54 Dose: Not Given Trazodone HCl (Desyrel) 50 mg PO HSP PRN PRN Reason: Insomnia Last Admin: 08/14/17 23:19 Dose: 50 mg Medical - PN: A/P - Time Spent With Patient Total time spent is greater than 50% in coordination of care (as documented) at patient's floor/unit and/or counseling patient: Greater than 35 minutes (critical care time) - Narrative A/P Narrative: * upper GI bleed secondary to duodenal ulceration- status post EGD/clipping/IV PPI. Ongoing ICU care * Acute blood loss anemia-continue transfusion as indicated * Underlying dementia at baseline * other prior medications for pre-existing medical condition currently being held in light of GI bleed. NPO status plan * PRBC transfusion as indicated * IV PPI * Patient critically ill. Continue ICU care.. High risk mortality Medical - PN: Qual - VTE Deep Vein Thrombosis/Pulmonary Embolism Present on Admission: No
[2017-08-15] MEDS ORDERED: POTASSIUM CHLORIDE 20 MEQ PACKET PO PRN (11:37)
[2017-08-15] MEDS ORDERED: ONDANSETRON 4 MG/2 ML VIAL IV PRN (11:37)
[2017-08-15] MEDS ORDERED: ACETAMINOPHEN 325 MG TABLET PO PRN (11:37)
[2017-08-15] MEDS ORDERED: MAGNESIUM SULFATE 2 GM/50 ML BAG IV PRN (11:37)
[2017-08-15] MEDS: 0.9 % SODIUM CHLORIDE 1,000 ML IV SCH ×2 (12:47→20:59)
[2017-08-15] MEDS: PANTOPRAZOLE 80 MG in 0.9 % SODIUM CHLORIDE 100 ML IV SCH (13:24)
[2017-08-15] MEDS ORDERED: traZODone HCL 50 MG TABLET PO PRN (21:00)
[2017-08-15] MEDS ORDERED: SENNOSIDES/DOCUSATE SODIUM 1 TAB TABLET PO SCH (21:00)
[2017-08-16] MEDS: 0.9 % SODIUM CHLORIDE 10 ML SYRINGE IV SCH ×5 (00:21→21:15)
[2017-08-16] MEDS: PANTOPRAZOLE 80 MG in 0.9 % SODIUM CHLORIDE 100 ML IV SCH ×2 (00:23→11:25)
[2017-08-16 05:20] LABS: ALT/SGPT 8 U/l (0-40); Albumin 2.7 gm/dL (3.2-5.2); Albumin/Globulin Ratio 1.5 (1.0-2.3); Alkaline Phosphatase 105 U/L (39-117); Bilirubin,Direct < 0.2 mg/dL (0.0-0.3); Blood Urea Nitrogen 17 mg/dl (8-23); Gamma Glutamyl Transpeptidase 17 U/L (5-36); Uric Acid 4.9 mg/dL (2.5-8.0)
[2017-08-16 05:24] LABS: Mean Cell Volume 90.7 fL (80.0-100.0); Mean Corpuscular HGB Conc 33.2 g/dL (31.0-36.0); Mean Corpuscular Hemoglobin 30.1 pg (26.0-34.0); Platelet Count 176 K/mcL (140-440); Red Cell Distribution Width 19.4 % (11.5-14.5)
[2017-08-16 06:32] LABS: Anisocytosis 2+ (NONE SEEN); Eosinophils % (Manual) 2 % (0-7); Lymphocytes % 29 % (15-49); Monocytes % (Manual) 7 % (1-12); Platelet Estimate NORMAL (NORMAL); RBC Morphology ABNORM (NORMAL); Segmented Neutrophils % 62 % (38-78)
[2017-08-16] MEDS: DOCUSATE SODIUM 100 MG CAPSULE PO SCH (08:19)
[2017-08-16] MEDS ORDERED: MULTIVIT,THER IRON,CA,FA & MIN 1 TABLET PO SCH (09:00)
--- NOTE | 2017-08-16 10:23 | Internal Med Progress Note ---
Medical - PN: Subj Patient information: Note initiated : 08/16/17 at 10:20 am Service Date, if different from initiated Date: [] Patient: Juanis Berry 86 y/o F admitted on 08/15/17 for Upper GI Bleed. Chief Complaint: [] Interval history: patient admitted with bloody emesis and melena. Hemoglobin 11 on admission. History of underlying dementia. history of multiple aspirin intake. Start her on PPI. Emergent endoscopy reveals duodenal ulcer. Keep nothing by mouth. Transfer to ICU. Every 4 H&H. Transfuse 2 units PRBC August 15- hemoglobin down to 7.4 overnight requiring 2 units blood transfusion. Repeat hemoglobin 10.3. Continue every 4 H&H. On IV PPI. Critically Ill, patient has had multiple bloody bowel since this morning. On every 4 H&H along with PPI drip. Extended family conference undertaken with son , daughter and son -in-law regarding goals of care in light of persistent GI bleed and high risk mortality. Treatment options including tertiary Center transfer for tagged red blood cell scan/surgery consult in light of failure of endoscopic procedure and persistent bleeding however family decided against transfer to tertiary Center and would want to continue existing treatment including blood transfusions and IV drips. If however patient continues to deteriorate they would want mother to be kept comfortable. August 16- patient continues to experience bloody bowels. Dr. Chavez recommends continuing hemoglobin check/patient on PPI drip. hemoglobin dropped from peak of 11.3-8 this morning. Persistent bloody bowels. Blood pressures systolic dropping to low 70s. Patient critically ill and high risk mortality. Family aware. Family does not want patient to be transferred to tertiary Center or 4 further intervention including gel embolization angiography or surgery consult. Continue every 4 hemoglobin check and transfuse as necessary. Await further family discussion for future goals of care - Constitutional Vitals: Vital Signs Temp Pulse Resp BP Pulse Ox 98.1 F 92 H 15 94/59 98 08/16/17 08:04 08/16/17 05:23 08/16/17 08:04 08/16/17 08:04 08/16/17 08:04 Period Temp Pulse Resp BP Sys/Patrick Pulse Ox Last 24 Hr 97.8 F-98.5 F 84-98 12-18 79-154/40-123 95-100 Intake and Output 08/15/17 08/16/17 08/16/17 21:59 05:59 13:59 Intake Total 250 / 250 100 / 100 Output Total 1270 / 1270 230 / 230 Balance -1020 / -1020 -130 / -130 Weight 116 lb Intake & Output: Intake & Output 08/15/17 08/16/17 08/16/17 21:59 05:59 13:59 Intake Total 250 / 250 100 / 100 Output Total 1270 / 1270 230 / 230 Balance -1020 / -1020 -130 / -130 Weight 116 lb Intake: IV 100 / 100 Protonix 80 mg In Sodium 100 / 100 Chloride 0.9% 100 ml @ 8 MG/HR 10 mls/hr IV Q10H [facility] Rx#: [id number] Oral 250 / 250 Output: Urine Catheter Amount 1170 / 1170 230 / 230 Stool 100 / 100 Other: Meal Dinner Percent of Meal Consumed <10% Feeding Ability Needs Supervision Stool Size Smear Smear Stool Color Green Blood Tinged Stool Consistency Watery Liquid # Bowel Movements 1 General appearance: no acute distress Exam: pleasantly confused Actively bleeding Hypotensive Nonlabored breathing no anxiety Medical - PN: Obj Da - Labs CBC & Chem 7: 08/16/17 08:02 08/16/17 03:55 Labs: Abnormal Lab Results 08/16/17 08/16/17 08/16/17 08:02 03:55 03:55 WBC RBC 3.10 L Hgb 10.2 L 9.3 L Hct 28.1 L POC Hct RDW 19.4 H MPV 7.0 L Lymph # (Auto) RBC Morphology Abnorm A Anisocytosis 2+ A POC PT POC Sodium Sodium Chloride Carbon Dioxide 20 L POC Total CO2 Anion Gap BUN Creatinine Glucose POC Glucose Calcium 7.9 L POC WB Ioniz Calcium Total Bilirubin Alkaline Phosphatase Total Protein 4.5 L Albumin 2.7 L Globulin 1.8 L 08/16/17 08/15/17 08/15/17 00:10 20:47 16:16 WBC RBC Hgb 8.8 L 10.7 L 11.3 L Hct POC Hct RDW MPV Lymph # (Auto) RBC Morphology Anisocytosis POC PT POC Sodium Sodium Chloride Carbon Dioxide POC Total CO2 Anion Gap BUN Creatinine Glucose POC Glucose Calcium POC WB Ioniz Calcium Total Bilirubin Alkaline Phosphatase Total Protein Albumin Globulin 08/15/17 08/15/17 08/15/17 12:27 04:00 04:00 WBC RBC 3.46 L Hgb 11.5 L 10.3 L Hct 34.8 L 31.1 L POC Hct RDW 19.1 H MPV 6.8 L Lymph # (Auto) RBC Morphology Anisocytosis 1+ A POC PT POC Sodium Sodium Chloride Carbon Dioxide 20 L POC Total CO2 Anion Gap BUN 24 H Creatinine Glucose POC Glucose Calcium 7.8 L POC WB Ioniz Calcium Total Bilirubin 1.4 H Alkaline Phosphatase Total Protein 4.7 L Albumin 2.6 L Globulin 2.1 L 08/15/17 08/14/17 08/14/17 00:05 20:40 17:27 WBC RBC Hgb 7.4 L 8.6 L Hct POC Hct RDW MPV Lymph # (Auto) RBC Morphology Anisocytosis POC PT 14.8 H POC Sodium Sodium Chloride Carbon Dioxide POC Total CO2 Anion Gap BUN Creatinine Glucose POC Glucose Calcium POC WB Ioniz Calcium Total Bilirubin Alkaline Phosphatase Total Protein Albumin Globulin 08/14/17 08/14/17 16:39 16:39 WBC 12.4 H RBC 3.40 L Hgb 10.7 L Hct 32.4 L POC Hct 34.0 L RDW 16.1 H MPV 6.9 L Lymph # (Auto) 5.2 H RBC Morphology Anisocytosis POC PT POC Sodium 132 L Sodium 132 L Chloride 95 L Carbon Dioxide 19 L POC Total CO2 21 L Anion Gap 18.0 H BUN Creatinine 1.2 H Glucose 182 H POC Glucose 183 H Calcium 8.5 L POC WB Ioniz Calcium 1.10 L Total Bilirubin Alkaline Phosphatase 156 H Total Protein Albumin Globulin Meds: Medications Acetaminophen (Tylenol) 650 mg PO Q4-6HP PRN PRN Reason: PAIN/FEVER > 101 Last Admin: 08/15/17 20:48 Dose: 650 mg Docusate Sodium (Colace) 100 mg PO BID [facility] Last Admin: 08/16/17 08:19 Dose: Not Given Magnesium Sulfate (Magnesium Sulfate) 2 gm in 50 mls @ 50 mls/hr IV UD PRN PRN Reason: MG = or < 1.7 Sodium Chloride (Sodium Chloride 0.9%) 1,000 mls @ 50 mls/hr IV .Q20H [facility] Stop: 08/17/17 07:07 Last Admin: 08/15/17 20:59 Dose: 50 mls/hr Pantoprazole Sodium 80 mg/ (Sodium Chloride) 100 mls @ 10 mls/hr IV Q10H [facility] PRN Reason: 8 MG/HR Last Admin: 08/16/17 00:23 Dose: 8 mg/hr, 10 mls/hr Iron Carb/Multivit/[place]/Folic Acid (Multivitamin W/Minerals) 1 tab PO DAILY [facility] Last Admin: 08/16/17 08:20 Dose: Not Given Ondansetron HCl (Zofran) 4 mg IV Q4-6HP PRN PRN Reason: Nausea And Vomiting Potassium Chloride (Klor-Con) 40 meq PO DAILYP PRN PRN Reason: K+ < 3.5 Senna/Docusate Sodium (Senna Plus Tablet) 1 tab PO HS [facility] Last Admin: 08/15/17 20:52 Dose: Not Given Sodium Chloride (Saline Flush) 10 ml IV Q8 [facility] Last Admin: 08/16/17 05:14 Dose: Not Given Trazodone HCl (Desyrel) 50 mg PO HSP PRN PRN Reason: Insomnia Last Admin: 08/15/17 20:48 Dose: 50 mg Medical - PN: A/P - Time Spent With Patient Total time spent is greater than 50% in coordination of care (as documented) at patient's floor/unit and/or counseling patient: Greater than 35 minutes - Narrative A/P Narrative: * Upper GI bleed secondary to duodenal ulceration- persistent despite post EGD/ clipping/IV PPI. GI on board. Family refuses for patient transfer to tertiary Center for arteriography/gel embolization/surgical consult. * Acute blood loss anemia-continue PRBC transfusion as indicated.thank you for hemoglobin check. Hemoglobin down from 11.5-8 in last 6 hours with persistent bleed * Underlying dementia at baseline * other prior medications for pre-existing medical condition currently being held in light of GI bleed. NPO status plan * PPI/PRBC transfusion as indicated * family conference for goals of care * Imminent due to persistent bleeding * Patient critically ill. Medical - PN: Qual - VTE Deep Vein Thrombosis/Pulmonary Embolism Present on Admission: No
--- NOTE | 2017-08-16 11:01 | Surgical Pathology Report ---
HISTOLOGY SPECIMEN MICROSCOPIC DIAGNOSIS STOMACH, ANTRUM, BIOPSIES: -- GASTRIC MUCOSA WITH MINIMAL CHRONIC INFLAMMATION AND PATCHY CHANGES SUGGESTIVE OF REACTIVE GASTROPATHY. -- NO HELICOBACTER TYPE ORGANISMS IDENTIFIED (ALCIAN YELLOW STAIN WITH ADEQUATE TECHNICAL CONTROL). (RLF:irma) CLINICAL HISTORY Vomiting and diarrhea of hector red blood. GROSS DESCRIPTION Received in formalin labeled antral biopsies, are four rodriguez tissue fragments 0.2 to 0.4 cm. Totally submitted - one cassette. (STM:[facility]) Electronically Signed by: Marina Aquino M.D.
[2017-08-16] MEDS: 0.9 % SODIUM CHLORIDE 1,000 ML IV SCH (11:24)
[2017-08-16] MEDS ORDERED: LORazepam 2 MG/ML VIAL IV PRN (13:17)
[2017-08-16] MEDS: HYDROmorphone 2 MG/ML VIAL IV PRN (19:36)
[2017-08-17] MEDS: 0.9 % SODIUM CHLORIDE 10 ML SYRINGE IV SCH ×2 (05:30→14:07)
[2017-08-17] MEDS: HYDROmorphone 2 MG/ML VIAL IV PRN ×2 (10:00→18:13)
[2017-08-18] MEDS: 0.9 % SODIUM CHLORIDE 10 ML SYRINGE IV SCH ×3 (00:21→14:55)
[2017-08-18] MEDS: HYDROmorphone 2 MG/ML VIAL IV PRN ×2 (01:24→07:18)
--- NOTE | 2017-08-18 07:31 | Internal Med Progress Note ---
Medical - PN: Subj Patient information: Note initiated : 08/17/17 at 6:29 am Service Date, if different from initiated Date: [] Patient: Juanis Berry 86 y/o F admitted on 08/15/17 for Upper GI Bleed. Chief Complaint: [] Interval history: patient admitted with bloody emesis and melena. Hemoglobin 11 on admission. History of underlying dementia. history of multiple aspirin intake. Start her on PPI. Emergent endoscopy reveals duodenal ulcer. Keep nothing by mouth. Transfer to ICU. Every 4 H&H. Transfuse 2 units PRBC August 15- hemoglobin down to 7.4 overnight requiring 2 units blood transfusion. Repeat hemoglobin 10.3. Continue every 4 H&H. On IV PPI. Critically Ill, patient has had multiple bloody bowel since this morning. On every 4 H&H along with PPI drip. Extended family conference undertaken with son , daughter and son -in-law regarding goals of care in light of persistent GI bleed and high risk mortality. Treatment options including tertiary Center transfer for tagged red blood cell scan/surgery consult in light of failure of endoscopic procedure and persistent bleeding however family decided against transfer to tertiary Center and would want to continue existing treatment including blood transfusions and IV drips. If however patient continues to deteriorate they would want mother to be kept comfortable. August 16- patient continues to experience bloody bowels. Dr. Chavez recommends continuing hemoglobin check/patient on PPI drip. hemoglobin dropped from peak of 11.3-8 this morning. Persistent bloody bowels. Blood pressures systolic dropping to low 70s. Patient critically ill and high risk mortality. Family aware. Family does not want patient to be transferred to tertiary Center or 4 further intervention including gel embolization angiography or surgery consult. Continue every 4 hemoglobin check and transfuse as necessary. Await further family discussion for future goals of care August 17- Persistent bleeding with hematemesis/loody stool. On comfort care measures. Case discussed with family/SNF. Patient comfortable - Constitutional Vitals: Vital Signs Temp Pulse Resp BP Pulse Ox 98.3 F 102 H 18 116/73 94 08/18/17 06:53 08/17/17 20:00 08/18/17 06:53 08/18/17 06:53 08/18/17 06:53 Period Temp Pulse Resp BP Sys/Patrick Pulse Ox Last 24 Hr 97.2 F-98.3 F 102 16-18 112-124/69-73 94-95 Intake and Output 08/17/17 08/18/17 08/18/17 21:59 05:59 13:59 Intake Total 200 / 200 Output Total 250 / 250 Balance -50 / -50 Weight 112 lb 8 oz Intake & Output: Intake & Output 08/17/17 08/18/17 08/18/17 21:59 05:59 13:59 Intake Total 200 / 200 Output Total 250 / 250 Balance -50 / -50 Weight 112 lb 8 oz Intake: Oral 200 / 200 Output: Urine Catheter Amount 250 / 250 Other: Stool Size Moderate Stool Color Dark Red Blood Stool Consistency Liquid # Bowel Movements 1 # of times incontinent of 1 Bowels General appearance: cooperative, no acute distress Exam: pleasantly confused Medical - PN: Obj Da - Labs CBC & Chem 7: 08/16/17 14:01 08/16/17 03:55 Labs: Abnormal Lab Results 08/16/17 08/16/17 08/16/17 14:01 08:02 03:55 RBC Hgb 10.1 L 10.2 L Hct 30.4 L RDW MPV RBC Morphology Anisocytosis Carbon Dioxide 20 L Calcium 7.9 L Total Protein 4.5 L Albumin 2.7 L Globulin 1.8 L 08/16/17 08/16/17 08/15/17 03:55 00:10 20:47 RBC 3.10 L Hgb 9.3 L 8.8 L 10.7 L Hct 28.1 L RDW 19.4 H MPV 7.0 L RBC Morphology Abnorm A Anisocytosis 2+ A Carbon Dioxide Calcium Total Protein Albumin Globulin 08/15/17 08/15/17 16:16 12:27 RBC Hgb 11.3 L 11.5 L Hct 34.8 L RDW MPV RBC Morphology Anisocytosis Carbon Dioxide Calcium Total Protein Albumin Globulin Meds: Medications Hydromorphone HCl (Dilaudid) 0 mg IV Q2HP PRN PRN Reason: Pain Last Admin: 08/18/17 07:18 Dose: 0.5 mg Lorazepam (Ativan) 0 mg IV Q1HP PRN; Protocol PRN Reason: ANXIETY/SEDATION Sodium Chloride (Saline Flush) 10 ml IV Q8 [facility] Last Admin: 08/18/17 00:21 Dose: 10 ml Medical - PN: A/P - Time Spent With Patient Total time spent is greater than 50% in coordination of care (as documented) at patient's floor/unit and/or counseling patient: 15 - 24 minutes - Narrative A/P Narrative: * comfort care/palliation for end of life care- * Upper GI bleed secondary to duodenal ulceration * Acute blood loss anemia * Underlying dementia at baseline * pre-existing medical issues-follow medications held plan * continue comfort measures * possible transfer to SNF for end of life care * high-risk mortality in light of active bleed Medical - PN: Qual - VTE Deep Vein Thrombosis/Pulmonary Embolism Present on Admission: No
--- NOTE | 2017-08-18 10:16 | Discharge Summary ---
Medical - DS: Prov Patient information: Note initiated : 08/18/17 at 10:13 am Service Date, if different from initiated Date: [] Patient: Juanis Berry 86 y/o F admitted on 08/15/17 for Upper GI Bleed. Chief Complaint: [] Date of admission: 08/15/17 11:12 Discharge date: 08/18/17 Primary care physician: Vic Dimas Consults: 08/14/17 17:27 Consult to Physician [CONS] Stat Comment: Consulting Provider: Helio Huerta Reason For Exam: Physician to Consult 08/14/17 17:51 Consult to Physician [CONS] Stat Comment: Consulting Provider: Marquis Rosas Reason For Exam: Physician to Consult Medical - DS: Meds - Discharge Medications Prescriptions: LORazepam [Lorazepam Intensol] 1 mg PO Q4H PRN #14 ml PRN Reason: Anxiety morphine 2 - 4 mg PO Q4-6HP PRN #20 oral.conc PRN Reason: Anxiety Active and Home Medications: Home Medications Timolol 0.5% Ophth Drops [Timoptic 0.5% Ophth Drops] 1 gtt OU BID 06/07/17 [ History Confirmed 06/27/17 Last Taken 06/27/17 08:00] Acetaminophen [Tylenol] 650 mg PO Q6HP PRN #30 tablet 06/10/17 [Rx Confirmed Last Taken 06/27/17 06:00] Docusate Sodium [Colace] 100 mg PO BID capsule 06/10/17 [Rx Confirmed 06/27/17 Last Taken 06/27/17 08:00] LORazepam [Ativan] 0.5 mg PO Q4HP PRN tablet 06/10/17 [Rx Confirmed 06/27/17 Last Taken 06/27/17 12:00] Levothyroxine [Synthroid] 100 mcg PO DAILY 06/27/17 [History Confirmed 06/27/17 Last Taken 06/27/17 06:00] Hydrocodone/APAP 7.5/325Mg [[place] 7.5-325Mg] 1 - 2 tab PO Q4HP PRN #50 tab 06/29 [Rx Last Taken Unknown] Methocarbamol [Robaxin] 750 mg PO Q6HP PRN tablet 06/30/17 [Rx Last Taken Unknown] Sennosides/Docusate Sodium [Senna Plus Tablet] 1 tab PO HS tablet 06/30/17 [Rx Last Taken Unknown] LORazepam [Ativan] 0.5 mg PO Q4HP PRN #60 tab 07/03/17 [Rx Last Taken Unknown] LORazepam [Lorazepam Intensol] 1 mg PO Q4H PRN #14 ml 08/18/17 [Rx Last Taken Unknown] morphine 2 - 4 mg PO Q4-6HP PRN #20 oral.conc 08/18/17 [Rx Last Taken Unknown] Medical - DS: Hosp Hospital course: DISCHARGE DIAGONSIS * comfort care/palliation for end of life care- all goals and treatment directed towards comfort * Upper GI bleed secondary to duodenal ulceration- Bleeding likely seized. Only one episode of bloody bowel in 24 hours. continue oral PPI * Acute blood loss anemia-secondary to GI bleed. * Underlying dementia at baseline BRIEF HOSPITAL COURSE patient admitted with bloody emesis and melena. Hemoglobin 11 on admission. History of underlying dementia. history of multiple aspirin intake. Start her on PPI. Emergent endoscopy reveals duodenal ulcer. Keep nothing by mouth. Transfer to ICU. Every 4 H&H. Transfuse 2 units PRBC August 15- hemoglobin down to 7.4 overnight requiring 2 units blood transfusion. Repeat hemoglobin 10.3. Continue every 4 H&H. On IV PPI. Critically Ill, patient has had multiple bloody bowel since this morning. On every 4 H&H along with PPI drip. Extended family conference undertaken with son , daughter and son -in-law regarding goals of care in light of persistent GI bleed and high risk mortality. Treatment options including tertiary Center transfer for tagged red blood cell scan/surgery consult in light of failure of endoscopic procedure and persistent bleeding however family decided against transfer to tertiary Center and would want to continue existing treatment including blood transfusions and IV drips. If however patient continues to deteriorate they would want mother to be kept comfortable. August 16- patient continues to experience bloody bowels. Dr. Chavez recommends continuing hemoglobin check/patient on PPI drip. hemoglobin dropped from peak of 11.3-8 this morning. Persistent bloody bowels. Blood pressures systolic dropping to low 70s. Patient critically ill and high risk mortality. Family aware. Family does not want patient to be transferred to tertiary Center or 4 further intervention including gel embolization angiography or surgery consult. Continue every 4 hemoglobin check and transfuse as necessary. Await further family discussion for future goals of care August 17- Persistent bleeding with hematemesis/loody stool. On comfort care measures. Case discussed with family/SNF. Patient comfortable August 18-no overnight bleeding. Stable hemodynamics. Discharging to care facility with home medication. Stop aspirin. Continue end-of-life palliation and comfort. No further hospitalizations if clinical deterioration noted. Discharge diagnosis: . - Time Spent with Patient Total time spent providing and/or coordinating discharge services: Greater than 30 minutes Medical - DS: Exam - Constitutional Vitals: Vital Signs Temp Pulse Resp BP Pulse Ox 08/18/17 06:53 98.3 F 18 116/73 94 08/17/17 20:00 98.0 F 102 H 16 124/71 95 Intake and Output 08/17/17 08/18/17 08/18/17 21:59 05:59 13:59 Intake Total 200 / 200 Output Total 250 / 250 Balance -50 / -50 Intake: Oral 200 / 200 Output: Urine Catheter Amount 250 / 250 Other: Stool Size Moderate Stool Color Dark Red Blood Stool Consistency Liquid # Bowel Movements 1 # of times incontinent of 1 Bowels Weight 112 lb 8 oz Medical - DS: A/P - Patient/Caregiver Discharge Instructions Activity: increase activity as tolerated Diet: Regular Diet Additional Instructions: continue Protonix twice daily Activity/diet and all treatments directed towards comfort DNR Comfort Care only No further hospitalization if clinical deterioration noted Dementia care and delirium watch fall risk Prescriptions: LORazepam [Lorazepam Intensol] 1 mg PO Q4H PRN #14 ml PRN Reason: Anxiety morphine 2 - 4 mg PO Q4-6HP PRN #20 oral.conc PRN Reason: Anxiety - Follow up Plan Follow up with: Vic Dimas MD [Primary Care Provider] - Disposition: Hospice - Medical Facility Prognosis: Fair Rehab Potential: Fair I certify that the patient requires SNF services: Yes Overall status at discharge: patient is progressing back to baseline Medical - DS: Qual - VTE Deep Vein Thrombosis/Pulmonary Embolism Present on Admission: No
[2017-08-18] MEDS: morphine 20 MG/ML ORAL.CONC SL PRN ×2 (12:32→13:34)
[2017-08-18] MEDS ORDERED: morphine 20 MG/ML ORAL.CONC SL PRN (13:42)
[2017-08-18] MEDS ORDERED: LORazepam 1 MG TABLET SL PRN (13:42)
[2017-08-18] MEDS ORDERED: ONDANSETRON ODT 4 MG TABLET SL PRN (13:42)
--- NOTE | 2017-08-18 16:12 | Event Note ---
Pt was deemed stable for discharge. However there were no jail beds available. Patient is therefore admitted/discharged to swing bed status
== END 2017-08-18 15:34 | disposition other institution (70) | DRG 378 ==
LOC: ED 16:21 → ICU 18:04 → SUR 18:04 → ICU 19:00 → MEDSUR 08-16 12:58
PROVIDERS: ADMIT Internal Medicine; ATTEND Internal Medicine